=== PATIENT | male | born 1935 | race African-American/Black ===

== ENCOUNTER 2016-07-04 12:46 | Observation (INO) | payer OTHER ==
[2016-07-04 12:56] VITALS: TEMP 97.4; BMI 26.9
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
[2016-07-04 14:30] LABS: BASOPHIL 0.3 % (0-2.0); EOSINOPHIL 2.1 % (0-4.5); MCH 23.1 pg (25.7-33.7); MCHC 31.1 g/dl (32.0-35.9); MEAN CELL VOLUME 74.2 fl (80-96); MEAN PLT VOLUME 9.6 fl (7.5-11.1); PLATELET COUNT 150 K/MM3 (134-434); RDW 13.2 % (11.9-15.9); WHITE BLOOD COUNT 6.4 K/mm3 (4.0-10.0)
[2016-07-04 14:56] LABS: ALBUMIN 3.6 g/dl (3.4-5.0); ANION GAP 5 (8-16); BILIRUBIN,TOTAL 0.6 mg/dL (0.2-1.0); CALCIUM 8.3 mg/dL (8.5-10.1); CO2 30 mmol/L (21-32); CREATININE 0.9 mg/dL (0.7-1.3); GLUCOSE,RANDOM 102 mg/dL (74-106); SGOT/AST 13 U/L (15-37); SGPT/ALT 21 U/L (12-78); TOT PROT 6.8 g/dl (6.4-8.2)
[2016-07-04 14:59] LABS: ALK PHOS 88 U/L (45-117); TROPONIN I < 0.02 ng/ml (0.00-0.05)
[2016-07-04] MEDS ORDERED: PANTOPRAZOLE 40 MG TABLET (FP) PO ONE (17:02)
[2016-07-04] MEDS ORDERED: PANTOPRAZOLE 40 MG TABLET (FP) ONE (17:15)
--- NOTE | 2016-07-04 17:18 | PN ---
Teaching Attending Note Name of Resident: Jerry Angulo ATTENDING PHYSICIAN STATEMENT I saw and evaluated the patient. I reviewed the resident's note and discussed the case with the resident. I agree with the resident's findings and plan as documented. SUBJECTIVE: seen and evalated at the bedside OBJECTIVE: resting comfortably in no distress, physical exam completely WNL ASSESSMENT AND PLAN: 81 year old man with HTN, parkinson's, CVA presented with classical symptoms of GERD (heart burn) -pt states he had a burning sensation in mid-epigastric region that radiated up and caused burning sensation in the back of his throat -states that he ate little last night and nothing this morning -trop negative -EKG shows no ischemic changes -give dose of protonix now and discharge with protonix daily
[2016-07-04 17:40] VITALS: BP 140/71; PULSE 60
--- NOTE | 2016-07-04 23:30 | EKG ---
Test Reason : Blood Pressure : / mmHG Vent. Rate : 084 BPM Atrial Rate : 084 BPM P-R Int : 164 ms QRS Dur : 082 ms QT Int : 362 ms P-R-T Axes : 031 -04 001 degrees QTc Int : 427 ms NORMAL SINUS RHYTHM POSSIBLE LEFT ATRIAL ENLARGEMENT BORDERLINE ECG WHEN COMPARED WITH ECG OF 22-AUG-2015 20:19, ID INTERVAL HAS DECREASED Confirmed by NOLAN NGUYỄN MD ([id number]) on 07/04/2016 11:29:53 PM Referred By: Confirmed By:NOLAN NGUYỄN MD
== END 2016-07-04 17:40 | disposition home or self-care (01) ==
LOC: JER 12:46 → UNDOADMOB 16:58 → JERBED 16:58 → UNDOADMOB 17:18 → JERBED 17:19
PROVIDERS: ADMIT Internal Medicine; ATTEND Internal Medicine
DX: K21.9 Gastro-esophageal reflux disease without esophagitis (principal); R07.89 Other chest pain; I10 Essential (primary) hypertension; E78.00 Pure hypercholesterolemia, unspecified; N40.0 Benign prostatic hyperplasia without lower urinary tract symptoms; I69.351 Hemiplegia and hemiparesis following cerebral infarction affecting right dominant side; G20 Parkinson's disease; Z87.891 Personal history of nicotine dependence
CPT/HCPCS: 36415; 71010-TC; 80053; 82550; 84484; 85025; 93005; 93010; 99283-25; G0378

== ENCOUNTER 2017-04-10 12:44 | Emergency (ER) | payer OTHER ==
[2017-04-10 13:09] VITALS: BMI 26.9
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
[2017-04-10 13:58] LABS: BASOPHIL 0.5 % (0-2.0); EOSINOPHIL 3.9 % (0-4.5); MCHC 31.2 g/dl (32.0-35.9); MEAN CELL VOLUME 73.9 fl (80-96); MEAN PLT VOLUME 9.5 fl (7.5-11.1); NEUTROPHILS 69.6 % (42.8-82.8); PLATELET COUNT 179 K/MM3 (134-434); RDW 13.6 % (11.9-15.9); WHITE BLOOD COUNT 7.8 K/mm3 (4.0-10.0)
[2017-04-10 14:28] LABS: ALBUMIN 3.6 g/dl (3.4-5.0); ALK PHOS 104 U/L (45-117); ANION GAP 7 (8-16); BILIRUBIN,TOTAL 0.7 mg/dL (0.2-1.0); CALCIUM 8.9 mg/dL (8.5-10.1); CO2 30 mmol/L (21-32); CREATININE 0.9 mg/dL (0.7-1.3); GLUCOSE,RANDOM 107 mg/dL (74-106); SGOT/AST 16 U/L (15-37); SGPT/ALT 24 U/L (12-78); TOT PROT 7.2 g/dl (6.4-8.2)
[2017-04-10 15:52] VITALS: BP 122/72; PULSE 65; TEMP 97.8
== END 2017-04-10 15:52 | disposition home or self-care (01) ==
LOC: JER 12:44 → JERFT 12:44 → JER 15:52
DX: R51 Headache (principal); I10 Essential (primary) hypertension; Z86.73 Personal history of transient ischemic attack (TIA), and cerebral infarction without residual deficits
CPT/HCPCS: 36415; 70450-TC; 80053; 85025; 99282-25

== ENCOUNTER 2017-09-05 12:59 | Emergency (ER) | payer OTHER ==
[2017-09-05 13:08] VITALS: TEMP 97; BMI 26.4
[2017-09-05] MEDS ORDERED: ACETAMINOPHEN 325 MG TABLET (FP) PO ONE (13:43)
--- NOTE | 2017-09-05 13:44 | PDOC ---
Attending Attestation - HPI HPI: 09/05/17 15:11 The patient is an 82 year old male with a significant PMH of CVA (with mostly resolved residual right-sided deficits), TIA, Parkinsons disease, HTN, hyperlipidemia, and on LINQ alarm security or surveillance monitor who presents to the emergency department with lower back pain beginning approximately 2 days ago. He reports his lower back pain is consistent and moderate, located worse in the L lumbar spine but also slightly in the midline. Denies LE weakness, numbness. Denies fevers/chills. He denies any dysuria, urinary incontinence or changes in frequency. The patient denies difficulty ambulating. Allergies: Penicillins, Aspirin PCP: Dr. Collins Carrizales - Physicial Exam PE: 09/05/17 15:11 GENERAL: Awake, alert, and fully oriented, in no acute distress. +Masked facies. HEAD: No signs of trauma EYES: PERRLA, EOMI, sclera anicteric, conjunctiva clear ENT: Auricles normal inspection, hearing grossly normal, nares patent, oropharynx clear without exudates. Moist mucosa NECK: Normal ROM, supple, no lymphadenopathy, JVD, or masses LUNGS: Breath sounds equal, clear to auscultation bilaterally. No wheezes, and no crackles HEART: Regular rate and rhythm, normal S1 and S2, no murmurs, rubs or gallops ABDOMEN: Soft, nontender, normoactive bowel sounds. No guarding, no rebound. No masses EXTREMITIES: Normal range of motion, no edema. No clubbing or cyanosis. No cords , erythema, or tenderness BACK: No midline spinal tenderness in cervical/thoracic region. +lumbar midline TTP and left lumbar paraspinal ttp. NEUROLOGICAL: Normal speech, cranial nerves intact, negative pronator drift, 5/ 5 strength in all 4 extremities, normal sensation to light touch in all 4 extremities, normal cerebellar exam, steady shuffling gait, normal reflexes. + cogwheel rigidity and L>R pill rolling tremor at rest. SKIN: Warm, Dry, normal turgor, no rashes or lesions noted. <Josh Merrill - Last Filed: 09/05/17 15:11> - Resident Resident Name: Lorne Borja - ED Attending Attestation I have performed the following: I have examined & evaluated the patient, The case was reviewed & discussed with the resident, I agree w/resident's findings & plan, Exceptions are as noted - Medical Decision Making 09/05/17 16:38 82-year-old male with multiple medical problems including Parkinson's disease presents emergency Department with atraumatic lumbar back pain. Vitals unremarkable. Exam with mild lumbar midline tenderness and left paraspinal lumbar tenderness. Patient has normal strength and sensation in lower extremities and no urinary/stool retention/incont and thus unlikely cauda equina. He has no fevers or chills concerning for abscess. CT scan negative for acute pathology/fractures. Likely muscular pain. Pain well controlled with tylenol, requests DC home. I discussed the physical exam findings, ancillary test results and final diagnoses with the patient. I answered all of the patient's questions. The patient was satisfied with the care received and felt comfortable with the discharge plan and treatment plan. The patient will call their primary care physician within 24 hours to arrange follow-up and will return to the Emergency Department with any new, persistent or worsening symptoms. <Giovanni Kirby - Last Filed: 09/05/17 16:46>
[2017-09-05] MEDS ORDERED: ACETAMINOPHEN 325 MG TABLET (FP) ONE (13:50)
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
[2017-09-05 15:53] VITALS: BP 130/77; PULSE 60
== END 2017-09-05 17:06 | disposition home or self-care (01) ==
LOC: JER 12:59
DX: M54.5 Low back pain (principal); I10 Essential (primary) hypertension; E78.00 Pure hypercholesterolemia, unspecified; G20 Parkinson's disease; I69.851 Hemiplegia and hemiparesis following other cerebrovascular disease affecting right dominant side; Z95.818 Presence of other cardiac implants and grafts
CPT/HCPCS: 72131-TC; 99283-25

== ENCOUNTER 2017-10-19 10:35 | Emergency (ER) | payer OTHER ==
[2017-10-19 10:42] VITALS: BP 158/70; PULSE 70; TEMP 97.8; BMI 27.7
[2017-10-19] MEDS ORDERED: KETOROLAC TROMETHAMINE 30 MG/1 ML VIAL IM ONE (11:51)
[2017-10-19] MEDS ORDERED: traMADol HCL 50 MG TABLET PO ONE (11:51)
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
[2017-10-19] MEDS ORDERED: traMADol HCL 50 MG TABLET ONE (11:58)
[2017-10-19] MEDS ORDERED: KETOROLAC TROMETHAMINE 30 MG/1 ML VIAL ONE (11:58)
== END 2017-10-19 12:23 | disposition home or self-care (01) ==
LOC: JERFT 10:35
PROC: 3E0233Z Introduction of Anti-inflammatory into Muscle, Percutaneous Approach (ICD-10-PCS; principal; 2017-10-19)
DX: M48.061 Spinal stenosis, lumbar region without neurogenic claudication (principal); I10 Essential (primary) hypertension; E78.5 Hyperlipidemia, unspecified; G20 Parkinson's disease; Z86.73 Personal history of transient ischemic attack (TIA), and cerebral infarction without residual deficits
CPT/HCPCS: 96372; 99281-25

== ENCOUNTER 2018-01-02 22:25 | Emergency (ER) | payer OTHER ==
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
[2018-01-02 22:41] VITALS: BP 146/80; PULSE 97; TEMP 97.6; BMI 26.4
[2018-01-02] MEDS ORDERED: SODIUM CHLORIDE 1,000 ML IV STA (23:00)
[2018-01-02] MEDS ORDERED: METOCLOPRAMIDE HCL INJECTION 10 MG/2 ML VIAL IVPB ONE (23:00)
[2018-01-02] MEDS ORDERED: METOCLOPRAMIDE HCL INJECTION 10 MG/2 ML VIAL ONE (23:28)
[2018-01-02 23:53] LABS: BASO % 0.9 % (0-2.0); EOS % 3.9 % (0-4.5); HEMOGLOBIN 12.9 GM/dL (11.7-16.9); LYMPH % 23.2 % (8-40); MCH 23.5 pg (25.7-33.7); MCHC 31.5 g/dl (32.0-35.9); MEAN CELL VOLUME 74.5 fl (80-96); MEAN PLT VOLUME 9.8 fl (7.5-11.1); MONO % 10.2 % (3.8-10.2); NEUT % 61.8 % (42.8-82.8); PLATELET COUNT 167 K/MM3 (134-434); RDW 13.3 % (11.9-15.9); WHITE BLOOD COUNT 6.9 K/mm3 (4.0-10.0)
[2018-01-03 00:28] LABS: ALBUMIN 3.7 g/dl (3.4-5.0); ANION GAP 5 (8-16); BILIRUBIN,TOTAL 0.2 mg/dL (0.2-1.0); BLOOD UREA NITROGEN 15 mg/dL (7-18); CALCIUM 8.8 mg/dL (8.5-10.1); CHLORIDE 106 mmol/L (98-107); CO2 32 mmol/L (21-32); CREATININE 1.1 mg/dL (0.7-1.3); GLUCOSE,RANDOM 97 mg/dL (74-106); SGOT/AST 25 U/L (15-37); SGPT/ALT 28 U/L (12-78); SODIUM 143 mmol/L (136-145); TOT PROT 7.3 g/dl (6.4-8.2)
[2018-01-03 00:29] LABS: ALK PHOS 100 U/L (45-117)
[2018-01-03] MEDS ORDERED: DEXAMETHASONE SOD PHOSPHATE 20 MG/5 ML VIAL IVPB STA (01:55)
[2018-01-03] MEDS ORDERED: KETOROLAC TROMETHAMINE 15 MG/ML VIAL IVPUSH ONE (01:57)
--- NOTE | 2018-01-03 02:02 | PDOC ---
Attending Attestation - Resident Resident Name: JagdishdainasinanFrank - ED Attending Attestation I have performed the following: I have examined & evaluated the patient, The case was reviewed & discussed with the resident, I agree w/resident's findings & plan, Exceptions are as noted - HPI HPI: 01/03/18 01:58 82 yo male with 3 day history of left sided headache - Physicial Exam PE: 01/03/18 01:58 wnwd 82 yo male in no acute distress p/w left sided headache head ncat neck supple eyes howard eomi lungs cta b/l cvs [id number] abd nontender musculoskeletal - resting tremoe in rt arm,soft voice, alert and conversant neuro axox3,resting hand tremor,moving all extremities - Medical Decision Making 01/04/18 16:49 pt had chronic resting tremor,soft voice c/s his parkinson;s ds,ct head negative for any acute intracranial pathology -imp headache,d/c home
== END 2018-01-03 03:17 | disposition home or self-care (01) ==
LOC: JER 22:25
PROC: 3E0337Z Introduction of Electrolytic and Water Balance Substance into Peripheral Vein, Percutaneous Approach (ICD-10-PCS; principal; 2018-01-02)
PROC: 3E033GC Introduction of Other Therapeutic Substance into Peripheral Vein, Percutaneous Approach (ICD-10-PCS; 2018-01-02)
PROC: 3E033GC Introduction of Other Therapeutic Substance into Peripheral Vein, Percutaneous Approach (ICD-10-PCS; 2018-01-02)
PROC: 3E0333Z Introduction of Anti-inflammatory into Peripheral Vein, Percutaneous Approach (ICD-10-PCS; 2018-01-02)
DX: R51 Headache (principal); I10 Essential (primary) hypertension; E78.00 Pure hypercholesterolemia, unspecified; G20 Parkinson's disease; M54.5 Low back pain; G89.29 Other chronic pain; Z87.820 Personal history of traumatic brain injury; Z86.73 Personal history of transient ischemic attack (TIA), and cerebral infarction without residual deficits; Z95.0 Presence of cardiac pacemaker
CPT/HCPCS: 36415; 70450-TC; 80053; 85025; 96361; 96374; 96375; 99281-25; J7030

== ENCOUNTER 2019-05-14 08:50 | Observation (INO) | payer OTHER ==
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
--- NOTE | 2019-05-14 09:36 | PDOC ---
Attending Attestation - Resident Resident Name: Salvador Paredes - ED Attending Attestation I have performed the following: I have examined & evaluated the patient, The case was reviewed & discussed with the resident, I agree w/resident's findings & plan, Exceptions are as noted - HPI HPI: 05/14/19 10:53 84y M hx of parkinsons, htn, hl, cva, with chronic back pain, nonbstrucive cardiac disease (3 caths w/o stents) presents with chest pain since this morning lasting for a fewminute in the L chest wall, radiating down his arm without associated n/v, sob. pain was pressure like in nature and noted he was a bit diaphroetic. Pt denies any fever/chills, cough, sob, abd pain, back pain, neck pain, leg swelling. Pt does endorse intermittent pains in the L arm that comes and goes. Pt denies any dysuria, diarhea, bpr. Physical Exam: GENERAL: The patient is awake, alert, and fully oriented, Nontoxic - in no acute distress. HEAD: Normocephalic, atraumatic. EYES: extraocular movements intact, sclera anicteric, conjunctiva clear. ENT: Normal voice, Moist mucous membranes. NECK: Normal range of motion, supple LUNGS: Breath sounds equal, clear to auscultation bilaterally. No wheezes, no rhonchi, no rales. HEART: Regular rate and rhythm, normal S1 and S2 without murmur, rub or gallop. ABDOMEN: Soft, nontender, No guarding, no rebound. No CVA tenderness EXTREMITIES: Normal range of motion, no edema. NEUROLOGICAL: No facial assymetry, Normal speech, PSYCH: Normal mood, normal affect. SKIN: Warm, Dry, normal turgor, bp 191/83 in R arm, 189/79 in L arm consider acs pts bp elevated here. will give ASA - Medical Decision Making 05/14/19 12:16 trop neg pt in no pain ekg non ischemic will admit to obs for further risk strateification
[2019-05-14 10:23] LABS: BASO % 0.6 % (0-2.0); EOS % 2.5 % (0-4.5); HEMATOCRIT 37.3 % (35.4-49); HEMOGLOBIN 11.9 GM/dL (11.7-16.9); LYMPH % 19.6 % (8-40); MCH 23.6 pg (25.7-33.7); MCHC 31.8 g/dl (32.0-35.9); MEAN CELL VOLUME 74.1 fl (80-96); MEAN PLT VOLUME 9.5 fl (7.5-11.1); MONO % 11.5 % (3.8-10.2); NEUT % 65.8 % (42.8-82.8); PLATELET COUNT 154 K/MM3 (134-434); RBC 5.04 M/mm3 (4.00-5.60); RDW 13.4 % (11.9-15.9); WHITE BLOOD COUNT 5.7 K/mm3 (4.0-10.0)
[2019-05-14 10:33] LABS: INR 1.04 (0.83-1.09); PROTHROMBIN TIME (PATIENT) 12.3 SEC (9.7-13.0)
[2019-05-14 10:36] LABS: ACTIVATED PTT 37.7 SECONDS (25.2-36.5)
[2019-05-14 10:48] LABS: ALBUMIN 3.6 g/dl (3.4-5.0); BILIRUBIN,TOTAL 0.4 mg/dL (0.2-1); BLOOD UREA NITROGEN 26.7 mg/dL (7-18); CALCIUM 8.8 mg/dL (8.5-10.1); POTASSIUM 4.2 mmol/L (3.5-5.1); TOT PROT 6.7 g/dl (6.4-8.2)
[2019-05-14] MEDS ORDERED: ASPIRIN 81 MG CHEWABLE TABLETS PO ONE (11:06)
[2019-05-14] MEDS ORDERED: ASPIRIN 81 MG CHEWABLE TABLETS ONE (11:20)
[2019-05-14] MEDS ORDERED: rOPINIRole HCL 0.5 MG TABLET PO SCH (13:30)
[2019-05-14] MEDS ORDERED: amLODIPine BESYLATE 5 MG TABLET (FP) PO SCH (13:30)
[2019-05-14] MEDS ORDERED: AMANTADINE HCL 100 MG TABLET PO SCH (13:30)
[2019-05-14] MEDS ORDERED: CARBIDOPA/LEVODOPA 25/100 TABLET (FP) PO SCH ×2 (13:30→22:00)
[2019-05-14] MEDS ORDERED: FOSINOPRIL SODIUM 10 MG PO SCH (13:30)
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
[2019-05-14] MEDS: ASPIRIN COATED 81 MG TABLET.EC PO SCH (13:55)
[2019-05-14] MEDS ORDERED: ENOXAPARIN NA (PORCINE) 40 MG/0.4 ML DISP.SYRIN SQ ONE (14:07)
[2019-05-14] MEDS ORDERED: LISINOPRIL 20 MG TABLET (FP) ONE (14:07)
[2019-05-14] MEDS: LISINOPRIL 20 MG TABLET (FP) PO SCH (14:13)
[2019-05-14] MEDS: ENOXAPARIN NA (PORCINE) 40 MG/0.4 ML DISP.SYRIN SQ SCH (14:13)
[2019-05-14] MEDS ORDERED: CARBIDOPA/LEVODOPA 25/100 TABLET (FP) ONE (14:25)
[2019-05-14] MEDS ORDERED: PANTOPRAZOLE 20 MG TABLET (FP) PO ONE (14:26)
[2019-05-14] MEDS ORDERED: LISINOPRIL 20 MG TABLET (FP) PO ONE (14:30)
[2019-05-14] MEDS: PANTOPRAZOLE 20 MG TABLET (FP) PO SCH (14:31)
--- NOTE | 2019-05-14 14:35 | PN ---
Teaching Attending Note Name of Resident: Juli Huang ATTENDING PHYSICIAN STATEMENT I saw and evaluated the patient. I reviewed the resident's note and discussed the case with the resident. I agree with the resident's findings and plan as documented with exceptions below. SUBJECTIVE: 84 yom with PMHx of HTN, HLD, Parkinson's disease, ?TIA (2014), was in his USOH till this AM when had left sided chest pain radiating left and arm and left neck. His symptoms resolved within a few min with no recurrence since. Noted his BP was 210s/80s, so came to the ED. Reports similar symptoms in March this year, when was admitted to a hospital in [place], noted hypertensive. No reported changes made to his medications then Patient currently asymptomatic. Reports going for therapy and also exercises in the gym for an hour, of which walks on a treadmill for 30 min with no c/o exertional chest pain, dyspnea. 12 point ROS neg currently. Ambulates independently, lives with his daughter. OBJECTIVE: Vital Signs Period Temp Pulse Resp BP Sys/Pozo Pulse Ox Last 24 Hr 97.5 F-98.1 F 60-90 16-18 137-190/77-82 96-99 Intake & Output 05/11/19 05/12/19 05/13/19 05/14/19 23:59 23:59 23:59 23:59 Weight 191 lb GENERAL: Awake, alert, and fully oriented, in no acute distress. HEAD: Normal with no signs of trauma. EYES: Pupils equal, round and reactive to light, extraocular movements intact, sclera anicteric, conjunctiva clear. No lid lag. EARS, NOSE, THROAT: Ears normal, nares patent, oropharynx clear without exudates. Moist mucous membranes. NECK: Normal range of motion, supple , no JVD or mass noted LUNGS: Breath sounds equal, clear to auscultation bilaterally. No wheezes, and no crackles. No accessory muscle use. HEART: Regular rate and rhythm, normal S1 and S2, no murmur appreciated ABDOMEN: Soft, nontender, not distended, normoactive bowel sounds, no guarding, no rebound, no masses. MUSCULOSKELETAL: Normal range of motion at all joints. No bony deformities or tenderness. No CVA tenderness. UPPER EXTREMITIES: 2+ pulses, warm, well-perfused. No cyanosis. No clubbing. No peripheral edema. LOWER EXTREMITIES: 2+ pulses, warm, well-perfused. No calf tenderness. No peripheral edema. NEUROLOGICAL: AAOx3, resting tremors, mask like face, speech slow, facial symmetry, tongue midline, EOMI, PERRL, Cranial nerves II-XII intact. Gait not observed PSYCHIATRIC: Cooperative. Good eye contact. Appropriate mood and affect. SKIN: Warm, dry, normal turgor, no rashes or lesions noted, normal capillary refill. Home Medications Medication Instructions Recorded Atenolol [Tenormin] 50 mg PO HS 08/22/15 Carbidopa/Levodopa [Sinemet 25-100 1 each PO TID 08/22/15 mg Tablet] Alprazolam [Xanax] 0.25 mg PO HS 05/14/19 Amantadine HCl [Amantadine] 100 mg PO BID 05/14/19 Amlodipine Besylate 2.5 mg PO DAILY 05/14/19 Aspirin [Ecotrin] 81 mg PO DAILY 05/14/19 Atorvastatin Ca [Lipitor] 40 mg PO HS 05/14/19 Lisinopril 20 mg PO DAILY 05/14/19 Omeprazole Magnesium [Prilosec Otc] 20 mg PO DAILY 05/14/19 Ropinirole HCl 0.5 mg PO BID 05/14/19 Tamsulosin HCl [Flomax] 0.4 mg PO HS 05/14/19 Active Medications Amantadine HCl (Symmetrel -) 100 mg PO BID [facility] Amlodipine Besylate (Norvasc -) 2.5 mg PO DAILY [facility] Aspirin (Ecotrin -) 81 mg PO DAILY [facility] Last Admin: 05/14/19 13:55 Dose: Not Given Atenolol (Tenormin -) 50 mg PO DAILY [facility] Atorvastatin Calcium (Lipitor -) 40 mg PO HS [facility] Carbidopa/Levodopa (Sinemet 25/100 -) 1 each PO TID [facility] Enoxaparin Sodium (Lovenox -) 40 mg SQ DAILY [facility] Last Admin: 05/14/19 14:13 Dose: 40 mg Lisinopril (Prinivil) 20 mg PO DAILY [facility] Last Admin: 05/14/19 14:13 Dose: 20 mg Pantoprazole Sodium (Protonix -) 20 mg PO DAILY [facility] Last Admin: 05/14/19 14:31 Dose: 20 mg Ropinirole HCl (Requip -) 0.5 mg PO BID [facility] Tamsulosin HCl (Flomax -) 0.4 mg PO HS [facility] Laboratory Results - last 24 hr 05/14/19 05/14/19 05/14/19 10:10 10:10 10:10 WBC 5.7 RBC 5.04 Hgb 11.9 Hct 37.3 MCV 74.1 L MCH 23.6 L MCHC 31.8 L RDW 13.4 Plt Count 154 MPV 9.5 Absolute Neuts (auto) 3.7 Neutrophils % 65.8 Lymphocytes % 19.6 Monocytes % 11.5 H Eosinophils % 2.5 Basophils % 0.6 Nucleated RBC % 0 PT with INR INR PTT (Actin FS) Sodium 143 Potassium 4.2 Chloride 110 H Carbon Dioxide 29 Anion Gap 4 L BUN 26.7 H Creatinine 1.0 Est GFR (CKD-EPI)AfAm 79.75 Est GFR (CKD-EPI)NonAf 68.81 Random Glucose 100 Calcium 8.8 Total Bilirubin 0.4 AST 18 ALT 19 Alkaline Phosphatase 83 Creatine Kinase 89 Troponin I < 0.02 Total Protein 6.7 Albumin 3.6 05/14/19 10:10 WBC RBC Hgb Hct MCV MCH MCHC RDW Plt Count MPV Absolute Neuts (auto) Neutrophils % Lymphocytes % Monocytes % Eosinophils % Basophils % Nucleated RBC % PT with INR 12.30 INR 1.04 PTT (Actin FS) 37.7 H Sodium Potassium Chloride Carbon Dioxide Anion Gap BUN Creatinine Est GFR (CKD-EPI)AfAm Est GFR (CKD-EPI)NonAf Random Glucose Calcium Total Bilirubin AST ALT Alkaline Phosphatase Creatine Kinase Troponin I Total Protein Albumin CXR no acute process EKG: NSR, T inversion in V3 and flat T in V4(new), Unchanged T inversion in III ASSESSMENT AND PLAN: 84 yom with PMhx of HTn, HLD, parkinson's disease, ?TIA in 2015, admitted with chest pain and hypertensive urgency -Chest pain, suspect from uncontrolled BP rather than ACS -Hypertensive urgency -Parkinson's disease -HTN -HLD -?TIA in 2014 Plan: Resume home atenolol/lisinopril/amlodipine. Additional meds based on BP readings. Would avoid HCTZ given age, high risk for dehydration. Telemetry, cycle troponin. 2D echo. Patient reports last cardiac testing about 10 years ago. stress test if BP improved. Can be followed outpatient if bp better, symptoms resolved and no new concerns inhouse. Cardiology input Continue ASA/statin. Check lipid panel Continue home sinemet/Amantadine/ropinirole/flomax DVTPPX heparin Dispo admit to telemetry obs Dc in 24 hours if improved and w/u neg Plan discussed with patient and daughter at bedside in detail, all questions answered Total admit time 55 min.
[2019-05-14] MEDS ORDERED: hydrALAZINE HCL 20 MG/ML VIAL IVPUSH PRN (14:45)
[2019-05-14] MEDS ORDERED: ATENOLOL 25 MG TABLET (FP) ONE (14:46)
[2019-05-14] MEDS: ATENOLOL 50 MG TABLET (FP) PO SCH ×2 (14:51→22:01)
[2019-05-14 16:16] VITALS: BMI 25.2
--- NOTE | 2019-05-14 20:53 | CON.CARD ---
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 3 caths w/o stents) presents with chest pain since this morning lasting for a few minutes in the L chest wall, radiating down his left arm without associated n/v , sob. pain was moderate, pressure like in nature,lasted "about 15 seconds" and noted he was a bit diaphoretic. Pt denies any fever/chills, cough, sob, abd pain, back pain, neck pain, leg swelling. Pt does endorse intermittent pains in the L arm that comes and goes. Pt denies any dysuria, diarhea, bpr. 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 Cardio/Vascular: Yes: CAD ("nonobstructive diesease on ?3 caths (per record, though pt denies having had angiograms)), HTN, Hyperlipdemia Pulmonary: No: Asthma Renal/: Yes: BPH - Past Surgical History Past Surgical History: Yes: TURP - Alcohol/Substance Use Hx Alcohol Use: No History of Substance Use: reports: None - Smoking History Smoking history: Never smoked Have you smoked in the past 12 months: No Aproximately how many cigarettes per day: 0 If you are a former smoker, when did you quit?: 40 yrs ago - Social History ADL: Independent 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 History of Recent Travel: No Home Medications - Allergies Allergies/Adverse Reactions: Allergies Allergy/AdvReac Type Severity Reaction Status Date / Time Penicillins Allergy Mild Hives Verified 05/14/19 08:52 - Home Medications Home Medications: Ambulatory Orders Atenolol [Tenormin] 50 mg PO HS 08/22/15 Carbidopa/Levodopa [Sinemet 25-100 mg Tablet] 1 each PO TID 08/22/15 Alprazolam [Xanax] 0.25 mg PO HS 05/14/19 Amantadine HCl [Amantadine] 100 mg PO BID 05/14/19 Amlodipine Besylate 2.5 mg PO DAILY 05/14/19 Aspirin [Ecotrin] 81 mg PO DAILY 05/14/19 Atorvastatin Ca [Lipitor] 40 mg PO HS 05/14/19 Lisinopril 20 mg PO DAILY 05/14/19 Omeprazole Magnesium [Prilosec Otc] 20 mg PO DAILY 05/14/19 Ropinirole HCl 0.5 mg PO BID 05/14/19 Tamsulosin HCl [Flomax] 0.4 mg PO HS 05/14/19 Family Medical History Family History: Denies Review of Systems - Review of Systems Constitutional: reports: Weakness Eyes: reports: No Symptoms HENT: reports: No Symptoms Neck: reports: No Symptoms Cardiovascular: reports: Chest Pain Respiratory: reports: SOB on Exertion Gastrointestinal: reports: No Symptoms Genitourinary: reports: No Symptoms Breasts: reports: No Symptoms Reported Musculoskeletal: reports: Muscle Weakness Integumentary: reports: No Symptoms Neurological: reports: Weakness Endocrine: reports: No Symptoms Hematology/Lymphatic: reports: No Symptoms Psychiatric: reports: No Symptoms - Risk Factors Known Risk Factors: Yes: Age, Gender, Hypercholesterolemia, Hypertension, Physical Inactivity, Race Vital Signs: Vital Signs Temperature 98.2 F 05/14/19 15:53 Pulse Rate 77 05/14/19 15:53 Respiratory Rate 18 05/14/19 16:16 Blood Pressure 135/71 05/14/19 15:53 O2 Sat by Pulse Oximetry (%) 98 05/14/19 16:16 Constitutional: Yes: No Distress Eyes: Yes: WNL HENT: Yes: WNL Neck: Yes: Decreased ROM Respiratory: Yes: WNL Gastrointestinal: Yes: WNL Renal/: No: Anuria Heart Sounds: Yes: S1, S2 Murmur: Yes: Diastolic Murmur, Grade 2 Musculoskeletal: Yes: Joint Stiffness, Muscle Weakness Extremities: Yes: Cool Edema: No Peripheral Pulses WNL: Yes Integumentary: Yes: WNL Psychiatric: Yes: Alert, Oriented - Other Data Labs, Other Data: CBC, BMP 05/14/19 10:10 05/14/19 10:10 INR, PTT INR 1.04 (0.83-1.09) 05/14/19 10:10 Troponin, BNP 05/14/19 10:10 Troponin I < 0.02 Troponin, BNP 05/14/19 10:10 Troponin I < 0.02 Abnormal Lab Results 05/14/19 05/14/19 05/14/19 10:10 10:10 10:10 MCV 74.1 L MCH 23.6 L MCHC 31.8 L Monocytes % 11.5 H PTT (Actin FS) 37.7 H Chloride 110 H Anion Gap 4 L BUN 26.7 H Imaging - Results Chest X-ray: Image Reviewed EKG: Image Reviewed (NSR; LAE) Problem List - Problems (1) Atypical chest pain Assessment/Plan: left-sided chest pain down the left shoulder at rest this morning on awakening; lasted about 15 seconds. Hospitalized 03/2019 overnight in [place] for chest pain. F/u records of prior ?coronary angiograms. TNI < 0.02; 2nd set pending (if negative, planned for stress Lexiscan MIBI). Pt with hx CVA 2015-->left sided weakness. Parkinson's. Elevated LDL-->atorvastatin (f/u TSH). Code(s): R07.89 - OTHER CHEST PAIN (2) HLD (hyperlipidemia) Code(s): E78.5 - HYPERLIPIDEMIA, UNSPECIFIED (3) HTN (hypertension) Assessment/Plan: On antelnolol, lisinopril, hydralazinhe. For ECHO and stress MIBI. Code(s): I10 - ESSENTIAL (PRIMARY) HYPERTENSION (4) Parkinson disease Code(s): G20 - PARKINSON'S DISEASE
[2019-05-14] MEDS ORDERED: PT OWN MED DRAWER 7, Y5N ONE (21:09)
[2019-05-14] MEDS: AMANTADINE HCL 100 MG TABLET PO SCH ×2 (21:50→22:03)
[2019-05-14] MEDS: rOPINIRole HCL 0.5 MG TABLET PO SCH (21:51)
[2019-05-14] MEDS ORDERED: ATORVASTATIN CA 40 MG TABLET (FP) PO SCH (22:00)
[2019-05-14] MEDS ORDERED: ATENOLOL 50 MG TABLET (FP) PO SCH (22:00)
[2019-05-14] MEDS ORDERED: TAMSULOSIN HCL 0.4 MG CAP PO SCH (22:00)
[2019-05-15 07:41] LABS: BLOOD UREA NITROGEN 24.9 mg/dL (7-18); CALCIUM 8.8 mg/dL (8.5-10.1); CREATININE 0.9 mg/dL (0.55-1.3); MAGNESIUM 2.5 mg/dL (1.8-2.4); PHOSPHOROUS 3.1 mg/dL (2.5-4.9); POTASSIUM 4.3 mmol/L (3.5-5.1)
[2019-05-15 07:42] LABS: CHOLESTEROL 128 mg/dL (50-200); HDL CHOLESTEROL 31 mg/dL (40-60); LDL CHOLESTEROL (ONLY SJRH) 80 mg/dL (5-100); TRIGLYCERIDES 96 mg/dL (0-150)
[2019-05-15] MEDS: LISINOPRIL 20 MG TABLET (FP) PO SCH ×2 (07:52→12:14)
[2019-05-15] MEDS: PANTOPRAZOLE 20 MG TABLET (FP) PO SCH ×2 (07:52→12:17)
[2019-05-15] MEDS: amLODIPine BESYLATE 2.5 MG TABLET (FP) PO SCH ×2 (07:52→12:14)
[2019-05-15 07:53] LABS: HEMATOCRIT 36.4 % (35.4-49); HEMOGLOBIN 11.5 GM/dL (11.7-16.9); MCH 23.7 pg (25.7-33.7); MCHC 31.6 g/dl (32.0-35.9); MEAN CELL VOLUME 74.9 fl (80-96); MEAN PLT VOLUME 10.2 fl (7.5-11.1); PLATELET COUNT 152 K/MM3 (134-434); RBC 4.86 M/mm3 (4.00-5.60); RDW 13.3 % (11.9-15.9); WHITE BLOOD COUNT 6.4 K/mm3 (4.0-10.0)
--- NOTE | 2019-05-15 10:07 | EKG ---
Test Reason : Blood Pressure : / mmHG Vent. Rate : 088 BPM Atrial Rate : 088 BPM P-R Int : 180 ms QRS Dur : 072 ms QT Int : 366 ms P-R-T Axes : 052 023 005 degrees QTc Int : 442 ms NORMAL SINUS RHYTHM POSSIBLE LEFT ATRIAL ENLARGEMENT CANNOT RULE OUT ANTERIOR INFARCT , AGE UNDETERMINED ABNORMAL ECG WHEN COMPARED WITH ECG OF 04-JUL-2016 13:01, T WAVE VARIATION Confirmed by ABEL LANG, ANIKA ([id number]) on 05/15/2019 10:07:09 AM Referred By: Confirmed By:ANIKA ROMAN MD
--- NOTE | 2019-05-15 10:19 | PN ---
Progress Note, Physician History of Present Illness: No further chest pain or dyspnea, stress testing results pending - Current Medication List Current Medications: Active Medications Amantadine HCl (Symmetrel -) 100 mg PO BID [facility] Last Admin: 05/14/19 22:03 Dose: Not Given Amlodipine Besylate (Norvasc -) 2.5 mg PO DAILY [facility] Last Admin: 05/15/19 07:52 Dose: 2.5 mg Aspirin (Ecotrin -) 81 mg PO DAILY [facility] Last Admin: 05/14/19 13:55 Dose: Not Given Atenolol (Tenormin -) 50 mg PO DAILY [facility] Last Admin: 05/14/19 22:01 Dose: 50 mg Atorvastatin Calcium (Lipitor -) 40 mg PO [facility] Last Admin: 05/14/19 21:51 Dose: 40 mg Carbidopa/Levodopa (Sinemet 25/100 -) 1 each PO 0000,1200,1600 [facility] Enoxaparin Sodium (Lovenox -) 40 mg SQ DAILY [facility] Last Admin: 05/14/19 14:13 Dose: 40 mg Hydralazine HCl (Apresoline Injection -) 10 mg IVPUSH Q6H PRN PRN Reason: HYPERTENSION Lisinopril (Prinivil) 20 mg PO DAILY [facility] Last Admin: 05/15/19 07:52 Dose: 20 mg Pantoprazole Sodium (Protonix -) 20 mg PO DAILY [facility] Last Admin: 05/15/19 07:52 Dose: 20 mg Ropinirole HCl (Requip -) 0.5 mg PO BID [facility] Last Admin: 05/14/19 21:51 Dose: 0.5 mg Tamsulosin HCl (Flomax -) 0.4 mg PO [facility] Last Admin: 05/14/19 21:51 Dose: 0.4 mg - Objective Vital Signs: Vital Signs Temperature 98.7 F 05/15/19 09:32 Pulse Rate 53 L 05/15/19 09:32 Respiratory Rate 20 05/15/19 09:32 Blood Pressure 132/64 05/15/19 09:32 O2 Sat by Pulse Oximetry (%) 98 05/15/19 09:32 Constitutional: Yes: No Distress, Calm Neck: Yes: Supple Cardiovascular: Yes: Regular Rate and Rhythm Respiratory: Yes: Regular, CTA Bilaterally Gastrointestinal: Yes: Normal Bowel Sounds, Soft Edema: No Labs: CBC, BMP 05/15/19 06:05 05/15/19 06:05 INR, PTT INR 1.04 (0.83-1.09) 05/14/19 10:10 Assessment/Plan 05/15/2019 Echo: Normal LV and RV size and fxn, grade I DD, mild-mod MR, AR, mild TR, RVSP 31 mmHg 12/04/2008 Nonobstructive CAD, 40% prox LAD CSA 8.4 mm^s, normal LV fxn LVEF 55% - Problems (1) Atypical chest pain Assessment/Plan: left-sided chest pain down the left shoulder at rest this morning on awakening; lasted about 15 seconds. Hospitalized 03/2019 overnight in [place] for chest pain. Ruled out for NC, await stress Lexiscan MIBI results Pt with hx CVA 2015-->left sided weakness. Parkinson's. Elevated LDL-->atorvastatin 40 qhs (f/u TSH). Continue ASA 81 qd Code(s): R07.89 - OTHER CHEST PAIN (2) HLD (hyperlipidemia) Code(s): E78.5 - HYPERLIPIDEMIA, UNSPECIFIED (3) HTN (hypertension) Assessment/Plan: On atenolol 50 qd, lisinopril 20 qd, Norvasc 2.5 qd, hydralazine IV as needed. Await stress MIBI results. Code(s): I10 - ESSENTIAL (PRIMARY) HYPERTENSION (4) Parkinson disease Code(s): G20 - PARKINSON'S DISEASE On Amantadine, Sinemet and Requip
[2019-05-15] MEDS ORDERED: REGADENOSON 0.4 MG/5 ML PRE-FILLED SYRINGE IVPUSH ONE ×2 (10:56→11:15)
[2019-05-15] MEDS: ATENOLOL 50 MG TABLET (FP) PO SCH (12:16)
[2019-05-15] MEDS: rOPINIRole HCL 0.5 MG TABLET PO SCH (12:17)
[2019-05-15] MEDS: ASPIRIN COATED 81 MG TABLET.EC PO SCH (12:17)
[2019-05-15] MEDS: ENOXAPARIN NA (PORCINE) 40 MG/0.4 ML DISP.SYRIN SQ SCH (12:17)
--- NOTE | 2019-05-15 12:34 | ECHO ---
Name: HILARIAREGULO Exam:Adult Echocardiogram Study Date: 05/15/2019 08:40 AM Age: 84 yrs Height: 72 in Weight: 191 lb BSA: 2.1 m2 MMode/2D Measurements & Calculations IVSd: 1.1 cm Ao root diam: 3.5 cm LVIDd: 3.9 cm LA dimension: 3.7 cm LVIDs: 2.8 cm LVPWd: 1.2 cm LVPWs: 1.3 cm EDV(Teich): 66.0 ml ESV(Teich): 29.1 ml LVOT diam: 2.1 cm RV S Oli: 10.8 cm/sec Doppler Measurements & Calculations MV E max oli: 66.6 cm/sec Ao V2 max: 146.3 cm/sec MV A max oli: 86.9 cm/sec Ao max P.8 mmHg MV E/A: 0.77 AI P1/2t: 575.4 msec MV dec time: 0.16 sec DELFINO(V,D): 2.6 cm2 AI max oli: 337.3 cm/sec LV V1 max P.1 mmHg AI max P.8 mmHg LV V1 max: 113.3 cm/sec AI dec slope: 171.7 cm/sec2 TR max oli: 262.4 cm/sec PA V2 max: 111.3 cm/sec TR max P.5 mmHg PA max P.0 mmHg Med Peak E' Oli: 4.9 cm/sec Med E/e': 13.7 Lat Peak E' Oil: 8.1 cm/sec Lat E/e': 8.2 Procedure A complete two-dimensional transthoracic echocardiogram was performed (2D, M-mode, Doppler and color flow Doppler). Left Ventricle The left ventricle is normal in size. Left ventricular systolic function is normal. Ejection Fraction = 55- 60%. Grade I diastolic dysfunction, (abnormal relaxation pattern). Ratio E/E'= 13. No regional wall m otion abnormalities noted. Right Ventricle The right ventricle is normal size. The right ventricular systolic function is normal. RV systolic TD I is 11 cm/s. Atria The left atrial size is normal. Right atrial size is normal. Mitral Valve There is mild mitral valve thickening. There is mild to moderate mitral regurgitation. Tricuspid Valve The tricuspid valve is normal in structure and function. There is mild tricuspid regurgitation. Pulmo nary artery systolic pressure is at least 31 mmHg if RA pressure is assumed 3 mmHg. Aortic Valve There is mild to moderate aortic sclerosis.;. Mild to moderate aortic regurgitation. Pulmonic Valve The pulmonic valve is not well visualized. Great Vessels The aortic root is normal size. Pericardium/Pleura There is no pericardial effusion. Interpretation Summary The left ventricle is normal in size. Left ventricular systolic function is normal. No regional wall motion abnormalities noted. Ejection Fraction = 55-60%. Grade I diastolic dysfunction, (abnormal relaxation pattern). Ratio E/E'= 13 The right ventricular systolic function is normal. The left atrial size is normal. Right atrial size is normal. There is mild mitral valve thickening. There is mild to moderate mitral regurgitation. There is mild tricuspid regurgitation. Pulmonary artery systolic pressure is at least 31 mmHg if RA pressure is assumed 3 mmHg There is mild to moderate aortic sclerosis. Mild to moderate aortic regurgitation. There is no pericardial effusion. Jordan Caba MD 05/15/2019 12:34 PM
[2019-05-15] MEDS: CARBIDOPA/LEVODOPA 25/100 TABLET (FP) PO SCH ×2 (13:46→17:11)
[2019-05-15] MEDS: AMANTADINE HCL 100 MG TABLET PO SCH (13:46)
--- NOTE | 2019-05-15 15:14 | PN ---
Teaching Attending Note Name of Resident: Sonny Rushing ATTENDING PHYSICIAN STATEMENT I saw and evaluated the patient. I reviewed the resident's note and discussed the case with the resident. I agree with the resident's findings and plan as documented with exceptions below. SUBJECTIVE: Patient seen and examined. no chest pain or concerns. Doing well. OBJECTIVE: Vital Signs Period Temp Pulse Resp BP Sys/Pozo Pulse Ox Last 24 Hr 97.8 F-98.7 F 53-86 18-20 130-179/60-82 98-98 Intake & Output 05/12/19 05/13/19 05/14/19 05/15/19 23:59 23:59 23:59 23:59 Intake Total 250 20 Balance 250 20 Weight 196 lb 4 oz General: sitting in bed, no acute distress neck: soft, supple Chest: CTAB, no rales or wheezing Abdomen:Soft, NT Extremities: no edema Home Medications Medication Instructions Recorded Atenolol [Tenormin] 50 mg PO HS 08/22/15 Carbidopa/Levodopa [Sinemet 25-100 1 each PO TID 08/22/15 mg Tablet] Alprazolam [Xanax] 0.25 mg PO HS 05/14/19 Amantadine HCl [Amantadine] 100 mg PO BID 05/14/19 Amlodipine Besylate 2.5 mg PO DAILY 05/14/19 Aspirin [Ecotrin] 81 mg PO DAILY 05/14/19 Atorvastatin Ca [Lipitor] 40 mg PO HS 05/14/19 Lisinopril 20 mg PO DAILY 05/14/19 Omeprazole Magnesium [Prilosec Otc] 20 mg PO DAILY 05/14/19 Ropinirole HCl 0.5 mg PO BID 05/14/19 Tamsulosin HCl [Flomax] 0.4 mg PO HS 05/14/19 Laboratory Results - last 24 hr 05/14/19 05/15/19 05/15/19 20:33 06:05 06:05 WBC 6.4 RBC 4.86 Hgb 11.5 L Hct 36.4 MCV 74.9 L MCH 23.7 L MCHC 31.6 L RDW 13.3 Plt Count 152 MPV 10.2 Sodium 142 Potassium 4.3 Chloride 110 H Carbon Dioxide 28 Anion Gap 4 L BUN 24.9 H Creatinine 0.9 Est GFR (CKD-EPI)AfAm 90.58 Est GFR (CKD-EPI)NonAf 78.15 Random Glucose 94 Hemoglobin A1c % Calcium 8.8 Phosphorus 3.1 Magnesium 2.5 H Troponin I < 0.02 Triglycerides Cholesterol Total LDL Cholesterol HDL Cholesterol 05/15/19 05/15/19 06:05 06:05 WBC RBC Hgb Hct MCV MCH MCHC RDW Plt Count MPV Sodium Potassium Chloride Carbon Dioxide Anion Gap BUN Creatinine Est GFR (CKD-EPI)AfAm Est GFR (CKD-EPI)NonAf Random Glucose Hemoglobin A1c % 4.4 Calcium Phosphorus Magnesium Troponin I Triglycerides 96 Cholesterol 128 Total LDL Cholesterol 80 HDL Cholesterol 31 L 2D echo and stress tests results reviewed ASSESSMENT AND PLAN: 84 yom with PMhx of HTn, HLD, parkinson's disease, ?TIA in 2014, admitted with chest pain and hypertensive urgency -Chest pain, suspect from uncontrolled BP rather than ACS -Hypertensive urgency -Parkinson's disease -HTN -HLD -?TIA in 2014 Plan: BP stable, BP meds changed to AM inhouse. Stress test results noted, discussed with Dr. Romero plan for medical management and outpatient follow up Discussed with patient and Daughter at bedside in detail, informed of the abnormal stress test, need for continued medical management outpatient cardiology follow up. Also informed of changing BP meds to AM. dc home today.
[2019-05-15 15:49] VITALS: BP 120/64; PULSE 59; TEMP 97.8
--- NOTE | 2019-05-15 17:06 | DS ---
Physical Exam: SUBJECTIVE: Patient seen and examined at the bedside. Stated that his chest pain improved. Denies fever, chills, sob, n/v/c/d, abd pain, weakness, numbness , tingling. Denies further episodes of chest pain. Stated slept well throughout the night and did not have any acute events. OBJECTIVE: Vital Signs Period Temp Pulse Resp BP Sys/Pozo Pulse Ox Last 24 Hr 97.8 F-98.7 F 53-86 18-20 120-179/60-82 98-98 PHYSICAL EXAM GENERAL: Pleasant, well-appearing male. NAD. AAOx3. HEENT: AT/NC. EOMI. MMM. NECK: Normal range of motion, supple without lymphadenopathy, JVD, or masses. LUNGS: CTA b/l, no wheezes, rhonchi, rales noted. Symmetric chest rise. HEART: RRR. Normal S1, S2. No murmurs noted. ABDOMEN: Soft, NT/ND. Normoactive bowel sounds in all 4Qs. No masses/ deformities noted. MUSCULOSKELETAL: Normal range of motion at all joints. No bony deformities or tenderness. No CVA tenderness. UPPER EXTREMITIES: 2+ pulses, warm, well-perfused. No cyanosis. No clubbing. No peripheral edema. LOWER EXTREMITIES: 2+ dorsalis pulses, warm, well-perfused. No calf tenderness. Trace pitting edema b/l. NEUROLOGICAL: Cranial nerves II-XII intact. Normal speech. 5/5 muscle strength u/l b/l extremities. Resting tremor noted. PSYCHIATRIC: Cooperative. Good eye contact. Appropriate mood and affect. SKIN: Warm, dry, normal turgor, no rashes or lesions noted, normal capillary refill. LABS Laboratory Results - last 24 hr 05/14/19 05/15/19 05/15/19 20:33 06:05 06:05 WBC 6.4 RBC 4.86 Hgb 11.5 L Hct 36.4 MCV 74.9 L MCH 23.7 L MCHC 31.6 L RDW 13.3 Plt Count 152 MPV 10.2 Sodium 142 Potassium 4.3 Chloride 110 H Carbon Dioxide 28 Anion Gap 4 L BUN 24.9 H Creatinine 0.9 Est GFR (CKD-EPI)AfAm 90.58 Est GFR (CKD-EPI)NonAf 78.15 Random Glucose 94 Hemoglobin A1c % Calcium 8.8 Phosphorus 3.1 Magnesium 2.5 H Troponin I < 0.02 Triglycerides Cholesterol Total LDL Cholesterol HDL Cholesterol 05/15/19 05/15/19 06:05 06:05 WBC RBC Hgb Hct MCV MCH MCHC RDW Plt Count MPV Sodium Potassium Chloride Carbon Dioxide Anion Gap BUN Creatinine Est GFR (CKD-EPI)AfAm Est GFR (CKD-EPI)NonAf Random Glucose Hemoglobin A1c % 4.4 Calcium Phosphorus Magnesium Troponin I Triglycerides 96 Cholesterol 128 Total LDL Cholesterol 80 HDL Cholesterol 31 L HOSPITAL COURSE: Dennis Hancock is an 84 year old male with a past medical history of Parkinson, HTN/HLD, CVA, non-obstructive heart disease (hx of 3 caths, no stents) admitted for chest pain that lasted for 10-15 seconds described as sharp and stabbing in nature with radiation tot he L arm and up the left side of the neck. Stated that his BP at home was elevated at 210/80. While admitted the patient had an EKG performed that showed sinus rhythm with a possible age indeterminate anterior infarct. Troponin levels obtained were negative. Patient's blood counts and electrolytes were within normal limits throughout the hospitalization. Vitals remained stable throughout hospitalization. The patient had an echocardiogram performed that showed normal left ventricular size and function with EF 55-60%, grade I diastolic dysfunction, mild to moderate aortic sclerosis, mild to moderate aortic regurgitation. Patient had a myocardial perfusion scan performed showing appropriate blood pressure response, no discomfort, and normal EKG. Nuclear results showed a small zone of inferobasal reversible defect suggesting mild intensity ischemia, normal left ventricular contraction with LV ejectrion fraction of 69% post Lexiscan and 68% at rest. Patient was seen by cardiology who recommended to continue the patient on aspirin, atorvastatin, amlodipine, atenolol, lisinopril. Patient was told to follow up with his primary care physician within one week of discharge. Patient was told to follow up with slip laster within one week of discharge. Patient was discharged in stable condition and voiced understanding of all instructions. Date of Admission:05/14/19 Date of Discharge: 05/15/19 Minutes to complete discharge: 35 Discharge Summary Problems reviewed: Yes Reason For Visit: CHEST PAIN Condition: Stable - Instructions Diet, Activity, Other Instructions: You were in the hospital for complaints of chest pain. You were monitored on the cardiac floor. You received an echocardiogram (ultrasound of the heart) and a stress test to assess the function of your heart. Your stress test showed a part of your heart muscle with decreased oxygen flow, however you were seen and evaluated by the slip laster and recommended. During the hospital stay, your symptoms improved. You are now stable to be discharged home. MEDICATIONS Please continue taking your home medications as prescribed. Take your blood pressure medications in the morning as follows: amlodipine 2.5mg in the morning atenolol 50mg in the morning lisinopril 20mg twice daily. Take your cholesterol medication lipitor (atorvastatin) in the evening Continue taking aspirin 81mg daily No changes have been made to your Home medication regimen. INSTRUCTIONS: Advise home BP monitoring daily till next doctor visit. Notify doctor if SBP (upper BP reading) persistently > 140 or DBP (lower BP reading) persistently > 95 noted. REFERRALS Please follow up with your primary care doctor within one week. Please follow up with your slip laster within one week. You will need regular outpatient work up for your stress test results. If you do not have a slip laster or wish to see a new slip laster, you may follow up with Dr. Romero. If you experience any worsening chest pain, shortness of breath, dizziness, lightheadedness, fever, chills, or general feelings of illness please proceed to your closest emergency room for further evaluation. Referrals: Collins Carrizales MD [Primary Care Provider] - 1 Week Abram Romero MD [Staff Physician] - 1 Week Disposition: HOME - Home Medications Comprehensive Discharge Medication List: Ambulatory Orders Carbidopa/Levodopa [Sinemet 25-100 mg Tablet] 1 each PO TID 08/22/15 Alprazolam [Xanax] 0.25 mg PO HS 05/14/19 Amantadine HCl [Amantadine] 100 mg PO BID 05/14/19 Amlodipine Besylate 2.5 mg PO DAILY 05/14/19 Aspirin [Ecotrin] 81 mg PO DAILY 05/14/19 Atorvastatin Ca [Lipitor] 40 mg PO HS 05/14/19 Lisinopril 20 mg PO BID 05/14/19 Omeprazole Magnesium [Prilosec Otc] 20 mg PO DAILY 05/14/19 Ropinirole HCl 0.5 mg PO BID 05/14/19 Tamsulosin HCl [Flomax] 0.4 mg PO HS 05/14/19 Atenolol [Tenormin] 50 mg PO DAILY #0 tablet 05/15/19 Problem List - Problems (1) HLD (hyperlipidemia) Code(s): E78.5 - HYPERLIPIDEMIA, UNSPECIFIED (2) HTN (hypertension) Code(s): I10 - ESSENTIAL (PRIMARY) HYPERTENSION (3) Parkinson disease Code(s): G20 - PARKINSON'S DISEASE (4) Chest pain Code(s): R07.9 - CHEST PAIN, UNSPECIFIED This patient is new to me today: Yes Date on this admission: 05/15/19 Emergency Visit: No Critical Care patient: No - Discharge Referral Referred to [facility] No
== END 2019-05-15 16:27 | disposition home or self-care (01) ==
LOC: JER 08:50 → JERBED 12:24 → J4W 15:15
PROVIDERS: ADMIT Hospitalist; ATTEND Hospitalist
PROC: 3E033GC Introduction of Other Therapeutic Substance into Peripheral Vein, Percutaneous Approach (ICD-10-PCS; principal; 2019-05-14)
PROC: 3E013GC Introduction of Other Therapeutic Substance into Subcutaneous Tissue, Percutaneous Approach (ICD-10-PCS; 2019-05-14)
DX: R07.89 Other chest pain (principal); I16.0 Hypertensive urgency; I10 Essential (primary) hypertension; E78.5 Hyperlipidemia, unspecified; G20 Parkinson's disease; N40.0 Benign prostatic hyperplasia without lower urinary tract symptoms; M54.5 Low back pain; G89.29 Other chronic pain; Z29.8 Encounter for other specified prophylactic measures; Z79.82 Long term (current) use of aspirin; Z88.0 Allergy status to penicillin; Z86.73 Personal history of transient ischemic attack (TIA), and cerebral infarction without residual deficits; Z87.828 Personal history of other (healed) physical injury and trauma
CPT/HCPCS: 36415; 71045-TC-FY; 78452-TC; 80048; 80053; 80061; 82550; 83036; 83721; 83735; 84100; 84484; 85025; 85027; 85610; 85730; 93005; 93010; 93017; 93306-TC; 96372; 96374; 97116-GP; 97161-GP; 99284-25; A9502; G0378; J2785

== ENCOUNTER 2020-07-09 13:12 | Inpatient (IN) | payer OTHER ==
[2020-07-09 13:17] VITALS: BMI 25.7
[2020-07-09 15:40] LABS: BASO % 0.3 % (0-2.0); EOS % 0.6 % (0-4.5); HEMATOCRIT 35.1 % (35.4-49); HEMOGLOBIN 11.1 GM/dL (11.7-16.9); LYMPH % 28.9 % (8-40); MCH 23.5 pg (25.7-33.7); MCHC 31.5 g/dl (32.0-35.9); MEAN CELL VOLUME 74.6 fl (80-96); MEAN PLT VOLUME 10.5 fl (7.5-11.1); MONO % 18.8 % (3.8-10.2); NEUT % 51.4 % (42.8-82.8); PLATELET COUNT 131 K/MM3 (134-434); WHITE BLOOD COUNT 5.6 K/mm3 (4.0-10.0)
[2020-07-09 15:47] LABS: INR 1.04 (0.83-1.09); PROTHROMBIN TIME (PATIENT) 12.8 SEC (9.7-13.0)
[2020-07-09 15:50] LABS: ACTIVATED PTT 34.6 SECONDS (25.2-36.5)
[2020-07-09 15:57] LABS: CHLORIDE 107 mmol/L (98-107); POTASSIUM 4.5 mmol/L (3.5-5.1); SODIUM 141 mmol/L (136-145)
[2020-07-09 15:59] LABS: ANION GAP 6 MMOL/L (8-16); CALCIUM 8.9 mg/dL (8.5-10.1); CO2 29 mmol/L (21-32)
[2020-07-09 16:00] LABS: ALBUMIN 3.4 g/dl (3.4-5.0); BLOOD UREA NITROGEN 33.3 mg/dL (7-18); GLUCOSE,RANDOM 105 mg/dL (74-106); MAGNESIUM 2.5 mg/dL (1.8-2.4)
[2020-07-09 16:03] LABS: CREATININE 1.4 mg/dL (0.55-1.3); SGOT/AST 22 U/L (15-37); SGPT/ALT 9 U/L (13-61)
[2020-07-09 16:04] LABS: BILIRUBIN,TOTAL 0.5 mg/dL (0.2-1); TOT PROT 6.6 g/dl (6.4-8.2)
[2020-07-09 16:06] LABS: ALK PHOS 106 U/L (45-117)
[2020-07-09 16:49] LABS: BILIRUBIN,DIRECT 0.1 mg/dL (0.0-0.2)
[2020-07-09] MEDS ORDERED: SODIUM CHLORIDE 0.9% 500 ML INFUS.BAG IV ONE (16:55)
[2020-07-09] MEDS ORDERED: ASPIRIN 81 MG CHEWABLE TABLETS PO ONE (17:19)
[2020-07-09] MEDS ORDERED: ASPIRIN 81 MG CHEWABLE TABLETS ONE (17:25)
[2020-07-09] MEDS ORDERED: SODIUM CHLORIDE 1,000 ML IV SCH (22:45)
[2020-07-09] MEDS ORDERED: SODIUM CHLORIDE 500 ML IV STA (22:51)
[2020-07-10] MEDS ORDERED: CARBIDOPA/LEVODOPA 25/100 TABLET (FP) ONE ×3 (06:37→22:34)
[2020-07-10] MEDS ORDERED: HEPARIN NA (PORCINE) 5,000 UNITS/ML 1ML VIAL ONE ×3 (06:38→22:35)
[2020-07-10] MEDS: CARBIDOPA/LEVODOPA 25/100 TABLET (FP) PO SCH ×3 (06:48→22:47)
[2020-07-10] MEDS: HEPARIN NA (PORCINE) 5,000 UNITS/ML 1ML VIAL SQ SCH ×3 (06:48→22:47)
[2020-07-10] MEDS: TAMSULOSIN HCL 0.4 MG CAP PO SCH (09:06)
[2020-07-10 09:24] LABS: EPI CELLS 5 /uL (0-25.1); HYALINE CASTS 1 /uL (0-3.1); URINE APPEARANCE CLEAR; URINE BACTERIA 38 /uL (0-1359); URINE BILIRUBIN NEGATIVE (NEGATIVE); URINE COLOR YELLOW; URINE GLUCOSE (UA) NEGATIVE (NEGATIVE); URINE KETONE NEGATIVE (NEGATIVE); URINE LEUK ESTERASE NEGATIVE (NEGATIVE); URINE NITRITE NEGATIVE (NEGATIVE); URINE PROTEIN NEGATIVE (NEGATIVE); URINE RBC 269 /uL (0-23.9); URINE UROBILINOGEN 0.2 mg/dL (0.2-1.0); URINE WBC 22 /uL (0-25.8)
[2020-07-10] MEDS: ASCORBIC ACID 500 MG TABLET (FP) PO SCH ×2 (10:00→22:47)
[2020-07-10] MEDS: AMANTADINE HCL 100 MG TABLET PO SCH ×2 (10:00→23:34)
[2020-07-10] MEDS: ASPIRIN COATED 81 MG TABLET.EC PO SCH (10:00)
[2020-07-10] MEDS: ZINC SULFATE 220 MG CAPSULE (FP) PO SCH (10:00)
[2020-07-10] MEDS ORDERED: CHOLECALCIFEROL (VIT D3) 1,000 UNIT (25 MCG) TABLET PO ONE (10:00)
[2020-07-10] MEDS ORDERED: CHOLECALCIFEROL (VIT D3) 1,000 UNIT (25 MCG) TABLET ONE (10:28)
[2020-07-10] MEDS ORDERED: ASCORBIC ACID 500 MG TABLET (FP) ONE ×2 (10:28→22:34)
[2020-07-10] MEDS ORDERED: ASPIRIN COATED 81 MG TABLET.EC ONE (10:28)
[2020-07-10] MEDS ORDERED: ZINC SULFATE 220 MG CAPSULE (FP) ONE (10:28)
[2020-07-10 11:23] LABS: BASO % 0.3 % (0-2.0); EOS % 2.7 % (0-4.5); HEMATOCRIT 34.5 % (35.4-49); HEMOGLOBIN 10.9 GM/dL (11.7-16.9); LYMPH % 32.2 % (8-40); MCH 23.6 pg (25.7-33.7); MCHC 31.6 g/dl (32.0-35.9); MEAN CELL VOLUME 74.8 fl (80-96); MEAN PLT VOLUME 10.6 fl (7.5-11.1); MONO % 12.2 % (3.8-10.2); NEUT % 52.6 % (42.8-82.8); PLATELET COUNT 125 K/MM3 (134-434); RBC 4.61 M/mm3 (4.00-5.60); RDW 14.1 % (11.9-15.9); WHITE BLOOD COUNT 4.9 K/mm3 (4.0-10.0)
[2020-07-10 11:40] LABS: CHLORIDE 110 mmol/L (98-107); POTASSIUM 3.9 mmol/L (3.5-5.1); SODIUM 142 mmol/L (136-145)
[2020-07-10 11:43] LABS: ANION GAP 4 MMOL/L (8-16); BLOOD UREA NITROGEN 19.5 mg/dL (7-18); CO2 28 mmol/L (21-32); GLUCOSE,RANDOM 80 mg/dL (74-106); INR 1.06 (0.83-1.09); PROTHROMBIN TIME (PATIENT) 12.8 SEC (9.7-13.0)
[2020-07-10 11:44] LABS: IRON SERUM 33 ug/dL (50-175)
[2020-07-10 11:45] LABS: TOTAL IRON BINDING CAPACITY 198 ug/dL (250-450); TRIGLYCERIDES 151 mg/dL (0-150)
[2020-07-10 11:46] LABS: ACTIVATED PTT 21.8 SECONDS (25.2-36.5); CHOLESTEROL 134 mg/dL (50-200); CREATININE 0.9 mg/dL (0.55-1.3); SGOT/AST 24 U/L (15-37); SGPT/ALT < 6 U/L (13-61)
[2020-07-10 11:47] LABS: ALK PHOS 98 U/L (45-117); BILIRUBIN,TOTAL 0.5 mg/dL (0.2-1); HDL CHOLESTEROL 28 mg/dL (40-60); LDL CHOLESTEROL (ONLY SJRH) 86 mg/dL (5-100); TOT PROT 6.1 g/dl (6.4-8.2)
[2020-07-10] MEDS ORDERED: ATENOLOL 50 MG TABLET (FP) PO SCH (14:30)
[2020-07-10] MEDS ORDERED: FERRIC CARBOXYMALTOSE 750 MG in SODIUM CHLORIDE 250 ML IVPB ONE (15:06)
[2020-07-10] MEDS: ATENOLOL 50 MG TABLET (FP) PO SCH (15:06)
[2020-07-10] MEDS: DEXTROSE 5%-0.45% SALINE 1,000 ML IV SCH (15:06)
[2020-07-10] MEDS ORDERED: ATENOLOL 25 MG TABLET (FP) ONE (16:03)
[2020-07-10] MEDS: FERROUS SO4 325 MG TABLET (FP) PO SCH (17:49)
[2020-07-10] MEDS ORDERED: ATORVASTATIN CA 40 MG TABLET (FP) ONE (22:34)
[2020-07-10] MEDS ORDERED: LISINOPRIL 20 MG TABLET ONE (22:34)
[2020-07-10] MEDS ORDERED: PT OWN MED DRAWER 7, Y5N ONE (22:35)
[2020-07-10] MEDS: LISINOPRIL 20 MG TABLET PO SCH (22:47)
[2020-07-10] MEDS: ATORVASTATIN CA 40 MG TABLET (FP) PO SCH (22:47)
[2020-07-11] MEDS ORDERED: CARBIDOPA/LEVODOPA 25/100 TABLET (FP) ONE ×2 (06:09→15:27)
[2020-07-11] MEDS ORDERED: HEPARIN NA (PORCINE) 5,000 UNITS/ML 1ML VIAL ONE ×2 (06:09→15:27)
[2020-07-11] MEDS: HEPARIN NA (PORCINE) 5,000 UNITS/ML 1ML VIAL SQ SCH ×3 (06:20→23:39)
[2020-07-11] MEDS: CARBIDOPA/LEVODOPA 25/100 TABLET (FP) PO SCH ×3 (06:20→23:39)
[2020-07-11 08:09] LABS: BASO % 0.4 % (0-2.0); EOS % 3.5 % (0-4.5); HEMOGLOBIN 11.1 GM/dL (11.7-16.9); LYMPH % 33.1 % (8-40); MCH 23.5 pg (25.7-33.7); MCHC 31.7 g/dl (32.0-35.9); MEAN CELL VOLUME 74.1 fl (80-96); MEAN PLT VOLUME 10.5 fl (7.5-11.1); MONO % 11.6 % (3.8-10.2); NEUT % 51.4 % (42.8-82.8); PLATELET COUNT 131 K/MM3 (134-434); RBC 4.72 M/mm3 (4.00-5.60); WHITE BLOOD COUNT 4.7 K/mm3 (4.0-10.0)
[2020-07-11 08:27] LABS: POTASSIUM 4.2 mmol/L (3.5-5.1)
[2020-07-11 08:29] LABS: BLOOD UREA NITROGEN 16.2 mg/dL (7-18); CALCIUM 8.2 mg/dL (8.5-10.1); MAGNESIUM 2.1 mg/dL (1.8-2.4)
[2020-07-11 08:33] LABS: BILIRUBIN,TOTAL 0.8 mg/dL (0.2-1); CREATININE 0.7 mg/dL (0.55-1.3); PHOSPHOROUS 2.4 mg/dL (2.5-4.9); TOT PROT 6.1 g/dl (6.4-8.2)
[2020-07-11] MEDS: TAMSULOSIN HCL 0.4 MG CAP PO SCH (08:51)
[2020-07-11] MEDS: FERROUS SO4 325 MG TABLET (FP) PO SCH ×2 (08:51→18:32)
[2020-07-11] MEDS ORDERED: ASCORBIC ACID 500 MG TABLET (FP) ONE (08:56)
[2020-07-11] MEDS ORDERED: ATENOLOL 25 MG TABLET (FP) ONE (08:56)
[2020-07-11] MEDS ORDERED: ASPIRIN COATED 81 MG TABLET.EC ONE (08:56)
[2020-07-11] MEDS ORDERED: TAMSULOSIN HCL 0.4 MG CAP ONE (08:57)
[2020-07-11] MEDS ORDERED: FERROUS SO4 325 MG TABLET (FP) ONE (08:57)
[2020-07-11] MEDS ORDERED: ZINC SULFATE 220 MG CAPSULE (FP) ONE (08:57)
[2020-07-11] MEDS ORDERED: LISINOPRIL 20 MG TABLET ONE (08:57)
[2020-07-11] MEDS ORDERED: PT OWN MED DRAWER 7, Y5N ONE (08:57)
[2020-07-11] MEDS ORDERED: NAPH,MB-DB/K PH,MBDB POWDER PACKET PO ONE (08:59)
[2020-07-11] MEDS: LISINOPRIL 20 MG TABLET PO SCH ×2 (10:12→23:39)
[2020-07-11] MEDS: ASPIRIN COATED 81 MG TABLET.EC PO SCH (10:12)
[2020-07-11] MEDS: ZINC SULFATE 220 MG CAPSULE (FP) PO SCH (10:12)
[2020-07-11] MEDS: AMANTADINE HCL 100 MG TABLET PO SCH (10:13)
[2020-07-11] MEDS: ASCORBIC ACID 500 MG TABLET (FP) PO SCH ×2 (10:13→23:39)
[2020-07-11] MEDS: ATENOLOL 50 MG TABLET (FP) PO SCH (10:13)
[2020-07-11] MEDS: DEXTROSE 5%-0.45% SALINE 1,000 ML IV SCH (15:34)
[2020-07-11] MEDS: ATORVASTATIN CA 40 MG TABLET (FP) PO SCH (23:39)
[2020-07-12] MEDS: AMANTADINE HCL 100 MG TABLET PO SCH ×3 (04:00→21:56)
[2020-07-12] MEDS: CARBIDOPA/LEVODOPA 25/100 TABLET (FP) PO SCH ×3 (05:27→21:54)
[2020-07-12] MEDS: HEPARIN NA (PORCINE) 5,000 UNITS/ML 1ML VIAL SQ SCH ×3 (05:27→21:54)
[2020-07-12 07:17] LABS: POTASSIUM 3.5 mmol/L (3.5-5.1)
[2020-07-12 07:25] LABS: ALBUMIN 3.2 g/dl (3.4-5.0); CALCIUM 8.8 mg/dL (8.5-10.1)
[2020-07-12 07:27] LABS: BILIRUBIN,TOTAL 0.6 mg/dL (0.2-1); TOT PROT 6.2 g/dl (6.4-8.2)
[2020-07-12 07:30] LABS: CREATININE 0.8 mg/dL (0.55-1.3); PHOSPHOROUS 2.2 mg/dL (2.5-4.9)
[2020-07-12] MEDS ORDERED: POTASSIUM CHLORIDE TABS 20 MEQ TABLET.ER (FP) PO ONE (07:59)
[2020-07-12 09:32] LABS: BASO % 0.3 % (0-2.0); EOS % 2.3 % (0-4.5); HEMATOCRIT 35.4 % (35.4-49); HEMOGLOBIN 11.3 GM/dL (11.7-16.9); LYMPH % 22.8 % (8-40); MCH 23.6 pg (25.7-33.7); MEAN CELL VOLUME 73.8 fl (80-96); MEAN PLT VOLUME 11.4 fl (7.5-11.1); MONO % 12.3 % (3.8-10.2); NEUT % 62.3 % (42.8-82.8); PLATELET COUNT 139 K/MM3 (134-434); RBC 4.79 M/mm3 (4.00-5.60); RDW 13.9 % (11.9-15.9); WHITE BLOOD COUNT 4.9 K/mm3 (4.0-10.0)
[2020-07-12] MEDS ORDERED: PT OWN MED DRAWER 7, Y5N ONE ×2 (10:35→21:55)
[2020-07-12] MEDS: ZINC SULFATE 220 MG CAPSULE (FP) PO SCH (10:41)
[2020-07-12] MEDS: ASCORBIC ACID 500 MG TABLET (FP) PO SCH ×2 (10:41→21:54)
[2020-07-12] MEDS: FERROUS SO4 325 MG TABLET (FP) PO SCH ×2 (10:42→17:14)
[2020-07-12] MEDS: TAMSULOSIN HCL 0.4 MG CAP PO SCH (10:42)
[2020-07-12] MEDS: LISINOPRIL 20 MG TABLET PO SCH ×2 (10:42→21:54)
[2020-07-12] MEDS: ATENOLOL 50 MG TABLET (FP) PO SCH (10:42)
[2020-07-12] MEDS: ASPIRIN COATED 81 MG TABLET.EC PO SCH (10:42)
[2020-07-12] MEDS: DEXTROSE 5%-0.45% SALINE 1,000 ML IV SCH (17:14)
[2020-07-12] MEDS: ATORVASTATIN CA 40 MG TABLET (FP) PO SCH (21:54)
[2020-07-13] MEDS: HEPARIN NA (PORCINE) 5,000 UNITS/ML 1ML VIAL SQ SCH ×2 (06:36→08:00)
[2020-07-13] MEDS: CARBIDOPA/LEVODOPA 25/100 TABLET (FP) PO SCH ×3 (06:36→22:02)
[2020-07-13 07:25] LABS: BASO % 0.6 % (0-2.0); EOS % 1.8 % (0-4.5); HEMATOCRIT 34.2 % (35.4-49); LYMPH % 28.3 % (8-40); MCH 23.7 pg (25.7-33.7); MCHC 32.1 g/dl (32.0-35.9); MEAN CELL VOLUME 73.6 fl (80-96); MEAN PLT VOLUME 10.3 fl (7.5-11.1); MONO % 15.8 % (3.8-10.2); NEUT % 53.5 % (42.8-82.8); PLATELET COUNT 109 K/MM3 (134-434); RBC 4.64 M/mm3 (4.00-5.60); RDW 13.8 % (11.9-15.9); WHITE BLOOD COUNT 4.2 K/mm3 (4.0-10.0)
[2020-07-13 07:49] LABS: POTASSIUM 4.3 mmol/L (3.5-5.1)
[2020-07-13 08:00] LABS: ALBUMIN 3.1 g/dl (3.4-5.0); BILIRUBIN,TOTAL 0.8 mg/dL (0.2-1); BLOOD UREA NITROGEN 12.5 mg/dL (7-18)
[2020-07-13] MEDS ORDERED: ACETAMINOPHEN 1000 MG/100 ML VIAL (NON FORMULARY) IVPB PRN (08:04)
[2020-07-13 08:05] LABS: CREATININE 0.9 mg/dL (0.55-1.3)
[2020-07-13] MEDS: FERROUS SO4 325 MG TABLET (FP) PO SCH ×2 (08:39→16:31)
[2020-07-13] MEDS: ASPIRIN COATED 81 MG TABLET.EC PO SCH ×2 (08:40→09:05)
[2020-07-13] MEDS: TAMSULOSIN HCL 0.4 MG CAP PO SCH ×2 (08:40→22:02)
[2020-07-13] MEDS: LISINOPRIL 20 MG TABLET PO SCH ×2 (09:05→22:02)
[2020-07-13] MEDS: ZINC SULFATE 220 MG CAPSULE (FP) PO SCH (09:05)
[2020-07-13] MEDS: ATENOLOL 50 MG TABLET (FP) PO SCH (09:05)
[2020-07-13] MEDS: ASCORBIC ACID 500 MG TABLET (FP) PO SCH ×2 (09:05→22:02)
[2020-07-13] MEDS ORDERED: PT OWN MED DRAWER 7, Y5N ONE ×3 (09:07→22:01)
[2020-07-13] MEDS: AMANTADINE HCL 100 MG TABLET PO SCH ×2 (09:08→22:02)
[2020-07-13] MEDS: DEXTROSE 5%-0.45% SALINE 1,000 ML IV SCH (14:30)
[2020-07-13] MEDS: ATORVASTATIN CA 40 MG TABLET (FP) PO SCH (22:02)
[2020-07-14] MEDS: CARBIDOPA/LEVODOPA 25/100 TABLET (FP) PO SCH ×3 (06:32→22:21)
[2020-07-14 07:21] LABS: BASO % 0.2 % (0-2.0); EOS % 2.6 % (0-4.5); HEMOGLOBIN 9.8 GM/dL (11.7-16.9); LYMPH % 25.5 % (8-40); MCH 23.5 pg (25.7-33.7); MCHC 31.7 g/dl (32.0-35.9); MEAN CELL VOLUME 74.1 fl (80-96); MEAN PLT VOLUME 10.2 fl (7.5-11.1); MONO % 13.6 % (3.8-10.2); NEUT % 58.1 % (42.8-82.8); PLATELET COUNT 117 K/MM3 (134-434); RBC 4.18 M/mm3 (4.00-5.60); RDW 13.9 % (11.9-15.9); WHITE BLOOD COUNT 4.5 K/mm3 (4.0-10.0)
[2020-07-14 07:32] LABS: POTASSIUM 3.6 mmol/L (3.5-5.1)
[2020-07-14 07:43] LABS: CALCIUM 8.2 mg/dL (8.5-10.1)
[2020-07-14 07:44] LABS: ALBUMIN 2.9 g/dl (3.4-5.0); BLOOD UREA NITROGEN 7.2 mg/dL (7-18); MAGNESIUM 1.8 mg/dL (1.8-2.4)
[2020-07-14 07:47] LABS: CREATININE 0.8 mg/dL (0.55-1.3)
[2020-07-14 07:48] LABS: BILIRUBIN,TOTAL 0.9 mg/dL (0.2-1)
[2020-07-14 07:52] LABS: TOT PROT 5.5 g/dl (6.4-8.2)
[2020-07-14] MEDS ORDERED: PT OWN MED DRAWER 7, Y5N ONE ×2 (10:20→22:15)
[2020-07-14] MEDS: FERROUS SO4 325 MG TABLET (FP) PO SCH ×2 (10:21→16:49)
[2020-07-14] MEDS: LISINOPRIL 20 MG TABLET PO SCH ×2 (10:22→22:21)
[2020-07-14] MEDS: ZINC SULFATE 220 MG CAPSULE (FP) PO SCH (10:22)
[2020-07-14] MEDS: ASCORBIC ACID 500 MG TABLET (FP) PO SCH ×2 (10:22→22:21)
[2020-07-14] MEDS: AMANTADINE HCL 100 MG TABLET PO SCH ×2 (10:22→22:21)
[2020-07-14] MEDS: ATENOLOL 50 MG TABLET (FP) PO SCH (10:22)
[2020-07-14] MEDS: TAMSULOSIN HCL 0.4 MG CAP PO SCH ×2 (10:22→22:21)
[2020-07-14] MEDS: DEXTROSE 5%-0.45% SALINE 1,000 ML IV SCH (14:45)
[2020-07-14] MEDS: ATORVASTATIN CA 40 MG TABLET (FP) PO SCH (22:21)
[2020-07-15] MEDS: CARBIDOPA/LEVODOPA 25/100 TABLET (FP) PO SCH ×3 (06:44→21:41)
[2020-07-15] MEDS: DEXTROSE 5%-0.45% SALINE 1,000 ML IV SCH ×2 (06:45→17:51)
[2020-07-15 08:12] LABS: POTASSIUM 3.5 mmol/L (3.5-5.1)
[2020-07-15 08:17] LABS: CALCIUM 8.1 mg/dL (8.5-10.1)
[2020-07-15 08:18] LABS: BLOOD UREA NITROGEN 6.2 mg/dL (7-18)
[2020-07-15 08:20] LABS: ALBUMIN 2.8 g/dl (3.4-5.0); MAGNESIUM 1.8 mg/dL (1.8-2.4)
[2020-07-15 08:23] LABS: BASO % 0.2 % (0-2.0); CREATININE 0.7 mg/dL (0.55-1.3); EOS % 3.4 % (0-4.5); HEMOGLOBIN 10.2 GM/dL (11.7-16.9); LYMPH % 19.6 % (8-40); MCH 23.6 pg (25.7-33.7); MCHC 31.8 g/dl (32.0-35.9); MEAN CELL VOLUME 74.4 fl (80-96); MONO % 11.3 % (3.8-10.2); NEUT % 65.5 % (42.8-82.8); PLATELET COUNT 119 K/MM3 (134-434); RDW 13.9 % (11.9-15.9); WHITE BLOOD COUNT 4.9 K/mm3 (4.0-10.0)
[2020-07-15 08:24] LABS: TOT PROT 5.8 g/dl (6.4-8.2)
[2020-07-15] MEDS ORDERED: PT OWN MED DRAWER 7, Y5N ONE (08:27)
[2020-07-15] MEDS ORDERED: POTASSIUM CHLORIDE TABS 20 MEQ TABLET.ER (FP) PO ONE (08:35)
[2020-07-15] MEDS ORDERED: MAGNESIUM OXIDE 400 MG TABLET (FP) PO ONE (08:36)
[2020-07-15] MEDS: ZINC SULFATE 220 MG CAPSULE (FP) PO SCH (09:16)
[2020-07-15] MEDS: ATENOLOL 50 MG TABLET (FP) PO SCH (09:16)
[2020-07-15] MEDS: LISINOPRIL 20 MG TABLET PO SCH ×2 (09:16→21:41)
[2020-07-15] MEDS: ASCORBIC ACID 500 MG TABLET (FP) PO SCH ×2 (09:16→21:41)
[2020-07-15] MEDS: FERROUS SO4 325 MG TABLET (FP) PO SCH ×2 (09:16→17:52)
[2020-07-15] MEDS: TAMSULOSIN HCL 0.4 MG CAP PO SCH ×2 (09:16→21:41)
[2020-07-15] MEDS: AMANTADINE HCL 100 MG TABLET PO SCH ×2 (09:43→21:42)
[2020-07-15] MEDS: AMINO ACIDS/PROTEIN HYDROLYS 30 ML LIQUID.PKT PO SCH (17:52)
[2020-07-15] MEDS: ATORVASTATIN CA 40 MG TABLET (FP) PO SCH (21:41)
[2020-07-16] MEDS: DEXTROSE 5%-0.45% SALINE 1,000 ML IV SCH ×3 (03:15→14:30)
[2020-07-16] MEDS: CARBIDOPA/LEVODOPA 25/100 TABLET (FP) PO SCH ×3 (06:51→22:12)
[2020-07-16 07:57] LABS: BASO % 0.2 % (0-2.0); EOS % 2.1 % (0-4.5); HEMOGLOBIN 10.4 GM/dL (11.7-16.9); LYMPH % 20.1 % (8-40); MCH 23.6 pg (25.7-33.7); MCHC 31.6 g/dl (32.0-35.9); MEAN CELL VOLUME 74.6 fl (80-96); MEAN PLT VOLUME 10.2 fl (7.5-11.1); MONO % 11.8 % (3.8-10.2); NEUT % 65.8 % (42.8-82.8); PLATELET COUNT 133 K/MM3 (134-434); RBC 4.43 M/mm3 (4.00-5.60); RDW 13.9 % (11.9-15.9); WHITE BLOOD COUNT 6.8 K/mm3 (4.0-10.0)
[2020-07-16 08:46] LABS: CALCIUM 8.2 mg/dL (8.5-10.1)
[2020-07-16 08:47] LABS: BLOOD UREA NITROGEN 8.6 mg/dL (7-18); MAGNESIUM 2.1 mg/dL (1.8-2.4)
[2020-07-16 08:50] LABS: CREATININE 0.8 mg/dL (0.55-1.3)
[2020-07-16] MEDS: FERROUS SO4 325 MG TABLET (FP) PO SCH ×2 (08:50→16:40)
[2020-07-16] MEDS: AMINO ACIDS/PROTEIN HYDROLYS 30 ML LIQUID.PKT PO SCH ×2 (08:50→16:40)
[2020-07-16 08:51] LABS: TOT PROT 6.1 g/dl (6.4-8.2)
[2020-07-16] MEDS: TAMSULOSIN HCL 0.4 MG CAP PO SCH ×2 (09:04→22:12)
[2020-07-16] MEDS: ZINC SULFATE 220 MG CAPSULE (FP) PO SCH (09:05)
[2020-07-16] MEDS: ATENOLOL 50 MG TABLET (FP) PO SCH (09:05)
[2020-07-16] MEDS: ASPIRIN COATED 81 MG TABLET.EC PO SCH (09:05)
[2020-07-16] MEDS: LISINOPRIL 20 MG TABLET PO SCH ×2 (09:05→22:12)
[2020-07-16] MEDS: ASCORBIC ACID 500 MG TABLET (FP) PO SCH ×2 (09:05→22:12)
[2020-07-16] MEDS: AMANTADINE HCL 100 MG TABLET PO SCH ×2 (09:06→22:12)
[2020-07-16] MEDS ORDERED: PT OWN MED DRAWER 7, Y5N ONE (22:11)
[2020-07-16] MEDS: ATORVASTATIN CA 40 MG TABLET (FP) PO SCH (22:12)
[2020-07-17] MEDS: CARBIDOPA/LEVODOPA 25/100 TABLET (FP) PO SCH ×3 (05:53→22:32)
[2020-07-17 07:25] LABS: BASO % 0.4 % (0-2.0); EOS % 2.2 % (0-4.5); HEMOGLOBIN 9.8 GM/dL (11.7-16.9); LYMPH % 20.7 % (8-40); MCH 23.6 pg (25.7-33.7); MCHC 31.7 g/dl (32.0-35.9); MEAN CELL VOLUME 74.6 fl (80-96); MEAN PLT VOLUME 10.5 fl (7.5-11.1); MONO % 14.5 % (3.8-10.2); NEUT % 62.2 % (42.8-82.8); PLATELET COUNT 141 K/MM3 (134-434); RBC 4.16 M/mm3 (4.00-5.60); WHITE BLOOD COUNT 6.2 K/mm3 (4.0-10.0)
[2020-07-17 07:53] LABS: CALCIUM 7.8 mg/dL (8.5-10.1)
[2020-07-17 07:54] LABS: ALBUMIN 2.7 g/dl (3.4-5.0); BLOOD UREA NITROGEN 12.6 mg/dL (7-18); MAGNESIUM 2.1 mg/dL (1.8-2.4)
[2020-07-17 07:56] LABS: CREATININE 0.7 mg/dL (0.55-1.3)
[2020-07-17 07:57] LABS: BILIRUBIN,TOTAL 0.8 mg/dL (0.2-1)
[2020-07-17 07:58] LABS: TOT PROT 5.7 g/dl (6.4-8.2)
[2020-07-17] MEDS ORDERED: PT OWN MED DRAWER 7, Y5N ONE ×2 (08:45→22:31)
[2020-07-17] MEDS: FERROUS SO4 325 MG TABLET (FP) PO SCH ×2 (08:56→17:53)
[2020-07-17] MEDS: TAMSULOSIN HCL 0.4 MG CAP PO SCH ×2 (08:56→22:32)
[2020-07-17] MEDS: AMINO ACIDS/PROTEIN HYDROLYS 30 ML LIQUID.PKT PO SCH ×2 (08:56→17:53)
[2020-07-17] MEDS: LISINOPRIL 20 MG TABLET PO SCH ×2 (09:00→22:32)
[2020-07-17] MEDS: ASCORBIC ACID 500 MG TABLET (FP) PO SCH ×2 (09:01→22:32)
[2020-07-17] MEDS: ZINC SULFATE 220 MG CAPSULE (FP) PO SCH (09:01)
[2020-07-17] MEDS: ATENOLOL 50 MG TABLET (FP) PO SCH (09:01)
[2020-07-17] MEDS: AMANTADINE HCL 100 MG TABLET PO SCH ×2 (09:06→22:32)
[2020-07-17] MEDS: DEXTROSE 5%-0.45% SALINE 1,000 ML IV SCH ×2 (12:28→14:23)
[2020-07-17] MEDS: APIXABAN 5 MG TABLET PO SCH ×2 (13:29→22:32)
[2020-07-17] MEDS ORDERED: ACETAMINOPHEN 325 MG TABLET (FP) PO PRN (14:13)
[2020-07-17] MEDS: ATORVASTATIN CA 40 MG TABLET (FP) PO SCH (22:32)
[2020-07-17] MEDS ORDERED: POLYETHYLENE GLYCOL 3350 119 GM BTL PO ONE (23:03)
[2020-07-17] MEDS ORDERED: GLYCERIN 1 RECTAL SUPPOSITORY, ADULT PR PRN (23:33)
[2020-07-18] MEDS: CARBIDOPA/LEVODOPA 25/100 TABLET (FP) PO SCH ×3 (05:55→21:50)
[2020-07-18 08:22] LABS: POTASSIUM 4.1 mmol/L (3.5-5.1)
[2020-07-18] MEDS: AMINO ACIDS/PROTEIN HYDROLYS 30 ML LIQUID.PKT PO SCH ×2 (08:22→17:08)
[2020-07-18] MEDS: TAMSULOSIN HCL 0.4 MG CAP PO SCH ×2 (08:22→21:50)
[2020-07-18] MEDS: FERROUS SO4 325 MG TABLET (FP) PO SCH ×2 (08:22→17:08)
[2020-07-18 08:24] LABS: CALCIUM 7.9 mg/dL (8.5-10.1)
[2020-07-18 08:25] LABS: ALBUMIN 2.7 g/dl (3.4-5.0); BLOOD UREA NITROGEN 12.8 mg/dL (7-18); MAGNESIUM 2.2 mg/dL (1.8-2.4)
[2020-07-18 08:28] LABS: CREATININE 0.7 mg/dL (0.55-1.3)
[2020-07-18 08:29] LABS: BILIRUBIN,TOTAL 0.7 mg/dL (0.2-1); TOT PROT 5.8 g/dl (6.4-8.2)
[2020-07-18 08:34] LABS: BASO % 0.2 % (0-2.0); EOS % 2.3 % (0-4.5); HEMATOCRIT 30.5 % (35.4-49); HEMOGLOBIN 9.8 GM/dL (11.7-16.9); LYMPH % 20.6 % (8-40); MCH 23.8 pg (25.7-33.7); MEAN CELL VOLUME 74.6 fl (80-96); MEAN PLT VOLUME 10.5 fl (7.5-11.1); MONO % 17.4 % (3.8-10.2); NEUT % 59.5 % (42.8-82.8); PLATELET COUNT 170 K/MM3 (134-434); RBC 4.09 M/mm3 (4.00-5.60); RDW 14.2 % (11.9-15.9); WHITE BLOOD COUNT 6.1 K/mm3 (4.0-10.0)
[2020-07-18] MEDS ORDERED: PT OWN MED DRAWER 7, Y5N ONE (10:11)
[2020-07-18 10:13] LABS: ANISOCYTOSIS 3+; MACROCYTOSIS 0; PLATELET ESTIMATE NORMAL; TARGET CELLS 1+
[2020-07-18] MEDS: ATENOLOL 50 MG TABLET (FP) PO SCH (10:22)
[2020-07-18] MEDS: LISINOPRIL 20 MG TABLET PO SCH ×2 (10:22→21:50)
[2020-07-18] MEDS: ASCORBIC ACID 500 MG TABLET (FP) PO SCH ×2 (10:22→21:50)
[2020-07-18] MEDS: APIXABAN 5 MG TABLET PO SCH ×2 (10:22→21:50)
[2020-07-18] MEDS: ZINC SULFATE 220 MG CAPSULE (FP) PO SCH (10:22)
[2020-07-18] MEDS: AMANTADINE HCL 100 MG TABLET PO SCH ×2 (10:23→21:50)
[2020-07-18] MEDS: DEXTROSE 5%-0.45% SALINE 1,000 ML IV SCH (15:06)
[2020-07-18] MEDS: ATORVASTATIN CA 40 MG TABLET (FP) PO SCH (21:50)
[2020-07-19] MEDS: CARBIDOPA/LEVODOPA 25/100 TABLET (FP) PO SCH ×2 (06:20→13:04)
[2020-07-19 07:44] LABS: BASO % 0.1 % (0-2.0); EOS % 0.1 % (0-4.5); HEMATOCRIT 30.7 % (35.4-49); HEMOGLOBIN 9.7 GM/dL (11.7-16.9); LYMPH % 11.9 % (8-40); MCH 23.6 pg (25.7-33.7); MCHC 31.7 g/dl (32.0-35.9); MEAN CELL VOLUME 74.6 fl (80-96); MEAN PLT VOLUME 10.7 fl (7.5-11.1); MONO % 16.4 % (3.8-10.2); NEUT % 71.5 % (42.8-82.8); PLATELET COUNT 184 K/MM3 (134-434); RBC 4.11 M/mm3 (4.00-5.60); WHITE BLOOD COUNT 6.5 K/mm3 (4.0-10.0)
[2020-07-19 08:04] LABS: ALBUMIN 2.7 g/dl (3.4-5.0); CALCIUM 8.1 mg/dL (8.5-10.1)
[2020-07-19 08:05] LABS: BLOOD UREA NITROGEN 17.3 mg/dL (7-18); MAGNESIUM 2.3 mg/dL (1.8-2.4)
[2020-07-19 08:08] LABS: CREATININE 0.7 mg/dL (0.55-1.3)
[2020-07-19 08:09] LABS: BILIRUBIN,TOTAL 0.6 mg/dL (0.2-1)
[2020-07-19] MEDS ORDERED: ATENOLOL 50 MG TABLET (FP) PO SCH (08:45)
[2020-07-19] MEDS: ZINC SULFATE 220 MG CAPSULE (FP) PO SCH (09:12)
[2020-07-19] MEDS: LISINOPRIL 20 MG TABLET PO SCH (09:12)
[2020-07-19] MEDS: APIXABAN 5 MG TABLET PO SCH (09:12)
[2020-07-19] MEDS: ASCORBIC ACID 500 MG TABLET (FP) PO SCH (09:12)
[2020-07-19] MEDS: FERROUS SO4 325 MG TABLET (FP) PO SCH (09:14)
[2020-07-19] MEDS: AMINO ACIDS/PROTEIN HYDROLYS 30 ML LIQUID.PKT PO SCH (09:14)
[2020-07-19] MEDS: TAMSULOSIN HCL 0.4 MG CAP PO SCH (09:14)
[2020-07-19] MEDS ORDERED: PT OWN MED DRAWER 7, Y5N ONE (09:15)
[2020-07-19] MEDS: AMANTADINE HCL 100 MG TABLET PO SCH (09:16)
[2020-07-19 11:55] LABS: ANISOCYTOSIS 1+; MACROCYTOSIS 0; OVALOCYTE 1+; PLATELET ESTIMATE NORMAL
[2020-07-19 14:46] VITALS: BP 121/62; PULSE 68; TEMP 97.9
== END 2020-07-19 14:35 | disposition home or self-care (01) | DRG 177 ==
LOC: JER 13:12 → JERBED 21:09 → J4S 07-11 23:24
PROVIDERS: ADMIT Hospitalist; ATTEND Nurse Practitioner Family
DX: U07.1 COVID-19 (principal); G93.41 Metabolic encephalopathy; I69.354 Hemiplegia and hemiparesis following cerebral infarction affecting left non-dominant side; N17.9 Acute kidney failure, unspecified; G20 Parkinson's disease; E78.5 Hyperlipidemia, unspecified; I10 Essential (primary) hypertension; M54.5 Low back pain; N40.0 Benign prostatic hyperplasia without lower urinary tract symptoms; D50.1 Sideropenic dysphagia; D50.9 Iron deficiency anemia, unspecified; I25.10 Atherosclerotic heart disease of native coronary artery without angina pectoris; R13.10 Dysphagia, unspecified; R31.0 Gross hematuria; R00.2 Palpitations; R53.1 Weakness; R55 Syncope and collapse
CPT/HCPCS: 36415; 70450-TC; 70551-TC; 71045-TC-FY; 76775-TC; 80053; 80061; 81003; 82248; 82550; 82553; 82565; 82607; 82728; 82746; 82962; 83036; 83540; 83550; 83615; 83721; 83735; 84100; 84300; 84443; 84484; 85025; 85379; 85610; 85730; 86140; 86850; 86900; 86901; 87040; 87086; 87426; 87804; 93005; 93010; 93880-TC; 97116-GP; 97161-GP; 99285-25; C9803; J0131; J1439; J1644; U0003

== ENCOUNTER 2021-02-09 00:05 | Inpatient (IN) | payer OTHER ==
[2021-02-09] MEDS ORDERED: ACETAMINOPHEN 1000 MG/100 ML VIAL (NON FORMULARY) IVPB ONE (01:44)
[2021-02-09] MEDS ORDERED: ACETAMINOPHEN INJECTION 100 ML IVPB ONE (02:47)
[2021-02-09 03:11] LABS: BASO % 0.4 % (0-2.0); EOS % 0.8 % (0-4.5); HEMATOCRIT 37.1 % (35.4-49); HEMOGLOBIN 11.9 GM/dL (11.7-16.9); LYMPH % 12.5 % (8-40); MCH 24.2 pg (25.7-33.7); MCHC 32.1 g/dl (32.0-35.9); MEAN CELL VOLUME 75.3 fl (80-96); MONO % 10.4 % (3.8-10.2); NEUT % 75.9 % (42.8-82.8); PLATELET COUNT 129 10^3/uL (134-434); RBC 4.92 M/mm3 (4.00-5.60); RDW 13.6 % (11.9-15.9); WHITE BLOOD COUNT 10.2 K/mm3 (4.0-10.0)
[2021-02-09 03:25] LABS: CHLORIDE 110 mmol/L (98-107); SODIUM 141 mmol/L (136-145)
[2021-02-09 03:27] LABS: CALCIUM 8.8 mg/dL (8.5-10.1)
[2021-02-09 03:28] LABS: ALBUMIN 3.9 g/dl (3.4-5.0); ANION GAP 6 MMOL/L (8-16); BLOOD UREA NITROGEN 26.5 mg/dL (7-18); CO2 26 mmol/L (21-32); GLUCOSE,RANDOM 101 mg/dL (74-106)
[2021-02-09 03:31] LABS: CREATININE 1.3 mg/dL (0.55-1.3); SGOT/AST 26 U/L (15-37); SGPT/ALT 11 U/L (13-61)
[2021-02-09 03:33] LABS: BILIRUBIN,TOTAL 0.5 mg/dL (0.2-1); TOT PROT 7.2 g/dl (6.4-8.2)
[2021-02-09 03:34] LABS: ALK PHOS 113 U/L (45-117)
[2021-02-09] MEDS ORDERED: LACTULOSE 20 GM/30 ML UDC (FOR ORAL USE ONLY) PO ONE (03:53)
[2021-02-09] MEDS ORDERED: POLYETHYLENE GLYCOL 3350 119 GM BTL PO ONE (03:53)
[2021-02-09] MEDS ORDERED: MAG HYDROX/AL HYDROX/SIMETH 30 ML UNIT-DOSE CUP PO ONE (03:56)
[2021-02-09] MEDS ORDERED: morphine CARPU-JECT 2 MG/1 ML DISP.SYRIN IVPUSH ONE (04:32)
[2021-02-09] MEDS ORDERED: TAMSULOSIN HCL 0.4 MG CAP PO ONE (04:32)
[2021-02-09] MEDS ORDERED: LACTULOSE 20 GM/30 ML UDC (FOR ORAL USE ONLY) ONE (04:42)
[2021-02-09] MEDS ORDERED: MORPHINE SULFATE 2 MG/ML VIAL ONE (04:43)
[2021-02-09] MEDS ORDERED: POLYETHYLENE GLYCOL (HEALTHYLAX) 3350 17 GM PACKET ONE (04:43)
[2021-02-09] MEDS ORDERED: TAMSULOSIN HCL 0.4 MG CAP ONE (04:43)
[2021-02-09] MEDS ORDERED: MAG HYDROX/AL HYDROX/SIMETH 30 ML UNIT-DOSE CUP ONE (04:44)
[2021-02-09 05:40] LABS: EPI CELLS 3 /uL (0-25.1); HYALINE CASTS 1 /uL (0-3.1); PH,URINE 5.5 (5.0-8.0); URINE APPEARANCE CLEAR; URINE BACTERIA 6 /uL (0-1359); URINE BILIRUBIN NEGATIVE (NEGATIVE); URINE COLOR YELLOW; URINE GLUCOSE (UA) NEGATIVE (NEGATIVE); URINE KETONE NEGATIVE (NEGATIVE); URINE LEUK ESTERASE NEGATIVE (NEGATIVE); URINE NITRITE NEGATIVE (NEGATIVE); URINE PROTEIN NEGATIVE (NEGATIVE); URINE RBC 178 /uL (0-23.9); URINE WBC 4 /uL (0-25.8)
[2021-02-09] MEDS ORDERED: ACETAMINOPHEN 325 MG TABLET (FP) PO PRN (10:13)
[2021-02-09] MEDS ORDERED: SODIUM CHLORIDE 1,000 ML IV SCH ×2 (10:15→15:00)
[2021-02-09] MEDS: FERROUS SO4 325 MG TABLET (FP) PO SCH (17:50)
[2021-02-09] MEDS ORDERED: FERROUS SO4 325 MG TABLET (FP) ONE (18:27)
[2021-02-10] MEDS ORDERED: ASCORBIC ACID 500 MG TABLET (FP) ONE ×2 (04:19→10:00)
[2021-02-10] MEDS ORDERED: ATORVASTATIN CA 40 MG TABLET (FP) ONE (04:19)
[2021-02-10] MEDS ORDERED: CARBIDOPA/LEVODOPA 25/100 TABLET (FP) ONE ×2 (04:20→14:35)
[2021-02-10] MEDS: ASCORBIC ACID 500 MG TABLET (FP) PO SCH ×3 (04:28→22:36)
[2021-02-10] MEDS: CARBIDOPA/LEVODOPA 25/100 TABLET (FP) PO SCH ×4 (04:28→22:36)
[2021-02-10] MEDS: ATORVASTATIN CA 40 MG TABLET (FP) PO SCH ×2 (04:28→22:35)
[2021-02-10 06:35] LABS: HEMATOCRIT 36.9 % (35.4-49); MCH 24.5 pg (25.7-33.7); MCHC 32.5 g/dl (32.0-35.9); MEAN CELL VOLUME 75.5 fl (80-96); PLATELET COUNT 151 10^3/uL (134-434); RBC 4.88 M/mm3 (4.00-5.60); RDW 13.9 % (11.9-15.9); WHITE BLOOD COUNT 9.4 K/mm3 (4.0-10.0)
[2021-02-10 07:11] LABS: CALCIUM 8.9 mg/dL (8.5-10.1)
[2021-02-10 07:12] LABS: BLOOD UREA NITROGEN 22.8 mg/dL (7-18)
[2021-02-10 07:15] LABS: CREATININE 1.2 mg/dL (0.55-1.3)
[2021-02-10] MEDS ORDERED: SENNOSIDES 8.6MG TABLET (FP) PO PRN (07:44)
[2021-02-10] MEDS ORDERED: TAMSULOSIN HCL 0.4 MG CAP ONE (10:00)
[2021-02-10] MEDS: DOCUSATE SODIUM 100 MG CAPSULE (FP) PO SCH ×3 (10:00→22:36)
[2021-02-10] MEDS: LISINOPRIL 20 MG TABLET PO SCH (10:00)
[2021-02-10] MEDS ORDERED: ZINC SULFATE 220 MG CAPSULE (FP) ONE (10:00)
[2021-02-10] MEDS: FERROUS SO4 325 MG TABLET (FP) PO SCH ×2 (10:00→16:36)
[2021-02-10] MEDS: ZINC SULFATE 220 MG CAPSULE (FP) PO SCH (10:00)
[2021-02-10] MEDS: POLYETHYLENE GLYCOL (HEALTHYLAX) 3350 17 GM PACKET PO SCH ×2 (10:00→22:36)
[2021-02-10] MEDS: SODIUM CHLORIDE 1,000 ML IV SCH (10:00)
[2021-02-10] MEDS ORDERED: LISINOPRIL 20 MG TABLET ONE (10:00)
[2021-02-10] MEDS ORDERED: CHOLECALCIFEROL PO SCH (10:00)
[2021-02-10] MEDS: ATENOLOL 50 MG TABLET (FP) PO SCH (10:00)
[2021-02-10] MEDS ORDERED: ASPIRIN COATED 81 MG TABLET.EC PO SCH (10:00)
[2021-02-10] MEDS ORDERED: FERROUS SO4 325 MG TABLET (FP) ONE ×2 (10:01→16:16)
[2021-02-10] MEDS ORDERED: DOCUSATE SODIUM 100 MG CAPSULE (FP) PO ONE ×2 (10:01→14:36)
[2021-02-10] MEDS ORDERED: POLYETHYLENE GLYCOL (HEALTHYLAX) 3350 17 GM PACKET ONE (10:05)
[2021-02-10] MEDS ORDERED: ASPIRIN COATED 81 MG TABLET.EC ONE (10:05)
[2021-02-10] MEDS: TAMSULOSIN HCL 0.4 MG CAP PO SCH (10:40)
[2021-02-11 03:28] VITALS: BMI 22.3
[2021-02-11] MEDS: CARBIDOPA/LEVODOPA 25/100 TABLET (FP) PO SCH ×3 (05:09→21:29)
[2021-02-11] MEDS: DOCUSATE SODIUM 100 MG CAPSULE (FP) PO SCH ×3 (05:09→21:29)
[2021-02-11 08:54] LABS: BASO % 0.4 % (0-2.0); EOS % 2.1 % (0-4.5); HEMATOCRIT 33.8 % (35.4-49); HEMOGLOBIN 10.9 GM/dL (11.7-16.9); LYMPH % 15.1 % (8-40); MCH 24.1 pg (25.7-33.7); MCHC 32.2 g/dl (32.0-35.9); MEAN CELL VOLUME 74.9 fl (80-96); MEAN PLT VOLUME 10.1 fl (7.5-11.1); MONO % 10.8 % (3.8-10.2); NEUT % 71.6 % (42.8-82.8); PLATELET COUNT 149 10^3/uL (134-434); RBC 4.51 M/mm3 (4.00-5.60); RDW 13.4 % (11.9-15.9); WHITE BLOOD COUNT 7.1 K/mm3 (4.0-10.0)
[2021-02-11 09:14] LABS: ALBUMIN 3.2 g/dl (3.4-5.0); CALCIUM 8.2 mg/dL (8.5-10.1)
[2021-02-11 09:15] LABS: BLOOD UREA NITROGEN 18.7 mg/dL (7-18); MAGNESIUM 2.4 mg/dL (1.8-2.4)
[2021-02-11 09:18] LABS: CREATININE 0.8 mg/dL (0.55-1.3)
[2021-02-11 09:19] LABS: BILIRUBIN,TOTAL 0.7 mg/dL (0.2-1)
[2021-02-11] MEDS: SODIUM CHLORIDE 1,000 ML IV SCH (10:28)
[2021-02-11] MEDS ORDERED: PT OWN MED DRAWER 7, Y5N ONE (10:32)
[2021-02-11] MEDS: ATENOLOL 50 MG TABLET (FP) PO SCH (10:37)
[2021-02-11] MEDS: POLYETHYLENE GLYCOL (HEALTHYLAX) 3350 17 GM PACKET PO SCH ×2 (10:37→21:42)
[2021-02-11] MEDS: ASCORBIC ACID 500 MG TABLET (FP) PO SCH ×2 (10:37→21:29)
[2021-02-11] MEDS: FERROUS SO4 325 MG TABLET (FP) PO SCH ×2 (10:37→18:27)
[2021-02-11] MEDS: TAMSULOSIN HCL 0.4 MG CAP PO SCH (10:37)
[2021-02-11] MEDS: ZINC SULFATE 220 MG CAPSULE (FP) PO SCH (10:37)
[2021-02-11] MEDS: LISINOPRIL 20 MG TABLET PO SCH (10:37)
[2021-02-11] MEDS: ATORVASTATIN CA 40 MG TABLET (FP) PO SCH (21:29)
[2021-02-12 06:07] VITALS: BP 165/74; PULSE 63; TEMP 98.5
[2021-02-12] MEDS: CARBIDOPA/LEVODOPA 25/100 TABLET (FP) PO SCH (06:07)
[2021-02-12] MEDS: DOCUSATE SODIUM 100 MG CAPSULE (FP) PO SCH (06:07)
[2021-02-12] MEDS: TAMSULOSIN HCL 0.4 MG CAP PO SCH (08:42)
[2021-02-12] MEDS: FERROUS SO4 325 MG TABLET (FP) PO SCH (08:42)
[2021-02-12] MEDS: SODIUM CHLORIDE 1,000 ML IV SCH (09:22)
[2021-02-12] MEDS: LISINOPRIL 20 MG TABLET PO SCH (09:23)
[2021-02-12] MEDS: ATENOLOL 50 MG TABLET (FP) PO SCH (09:23)
[2021-02-12] MEDS: POLYETHYLENE GLYCOL (HEALTHYLAX) 3350 17 GM PACKET PO SCH (09:23)
[2021-02-12] MEDS: ZINC SULFATE 220 MG CAPSULE (FP) PO SCH (09:23)
[2021-02-12] MEDS: ASCORBIC ACID 500 MG TABLET (FP) PO SCH (09:23)
[2021-02-12 09:41] LABS: BASO % 0.3 % (0-2.0); EOS % 3.4 % (0-4.5); HEMATOCRIT 33.7 % (35.4-49); HEMOGLOBIN 10.8 GM/dL (11.7-16.9); LYMPH % 20.4 % (8-40); MCH 23.7 pg (25.7-33.7); MCHC 31.9 g/dl (32.0-35.9); MEAN CELL VOLUME 74.3 fl (80-96); MONO % 11.1 % (3.8-10.2); NEUT % 64.8 % (42.8-82.8); PLATELET COUNT 144 10^3/uL (134-434); RBC 4.54 M/mm3 (4.00-5.60); RDW 13.3 % (11.9-15.9); WHITE BLOOD COUNT 6.8 K/mm3 (4.0-10.0)
[2021-02-12 09:56] LABS: BLOOD UREA NITROGEN 16.7 mg/dL (7-18)
[2021-02-12 09:57] LABS: ALBUMIN 3.2 g/dl (3.4-5.0); CALCIUM 8.3 mg/dL (8.5-10.1); MAGNESIUM 2.4 mg/dL (1.8-2.4)
[2021-02-12 10:00] LABS: CREATININE 0.8 mg/dL (0.55-1.3)
[2021-02-12 10:02] LABS: BILIRUBIN,TOTAL 0.6 mg/dL (0.2-1); TOT PROT 5.9 g/dl (6.4-8.2)
== END 2021-02-12 13:56 | disposition home or self-care (01) | DRG 694 ==
LOC: JER 00:05 → JERBED 04:35 → J8W 02-10 19:25
PROVIDERS: ADMIT Internal Medicine; ATTEND Internal Medicine
DX: N13.2 Hydronephrosis with renal and ureteral calculous obstruction (principal); I10 Essential (primary) hypertension; E78.5 Hyperlipidemia, unspecified; G20 Parkinson's disease; N40.0 Benign prostatic hyperplasia without lower urinary tract symptoms; N17.9 Acute kidney failure, unspecified; E86.0 Dehydration; Z86.73 Personal history of transient ischemic attack (TIA), and cerebral infarction without residual deficits
CPT/HCPCS: 36415; 74177-TC; 80048; 80053; 81003; 82550; 83690; 83735; 84443; 84484; 85025; 85027; 93005; 93010; 99285-25; C9803; J0131; Q9967; U0003; U0005

== ENCOUNTER 2021-08-01 19:45 | Observation (INO) | payer OTHER ==
[2021-08-01] MEDS ORDERED: ACETAMINOPHEN 1000 MG/100 ML BAG IVPB ONE (20:21)
[2021-08-01] MEDS ORDERED: ACETAMINOPHEN INJECTION 100 ML IVPB ONE (21:07)
[2021-08-01 21:56] LABS: BASO % 0.2 % (0-2.0); HEMATOCRIT 37.5 % (35.4-49); HEMOGLOBIN 11.9 GM/dL (11.7-16.9); LYMPH % 12.1 % (8-40); MCH 23.5 pg (25.7-33.7); MCHC 31.7 g/dl (32.0-35.9); MEAN CELL VOLUME 74.3 fl (80-96); MEAN PLT VOLUME 10.5 fl (7.5-11.1); MONO % 7.8 % (3.8-10.2); NEUT % 78.9 % (42.8-82.8); PLATELET COUNT 136 10^3/uL (134-434); RBC 5.04 M/mm3 (4.00-5.60); RDW 13.6 % (11.9-15.9); WHITE BLOOD COUNT 6.3 K/mm3 (4.0-10.0)
[2021-08-01 22:05] LABS: INR 1.14 (0.83-1.09); PROTHROMBIN TIME (PATIENT) 13.1 SEC (9.7-13.0)
[2021-08-01 22:08] LABS: ACTIVATED PTT 34.1 SECONDS (25.2-36.5)
[2021-08-01 22:16] LABS: CALCIUM 9.8 mg/dL (8.5-10.1)
[2021-08-01 22:18] LABS: BLOOD UREA NITROGEN 30.6 mg/dL (7-18)
[2021-08-01 22:21] LABS: CREATININE 0.9 mg/dL (0.55-1.3)
[2021-08-01 22:23] LABS: BILIRUBIN,TOTAL 0.6 mg/dL (0.2-1); TOT PROT 7.5 g/dl (6.4-8.2)
[2021-08-01] MEDS ORDERED: CARBIDOPA/LEVODOPA 25/100 TABLET (FP) PO ONE (23:58)
[2021-08-02] MEDS ORDERED: CARBIDOPA/LEVODOPA 25/100 TABLET (FP) ONE (00:11)
[2021-08-02 06:29] VITALS: BMI 20.7
[2021-08-02 09:40] LABS: HEMATOCRIT 36.9 % (35.4-49); HEMOGLOBIN 11.4 GM/dL (11.7-16.9); MCH 23.3 pg (25.7-33.7); MEAN CELL VOLUME 75.1 fl (80-96); MEAN PLT VOLUME 10.7 fl (7.5-11.1); PLATELET COUNT 148 10^3/uL (134-434); RBC 4.91 M/mm3 (4.00-5.60); RDW 13.6 % (11.9-15.9); WHITE BLOOD COUNT 6.2 K/mm3 (4.0-10.0)
[2021-08-02 09:50] LABS: INR 1.11 (0.83-1.09); PROTHROMBIN TIME (PATIENT) 12.8 SEC (9.7-13.0)
[2021-08-02 09:51] LABS: ACTIVATED PTT 35.3 SECONDS (25.2-36.5)
[2021-08-02 10:01] LABS: CALCIUM 9.1 mg/dL (8.5-10.1)
[2021-08-02 10:02] LABS: ALBUMIN 3.6 g/dl (3.4-5.0); BLOOD UREA NITROGEN 27.2 mg/dL (7-18); MAGNESIUM 2.6 mg/dL (1.8-2.4)
[2021-08-02 10:05] LABS: CREATININE 0.9 mg/dL (0.55-1.3); PHOSPHOROUS 3.1 mg/dL (2.5-4.9)
[2021-08-02 10:06] LABS: BILIRUBIN,TOTAL 0.7 mg/dL (0.2-1); TOT PROT 6.8 g/dl (6.4-8.2)
[2021-08-02] MEDS: ATENOLOL 50 MG TABLET (FP) PO SCH (10:54)
[2021-08-02] MEDS: LISINOPRIL 20 MG TABLET PO SCH (10:54)
[2021-08-02] MEDS: CARBIDOPA/LEVODOPA 25/100 TABLET (FP) PO SCH ×2 (14:28→21:06)
[2021-08-02] MEDS: ASPIRIN COATED 81 MG TABLET.EC PO SCH (15:45)
[2021-08-02] MEDS: ATORVASTATIN CA 40 MG TABLET (FP) PO SCH (21:06)
[2021-08-02] MEDS: HEPARIN NA (PORCINE) 5,000 UNITS/ML 1ML VIAL SQ SCH (21:06)
[2021-08-02] MEDS: TAMSULOSIN HCL 0.4 MG CAP PO SCH (21:06)
[2021-08-03] MEDS: HEPARIN NA (PORCINE) 5,000 UNITS/ML 1ML VIAL SQ SCH ×3 (05:19→21:19)
[2021-08-03] MEDS: CARBIDOPA/LEVODOPA 25/100 TABLET (FP) PO SCH ×3 (05:19→21:19)
[2021-08-03] MEDS: ASCORBIC ACID 500 MG TABLET (FP) PO SCH (05:59)
[2021-08-03] MEDS: FERROUS SO4 325 MG TABLET (FP) PO SCH (05:59)
[2021-08-03 09:49] LABS: BASO % 0.2 % (0-2.0); EOS % 3.8 % (0-4.5); HEMATOCRIT 35.4 % (35.4-49); HEMOGLOBIN 11.3 GM/dL (11.7-16.9); MCH 23.9 pg (25.7-33.7); MCHC 31.9 g/dl (32.0-35.9); MEAN CELL VOLUME 74.8 fl (80-96); MEAN PLT VOLUME 10.1 fl (7.5-11.1); MONO % 10.2 % (3.8-10.2); NEUT % 60.8 % (42.8-82.8); PLATELET COUNT 135 10^3/uL (134-434); RBC 4.73 M/mm3 (4.00-5.60); RDW 13.4 % (11.9-15.9); WHITE BLOOD COUNT 5.9 K/mm3 (4.0-10.0)
[2021-08-03 10:05] LABS: BLOOD UREA NITROGEN 29.7 mg/dL (7-18); CALCIUM 8.9 mg/dL (8.5-10.1)
[2021-08-03 10:08] LABS: CREATININE 0.9 mg/dL (0.55-1.3)
[2021-08-03] MEDS: LISINOPRIL 20 MG TABLET PO SCH (10:12)
[2021-08-03] MEDS: ASPIRIN COATED 81 MG TABLET.EC PO SCH (10:12)
[2021-08-03] MEDS: ATENOLOL 50 MG TABLET (FP) PO SCH (10:12)
[2021-08-03] MEDS: ATORVASTATIN CA 40 MG TABLET (FP) PO SCH (21:19)
[2021-08-03] MEDS: TAMSULOSIN HCL 0.4 MG CAP PO SCH (21:19)
[2021-08-03] MEDS ORDERED: SENNOSIDES 8.6MG TABLET (FP) PO SCH (22:00)
[2021-08-04] MEDS: FERROUS SO4 325 MG TABLET (FP) PO SCH (06:36)
[2021-08-04] MEDS: ASCORBIC ACID 500 MG TABLET (FP) PO SCH (06:36)
[2021-08-04] MEDS: CARBIDOPA/LEVODOPA 25/100 TABLET (FP) PO SCH ×2 (06:36→14:30)
[2021-08-04] MEDS: HEPARIN NA (PORCINE) 5,000 UNITS/ML 1ML VIAL SQ SCH ×2 (06:36→14:30)
[2021-08-04] MEDS ORDERED: POLYETHYLENE GLYCOL (HEALTHYLAX) 3350 17 GM PACKET PO SCH (10:00)
[2021-08-04] MEDS: ASPIRIN COATED 81 MG TABLET.EC PO SCH (10:34)
[2021-08-04] MEDS: ATENOLOL 50 MG TABLET (FP) PO SCH (10:34)
[2021-08-04] MEDS: LISINOPRIL 20 MG TABLET PO SCH (10:35)
[2021-08-04 16:04] VITALS: BP 183/78; PULSE 55; TEMP 99
== END 2021-08-04 15:30 | disposition home or self-care (01) ==
LOC: JER 19:45 → JERBED 08-02 02:45 → J6S 08-02 05:53
PROVIDERS: ADMIT Hospitalist
PROC: 3E033NZ Introduction of Analgesics, Hypnotics, Sedatives into Peripheral Vein, Percutaneous Approach (ICD-10-PCS; principal; 2021-08-02)
PROC: 3E023GC Introduction of Other Therapeutic Substance into Muscle, Percutaneous Approach (ICD-10-PCS; 2021-08-02)
DX: G20 Parkinson's disease (principal); I10 Essential (primary) hypertension; E78.5 Hyperlipidemia, unspecified; I69.351 Hemiplegia and hemiparesis following cerebral infarction affecting right dominant side; W00.0XXA Fall on same level due to ice and snow, initial encounter; Y93.89 Activity, other specified; Y92.008 Other place in unspecified non-institutional (private) residence as the place of occurrence of the external cause; D50.9 Iron deficiency anemia, unspecified; N40.0 Benign prostatic hyperplasia without lower urinary tract symptoms; Z29.9 Encounter for prophylactic measures, unspecified; Z88.0 Allergy status to penicillin
CPT/HCPCS: 36415; 71045-TC-FY; 72070-TC-FY; 72100-TC-FY; 73523-TC-FY; 80048; 80053; 82550; 82607; 82728; 82746; 83540; 83550; 83735; 84100; 84484; 85025; 85027; 85610; 85730; 93005; 93010; 96372; 96374; 97116-GP; 97162-GP; 99285-25; C9803; G0378; J0131; J1644; U0003; U0005

== ENCOUNTER 2021-09-30 20:23 | Observation (INO) | payer OTHER ==
[2021-09-30 20:31] VITALS: BMI 24.3
[2021-09-30] MEDS ORDERED: ACETAMINOPHEN 1000 MG/100 ML BAG IVPB ONE (21:10)
[2021-09-30] MEDS ORDERED: LIDOCAINE 5% TOPICAL PATCH TP ONE (21:10)
[2021-09-30] MEDS ORDERED: ACETAMINOPHEN INJECTION 100 ML IVPB ONE (21:19)
[2021-09-30] MEDS ORDERED: LIDOCAINE 5% TOPICAL PATCH ONE (21:19)
[2021-09-30] MEDS ORDERED: LIDOCAINE PATCH REMOVAL MC ONE (22:00)
[2021-09-30 22:28] LABS: BASO % 0.7 % (0-2.0); EOS % 2.1 % (0-4.5); HEMATOCRIT 35.2 % (35.4-49); HEMOGLOBIN 11.5 GM/dL (11.7-16.9); LYMPH % 20.3 % (8-40); MCH 24.4 pg (25.7-33.7); MCHC 32.7 g/dl (32.0-35.9); MEAN CELL VOLUME 74.8 fl (80-96); MONO % 8.9 % (3.8-10.2); PLATELET COUNT 155 10^3/uL (134-434); RDW 14.2 % (11.9-15.9); WHITE BLOOD COUNT 6.6 K/mm3 (4.0-10.0)
[2021-09-30 22:38] LABS: INR 1.07 (0.83-1.09); PROTHROMBIN TIME (PATIENT) 12.3 SEC (9.7-13.0)
[2021-09-30 22:39] LABS: ACTIVATED PTT 34.1 SECONDS (25.2-36.5)
[2021-09-30 22:52] LABS: CHLORIDE 108 mmol/L (98-107); SODIUM 140 mmol/L (136-145)
[2021-09-30 22:54] LABS: ALBUMIN 3.3 g/dl (3.4-5.0); BLOOD UREA NITROGEN 24.2 mg/dL (7-18); CALCIUM 8.5 mg/dL (8.5-10.1); CO2 29 mmol/L (21-32); GLUCOSE,RANDOM 99 mg/dL (74-106); MAGNESIUM 2.5 mg/dL (1.8-2.4)
[2021-09-30 22:58] LABS: CREATININE 1.2 mg/dL (0.55-1.3); SGOT/AST 82 U/L (15-37)
[2021-09-30 22:59] LABS: BILIRUBIN,TOTAL 0.5 mg/dL (0.2-1); TOT PROT 7.3 g/dl (6.4-8.2)
[2021-09-30 23:00] LABS: ALK PHOS 101 U/L (45-117)
[2021-09-30 23:02] LABS: N-TERMINAL BNP 352.6 pg/ml (5-450)
[2021-09-30 23:08] LABS: ANION GAP 3 MMOL/L (8-16); SGPT/ALT 20 U/L (13-61)
[2021-10-01] MEDS ORDERED: ASPIRIN 81 MG CHEWABLE TABLETS PO ONE (00:04)
[2021-10-01] MEDS ORDERED: ACETAMINOPHEN 325 MG TABLET (FP) PO PRN (01:37)
[2021-10-01] MEDS ORDERED: LISINOPRIL 20 MG TABLET PO ONE (01:48)
[2021-10-01] MEDS ORDERED: ASPIRIN 81 MG CHEWABLE TABLETS ONE (01:54)
[2021-10-01] MEDS ORDERED: ATENOLOL 50 MG TABLET (FP) PO ONE (02:22)
[2021-10-01 05:56] VITALS: TEMP 97.6
[2021-10-01] MEDS: CARBIDOPA/LEVODOPA 25/100 TABLET (FP) PO SCH ×3 (05:59→22:28)
[2021-10-01 06:40] LABS: HEMATOCRIT 34.1 % (35.4-49); HEMOGLOBIN 10.9 GM/dL (11.7-16.9); MCH 23.8 pg (25.7-33.7); MCHC 31.9 g/dl (32.0-35.9); MEAN CELL VOLUME 74.6 fl (80-96); MEAN PLT VOLUME 9.8 fl (7.5-11.1); PLATELET COUNT 151 10^3/uL (134-434); RBC 4.57 M/mm3 (4.00-5.60); RDW 13.9 % (11.9-15.9); WHITE BLOOD COUNT 5.9 K/mm3 (4.0-10.0)
[2021-10-01 06:58] LABS: ALBUMIN 3.5 g/dl (3.4-5.0); BLOOD UREA NITROGEN 26.1 mg/dL (7-18); CALCIUM 8.7 mg/dL (8.5-10.1)
[2021-10-01 07:01] LABS: CREATININE 0.9 mg/dL (0.55-1.3)
[2021-10-01 07:03] LABS: BILIRUBIN,TOTAL 0.5 mg/dL (0.2-1); TOT PROT 6.4 g/dl (6.4-8.2)
[2021-10-01 07:31] LABS: EPI CELLS 5 /uL (0-25.1); HYALINE CASTS 5 /uL (0-3.1); URINE APPEARANCE CLOUDY; URINE BACTERIA 1 /uL (0-1359); URINE BILIRUBIN NEGATIVE (NEGATIVE); URINE COLOR DK YELLOW; URINE GLUCOSE (UA) NEGATIVE (NEGATIVE); URINE KETONE TRACE (NEGATIVE); URINE LEUK ESTERASE NEGATIVE (NEGATIVE); URINE NITRITE NEGATIVE (NEGATIVE); URINE PROTEIN TRACE (NEGATIVE); URINE WBC 9 /uL (0-25.8)
[2021-10-01] MEDS ORDERED: TAMSULOSIN HCL 0.4 MG CAP PO SCH (08:30)
[2021-10-01] MEDS ORDERED: TAMSULOSIN HCL 0.4 MG CAP ONE (08:31)
[2021-10-01] MEDS ORDERED: amLODIPine BESYLATE 5 MG TABLET (FP) ONE (08:31)
[2021-10-01] MEDS: amLODIPine BESYLATE 5 MG TABLET (FP) PO SCH ×2 (08:37→09:11)
[2021-10-01] MEDS ORDERED: ACETAMINOPHEN 325 MG TABLET (FP) ONE (08:38)
[2021-10-01 09:05] LABS: URINE RBC 359.7 /uL (0-23.9)
[2021-10-01 09:06] LABS: URINE CRYSTALS MANY URIC ACID /hpf
[2021-10-01] MEDS ORDERED: ASPIRIN COATED 81 MG TABLET.EC ONE (09:42)
[2021-10-01] MEDS ORDERED: POLYETHYLENE GLYCOL (HEALTHYLAX) 3350 17 GM PACKET ONE (09:42)
[2021-10-01] MEDS ORDERED: ENOXAPARIN NA (PORCINE) 40 MG/0.4 ML DISP.SYRIN SQ ONE (09:42)
[2021-10-01] MEDS ORDERED: LIDOCAINE PATCH REMOVAL MC SCH ×2 (10:00→22:00)
[2021-10-01] MEDS ORDERED: ASPIRIN COATED 81 MG TABLET.EC PO SCH (10:00)
[2021-10-01] MEDS ORDERED: POLYETHYLENE GLYCOL (HEALTHYLAX) 3350 17 GM PACKET PO SCH (10:00)
[2021-10-01] MEDS ORDERED: ATENOLOL 50 MG TABLET (FP) PO SCH (10:00)
[2021-10-01] MEDS ORDERED: LIDOCAINE 5% TOPICAL PATCH TP SCH ×2 (10:00→22:00)
[2021-10-01] MEDS ORDERED: ENOXAPARIN NA (PORCINE) 40 MG/0.4 ML DISP.SYRIN SQ SCH (10:00)
[2021-10-01] MEDS ORDERED: CARBIDOPA/LEVODOPA 25/100 TABLET (FP) ONE ×2 (13:11→21:10)
[2021-10-01 17:44] VITALS: BP 159/65; PULSE 59
[2021-10-01] MEDS ORDERED: ATORVASTATIN CA 40 MG TABLET (FP) ONE (21:10)
[2021-10-01] MEDS ORDERED: LIDOCAINE 5% TOPICAL PATCH ONE (21:11)
[2021-10-01] MEDS ORDERED: ATORVASTATIN CA 40 MG TABLET (FP) PO SCH (22:00)
[2021-10-02] MEDS ORDERED: LISINOPRIL 20 MG TABLET PO SCH (10:00)
== END 2021-10-01 01:30 | disposition home or self-care (01) ==
LOC: JER 20:23 → JERBED 10-01 00:51
PROVIDERS: ADMIT Hospitalist; ATTEND Internal Medicine
PROC: 3E033NZ Introduction of Analgesics, Hypnotics, Sedatives into Peripheral Vein, Percutaneous Approach (ICD-10-PCS; principal; 2021-10-01)
PROC: 3E023GC Introduction of Other Therapeutic Substance into Muscle, Percutaneous Approach (ICD-10-PCS; 2021-10-01)
DX: I25.10 Atherosclerotic heart disease of native coronary artery without angina pectoris (principal); R07.9 Chest pain, unspecified; R01.1 Cardiac murmur, unspecified; G20 Parkinson's disease; N40.0 Benign prostatic hyperplasia without lower urinary tract symptoms; I10 Essential (primary) hypertension; Z86.73 Personal history of transient ischemic attack (TIA), and cerebral infarction without residual deficits; I11.9 Hypertensive heart disease without heart failure; Z87.891 Personal history of nicotine dependence; G89.29 Other chronic pain; N17.9 Acute kidney failure, unspecified; G93.41 Metabolic encephalopathy; R13.10 Dysphagia, unspecified; U07.1 COVID-19; G93.49 Other encephalopathy; M62.81 Muscle weakness (generalized); E78.00 Pure hypercholesterolemia, unspecified; I07.1 Rheumatic tricuspid insufficiency; Z88.0 Allergy status to penicillin
CPT/HCPCS: 36415; 71045-TC-FY; 80053; 80061; 81003; 83036; 83735; 83880; 84132; 84443; 84484; 85025; 85027; 85610; 85730; 87086; 93005; 93010; 93306-TC; 96372; 96374; 99285-25; C9803-CS; G0378; U0003; U0005

== ENCOUNTER 2022-02-16 12:46 | Emergency (ER) | payer OTHER ==
[2022-02-16 13:13] VITALS: BP 150/66; PULSE 61; RESP 17; TEMP 98.2; BMI 23.1
[2022-02-16] MEDS ORDERED: MECLIZINE HCL 25 MG TABLET (FP) PO ONE (14:27)
[2022-02-16] MEDS ORDERED: MECLIZINE HCL 25 MG TABLET (FP) ONE (14:47)
[2022-02-16 16:51] LABS: BASO % 0.3 % (0-2.0); EOS % 1.2 % (0-4.5); HEMATOCRIT 33.3 % (35.4-49); HEMOGLOBIN 10.6 GM/dL (11.7-16.9); LYMPH % 19.2 % (8-40); MCH 24.1 pg (25.7-33.7); MCHC 31.8 g/dl (32.0-35.9); MEAN CELL VOLUME 75.7 fl (80-96); MEAN PLT VOLUME 9.8 fl (7.5-11.1); MONO % 7.3 % (3.8-10.2); PLATELET COUNT 204 10^3/uL (134-434); RDW 13.5 % (11.9-15.9); WHITE BLOOD COUNT 8.5 K/mm3 (4.0-10.0)
[2022-02-16 16:57] LABS: INR 1.12 (0.83-1.09); PROTHROMBIN TIME (PATIENT) 12.9 SEC (9.7-13.0)
[2022-02-16 17:00] LABS: ACTIVATED PTT 28.7 SECONDS (25.2-36.5)
[2022-02-16 17:21] LABS: ALBUMIN 3.5 g/dl (3.4-5.0); CALCIUM 8.9 mg/dL (8.5-10.1)
[2022-02-16 17:22] LABS: BLOOD UREA NITROGEN 22.2 mg/dL (7-18)
[2022-02-16 17:24] LABS: CREATININE 0.9 mg/dL (0.55-1.3)
[2022-02-16 17:26] LABS: BILIRUBIN,TOTAL 0.4 mg/dL (0.2-1); TOT PROT 6.8 g/dl (6.4-8.2)
== END 2022-02-16 19:03 | disposition home or self-care (01) ==
LOC: JER 12:46
DX: R42 Dizziness and giddiness (principal)
CPT/HCPCS: 36415; 70450-TC; 71045-TC-FY; 72125-TC; 80053; 84484; 85025; 85610; 85730; 93005; 93010; 99285-25; C9803-CS; U0003; U0005

== ENCOUNTER 2022-03-06 08:53 | Emergency (ER) | payer OTHER ==
[2022-03-06 09:05] VITALS: BP 182/90; PULSE 83; RESP 16; TEMP 98.4; BMI 25.8
== END 2022-03-06 16:25 | disposition home or self-care (01) ==
LOC: JER 08:53
DX: R53.1 Weakness (principal)
CPT/HCPCS: 99283-25

== ENCOUNTER 2022-05-25 09:48 | Emergency (ER) | payer OTHER ==
[2022-05-25 10:12] VITALS: RESP 18; TEMP 98.1; BMI 25.0
[2022-05-25] MEDS ORDERED: ACETAMINOPHEN 1000 MG/100 ML BAG IVPB ONE (11:28)
[2022-05-25] MEDS ORDERED: ACETAMINOPHEN INJECTION 100 ML IVPB ONE (11:53)
[2022-05-25 13:36] LABS: BASO % 0.5 % (0-2.0); HEMATOCRIT 34.8 % (35.4-49); HEMOGLOBIN 10.7 GM/dL (11.7-16.9); LYMPH % 23.8 % (8-40); MCH 23.3 pg (25.7-33.7); MCHC 30.8 g/dl (32.0-35.9); MEAN CELL VOLUME 75.6 fl (80-96); MEAN PLT VOLUME 10.7 fl (7.5-11.1); NEUT % 64.7 % (42.8-82.8); PLATELET COUNT 148 10^3/uL (134-434); RBC 4.61 M/mm3 (4.00-5.60); RDW 13.4 % (11.9-15.9); WHITE BLOOD COUNT 7.5 K/mm3 (4.0-10.0)
[2022-05-25 14:01] LABS: ALBUMIN 3.5 g/dl (3.4-5.0); CALCIUM 9.3 mg/dL (8.5-10.1)
[2022-05-25 14:06] LABS: BILIRUBIN,TOTAL 0.4 mg/dL (0.2-1); TOT PROT 6.7 g/dl (6.4-8.2)
[2022-05-25 16:54] LABS: URINE APPEARANCE CLOUDY; URINE BILIRUBIN NEGATIVE (NEGATIVE); URINE COLOR YELLOW; URINE GLUCOSE (UA) NEGATIVE (NEGATIVE); URINE KETONE TRACE (NEGATIVE); URINE LEUK ESTERASE NEGATIVE (NEGATIVE); URINE NITRITE NEGATIVE (NEGATIVE); URINE PROTEIN NEGATIVE (NEGATIVE); URINE UROBILINOGEN 0.2 mg/dL (0.2-1.0)
[2022-05-25 19:09] VITALS: BP 120/74; PULSE 62
== END 2022-05-25 19:09 | disposition home or self-care (01) ==
LOC: JER 09:48
PROC: 3E0333Z Introduction of Anti-inflammatory into Peripheral Vein, Percutaneous Approach (ICD-10-PCS; principal; 2022-05-25)
DX: M54.50 Low back pain, unspecified (principal); G20 Parkinson's disease
CPT/HCPCS: 36415; 74176-TC; 80053; 81003; 83690; 84484; 85025; 87086; 93005; 93010; 96374; 99285-25

== ENCOUNTER 2022-12-07 12:01 | Inpatient (IN) | payer OTHER ==
[2022-12-07] MEDS ORDERED: ATENOLOL 50 MG TABLET (FP) PO ONE (15:16)
[2022-12-07] MEDS ORDERED: LISINOPRIL 20 MG TABLET PO ONE (15:16)
[2022-12-07 15:21] LABS: BASO % 0.8 % (0-2.0); HEMATOCRIT 38.2 % (35.4-49); HEMOGLOBIN 11.7 GM/dL (11.7-16.9); LYMPH % 16.3 % (8-40); MCH 23.1 pg (25.7-33.7); MCHC 30.5 g/dl (32.0-35.9); MEAN CELL VOLUME 75.6 fl (80-96); MEAN PLT VOLUME 10.2 fl (7.5-11.1); NEUT % 74.9 % (42.8-82.8); PLATELET COUNT 164 10^3/uL (134-434); RBC 5.05 M/mm3 (4.00-5.60); WHITE BLOOD COUNT 8.9 K/mm3 (4.0-10.0)
[2022-12-07] MEDS ORDERED: ATENOLOL 50 MG TABLET (FP) ONE (15:27)
[2022-12-07] MEDS ORDERED: LISINOPRIL 20 MG TABLET ONE (15:27)
[2022-12-07 15:52] LABS: POTASSIUM 4.7 mmol/L (3.5-5.1)
[2022-12-07 15:54] LABS: CALCIUM 9.1 mg/dL (8.5-10.1)
[2022-12-07 15:55] LABS: ALBUMIN 3.6 g/dl (3.4-5.0); BLOOD UREA NITROGEN 29.4 mg/dL (7-18)
[2022-12-07 15:58] LABS: CREATININE 1.1 mg/dL (0.55-1.3)
[2022-12-07 15:59] LABS: BILIRUBIN,TOTAL 0.3 mg/dL (0.2-1)
[2022-12-07 16:02] LABS: N-TERMINAL BNP 739.7 pg/ml (5-450)
[2022-12-07] MEDS ORDERED: CEFTRIAXONE 1,000 MG in DEXTROSE 5%-WATER - 50 ML IVPB ONE (16:53)
[2022-12-07] MEDS ORDERED: NITROGLYCERIN SUBLINGUAL 1/150 0.4 MG TAB SL ONE (16:56)
[2022-12-07] MEDS ORDERED: AZITHROMYCIN IVPB 500 MG in DEXTROSE 5%-WATER - 250 ML IVPB ONE (16:57)
[2022-12-07] MEDS ORDERED: CEFTRIAXONE 1 GM/50 ML BAG ONE (17:01)
[2022-12-07] MEDS ORDERED: hydrALAZINE HCL 20 MG/ML VIAL IVPUSH ONE (18:02)
[2022-12-07] MEDS ORDERED: AZITHROMYCIN IVPB 500 MG/250 ML BAG IVPB ONE (18:04)
[2022-12-07] MEDS ORDERED: hydrALAZINE HCL 20 MG/ML VIAL ONE (18:04)
[2022-12-07 19:10] LABS: EPI CELLS 11 /uL (0-25.1); HYALINE CASTS 1 /uL (0-3.1); PH,URINE 5.5 (5.0-8.0); URINE APPEARANCE CLEAR; URINE BACTERIA 24 /uL (0-1359); URINE BILIRUBIN NEGATIVE (NEGATIVE); URINE COLOR YELLOW; URINE GLUCOSE (UA) NEGATIVE (NEGATIVE); URINE KETONE TRACE (NEGATIVE); URINE LEUK ESTERASE TRACE (NEGATIVE); URINE NITRITE NEGATIVE (NEGATIVE); URINE PROTEIN NEGATIVE (NEGATIVE); URINE RBC 21 /uL (0-23.9); URINE UROBILINOGEN 0.2 mg/dL (0.2-1.0); URINE WBC 41 /uL (0-25.8)
[2022-12-07] MEDS ORDERED: FUROSEMIDE 40 MG/4 ML INJECTABLE VIAL ONE (19:32)
[2022-12-07] MEDS: FUROSEMIDE 40 MG/4 ML INJECTABLE VIAL IVPUSH SCH (19:40)
[2022-12-08] MEDS ORDERED: hydrALAZINE HCL 20 MG/ML VIAL IVPUSH ONE (02:05)
[2022-12-08] MEDS ORDERED: hydrALAZINE HCL 20 MG/ML VIAL IM ONE (02:05)
[2022-12-08 05:51] VITALS: BMI 26.8
[2022-12-08] MEDS: rOPINIRole HCL 0.5 MG TABLET PO SCH ×2 (05:53→06:58)
[2022-12-08] MEDS: HEPARIN NA (PORCINE) 5,000 UNITS/ML 1ML VIAL SQ SCH ×3 (05:53→22:00)
[2022-12-08] MEDS: ATORVASTATIN CA 10 MG TABLET (FP) PO SCH ×2 (05:53→21:59)
[2022-12-08] MEDS: CARBIDOPA/LEVODOPA 25/100 TABLET (FP) PO SCH ×4 (05:54→21:59)
[2022-12-08] MEDS ORDERED: rOPINIRole HCL 0.25 MG TABLET PO SCH (06:36)
[2022-12-08] MEDS: rOPINIRole HCL 0.25 MG TABLET PO SCH ×3 (06:55→22:00)
[2022-12-08 09:46] LABS: BASO % 0.3 % (0-2.0); EOS % 2.2 % (0-4.5); HEMATOCRIT 35.7 % (35.4-49); HEMOGLOBIN 11.5 GM/dL (11.7-16.9); LYMPH % 13.7 % (8-40); MCH 23.4 pg (25.7-33.7); MCHC 32.2 g/dl (32.0-35.9); MEAN CELL VOLUME 72.7 fl (80-96); MEAN PLT VOLUME 9.6 fl (7.5-11.1); MONO % 9.2 % (3.8-10.2); NEUT % 74.6 % (42.8-82.8); PLATELET COUNT 166 10^3/uL (134-434); RDW 13.9 % (11.9-15.9); WHITE BLOOD COUNT 8.6 K/mm3 (4.0-10.0)
[2022-12-08 09:56] LABS: BLOOD UREA NITROGEN 24.2 mg/dL (7-18); CALCIUM 9.2 mg/dL (8.5-10.1)
[2022-12-08 09:59] LABS: CREATININE 0.8 mg/dL (0.55-1.3)
[2022-12-08] MEDS: CEFTRIAXONE 1 GM in DEXTROSE 5%-WATER - 50 ML IVPB SCH (10:40)
[2022-12-08] MEDS: TAMSULOSIN HCL 0.4 MG CAP PO SCH (10:40)
[2022-12-08] MEDS: ATENOLOL 50 MG TABLET (FP) PO SCH (10:40)
[2022-12-08] MEDS: ASPIRIN COATED 81 MG TABLET.EC PO SCH (10:40)
[2022-12-08] MEDS: FUROSEMIDE 40 MG/4 ML INJECTABLE VIAL IVPUSH SCH (10:41)
[2022-12-08] MEDS: AZITHROMYCIN IVPB 250 MG in DEXTROSE 5%-WATER - 250 ML IVPB SCH (12:34)
[2022-12-09] MEDS: CARBIDOPA/LEVODOPA 25/100 TABLET (FP) PO SCH ×3 (07:16→21:42)
[2022-12-09] MEDS: rOPINIRole HCL 0.25 MG TABLET PO SCH ×3 (07:16→21:42)
[2022-12-09] MEDS: TAMSULOSIN HCL 0.4 MG CAP PO SCH (08:40)
[2022-12-09 08:54] LABS: BASO % 0.3 % (0-2.0); EOS % 2.5 % (0-4.5); HEMATOCRIT 35.8 % (35.4-49); HEMOGLOBIN 11.3 GM/dL (11.7-16.9); LYMPH % 20.2 % (8-40); MCH 22.9 pg (25.7-33.7); MCHC 31.5 g/dl (32.0-35.9); MEAN CELL VOLUME 72.7 fl (80-96); MEAN PLT VOLUME 9.5 fl (7.5-11.1); MONO % 10.8 % (3.8-10.2); NEUT % 66.2 % (42.8-82.8); PLATELET COUNT 172 10^3/uL (134-434); RBC 4.93 M/mm3 (4.00-5.60); RDW 14.6 % (11.9-15.9); WHITE BLOOD COUNT 8.3 K/mm3 (4.0-10.0)
[2022-12-09 09:14] LABS: POTASSIUM 4.1 mmol/L (3.5-5.1)
[2022-12-09 09:20] LABS: ALBUMIN 3.2 g/dl (3.4-5.0); BLOOD UREA NITROGEN 29.4 mg/dL (7-18)
[2022-12-09 09:21] LABS: MAGNESIUM 2.7 mg/dL (1.8-2.4)
[2022-12-09 09:23] LABS: CREATININE 1.1 mg/dL (0.55-1.3)
[2022-12-09 09:25] LABS: BILIRUBIN,TOTAL 0.8 mg/dL (0.2-1); TOT PROT 6.4 g/dl (6.4-8.2)
[2022-12-09] MEDS: HEPARIN NA (PORCINE) 5,000 UNITS/ML 1ML VIAL SQ SCH ×2 (10:39→21:43)
[2022-12-09] MEDS: FUROSEMIDE 40 MG/4 ML INJECTABLE VIAL IVPUSH SCH (10:39)
[2022-12-09] MEDS: ATENOLOL 50 MG TABLET (FP) PO SCH (10:40)
[2022-12-09] MEDS: CEFTRIAXONE 1 GM in DEXTROSE 5%-WATER - 50 ML IVPB SCH (10:40)
[2022-12-09] MEDS: ASPIRIN COATED 81 MG TABLET.EC PO SCH (10:40)
[2022-12-09] MEDS: AZITHROMYCIN IVPB 250 MG in DEXTROSE 5%-WATER - 250 ML IVPB SCH (10:40)
[2022-12-09] MEDS: ATORVASTATIN CA 10 MG TABLET (FP) PO SCH (21:42)
[2022-12-09 22:43] VITALS: RESP 18
[2022-12-10] MEDS: CARBIDOPA/LEVODOPA 25/100 TABLET (FP) PO SCH ×3 (05:22→22:09)
[2022-12-10] MEDS: rOPINIRole HCL 0.25 MG TABLET PO SCH ×3 (05:22→22:09)
[2022-12-10] MEDS: HEPARIN NA (PORCINE) 5,000 UNITS/ML 1ML VIAL SQ SCH ×2 (09:43→22:09)
[2022-12-10] MEDS: FUROSEMIDE 40 MG/4 ML INJECTABLE VIAL IVPUSH SCH (09:43)
[2022-12-10] MEDS: TAMSULOSIN HCL 0.4 MG CAP PO SCH (09:43)
[2022-12-10] MEDS: ATENOLOL 50 MG TABLET (FP) PO SCH (09:43)
[2022-12-10] MEDS: ASPIRIN COATED 81 MG TABLET.EC PO SCH (09:43)
[2022-12-10] MEDS: CEFTRIAXONE 1 GM in DEXTROSE 5%-WATER - 50 ML IVPB SCH (09:50)
[2022-12-10 10:00] LABS: HEMATOCRIT 38.2 % (35.4-49); HEMOGLOBIN 11.8 GM/dL (11.7-16.9); MCHC 30.8 g/dl (32.0-35.9); MEAN CELL VOLUME 74.5 fl (80-96); PLATELET COUNT 153 10^3/uL (134-434); RBC 5.13 M/mm3 (4.00-5.60); RDW 13.9 % (11.9-15.9)
[2022-12-10 10:04] LABS: WHITE BLOOD COUNT 9.9 K/mm3 (4.0-10.0)
[2022-12-10] MEDS: AZITHROMYCIN IVPB 250 MG in DEXTROSE 5%-WATER - 250 ML IVPB SCH (10:30)
[2022-12-10 11:29] LABS: ALBUMIN 3.8 g/dl (3.4-5.0); BILIRUBIN,TOTAL 1.1 mg/dL (0.2-1); BLOOD UREA NITROGEN 36.7 mg/dL (7-18); CALCIUM 9.3 mg/dL (8.5-10.1); MAGNESIUM 2.8 mg/dL (1.8-2.4); TOT PROT 7.1 g/dl (6.4-8.2)
[2022-12-10 11:33] LABS: ANISOCYTOSIS 0; MACROCYTOSIS 0
[2022-12-10] MEDS: ATORVASTATIN CA 10 MG TABLET (FP) PO SCH (22:09)
[2022-12-11] MEDS: rOPINIRole HCL 0.25 MG TABLET PO SCH ×2 (05:45→16:19)
[2022-12-11] MEDS: CARBIDOPA/LEVODOPA 25/100 TABLET (FP) PO SCH ×2 (05:46→16:19)
[2022-12-11] MEDS: TAMSULOSIN HCL 0.4 MG CAP PO SCH (09:24)
[2022-12-11 09:33] LABS: BASO % 0.1 % (0-2.0); EOS % 0.3 % (0-4.5); HEMATOCRIT 38.7 % (35.4-49); HEMOGLOBIN 12.3 GM/dL (11.7-16.9); LYMPH % 6.7 % (8-40); MCH 23.1 pg (25.7-33.7); MCHC 31.8 g/dl (32.0-35.9); MEAN CELL VOLUME 72.7 fl (80-96); MEAN PLT VOLUME 9.5 fl (7.5-11.1); MONO % 8.5 % (3.8-10.2); NEUT % 84.4 % (42.8-82.8); PLATELET COUNT 184 10^3/uL (134-434); RBC 5.33 M/mm3 (4.00-5.60); RDW 14.1 % (11.9-15.9)
[2022-12-11 09:42] LABS: POTASSIUM 4.8 mmol/L (3.5-5.1)
[2022-12-11 09:54] LABS: CALCIUM 9.7 mg/dL (8.5-10.1)
[2022-12-11 09:55] LABS: ALBUMIN 4.1 g/dl (3.4-5.0); MAGNESIUM 3.1 mg/dL (1.8-2.4)
[2022-12-11 09:57] LABS: CREATININE 2.5 mg/dL (0.55-1.3)
[2022-12-11 09:58] LABS: BLOOD UREA NITROGEN 52.7 mg/dL (7-18)
[2022-12-11 09:59] LABS: TOT PROT 7.8 g/dl (6.4-8.2)
[2022-12-11] MEDS ORDERED: FUROSEMIDE 40 MG TABLET (FP) PO SCH (10:00)
[2022-12-11] MEDS ORDERED: AZITHROMYCIN 250 MG TABLET PO SCH (10:00)
[2022-12-11] MEDS: CEFTRIAXONE 1 GM in DEXTROSE 5%-WATER - 50 ML IVPB SCH (10:24)
[2022-12-11] MEDS: ASPIRIN COATED 81 MG TABLET.EC PO SCH (10:24)
[2022-12-11] MEDS: HEPARIN NA (PORCINE) 5,000 UNITS/ML 1ML VIAL SQ SCH (10:24)
[2022-12-11] MEDS: ATENOLOL 50 MG TABLET (FP) PO SCH (10:24)
[2022-12-11 12:00] VITALS: PULSE 71
[2022-12-11 16:11] VITALS: BP 130/79
[2022-12-11 16:21] VITALS: TEMP 98.5
[2022-12-11] MEDS ORDERED: AMOX TR/POT CLAV 875MG/125MG TABLETS (FP) PO SCH (17:30)
[2022-12-11] MEDS ORDERED: DOXYCYCLINE HYCLATE 100 MG CAPSULE PO SCH (18:00)
== END 2022-12-11 17:05 | DRG 193 ==
LOC: JER 12:01 → UNDOADMOB 17:41 → INTOOBSV 17:41 → JERBED 17:41 → J8W 12-08 01:33 → OBSVTOIN 12-08 08:34
PROVIDERS: ADMIT Internal Medicine; ATTEND Nurse Practitioner Acute Care
DX: J18.9 Pneumonia, unspecified organism (principal); I50.31 Acute diastolic (congestive) heart failure; E78.5 Hyperlipidemia, unspecified; G20 Parkinson's disease; I11.0 Hypertensive heart disease with heart failure; R07.9 Chest pain, unspecified; N40.0 Benign prostatic hyperplasia without lower urinary tract symptoms; I69.30 Unspecified sequelae of cerebral infarction
CPT/HCPCS: 0241U-QW; 36415; 70450-TC; 71045-TC-FY; 71275-TC; 80048; 80053; 81003; 83735; 83880; 84484; 85025; 87040; 87086; 87635; 87899; 93005; 93010; 93306-TC; 93970-TC; 93971-TC; 97116-GP; 97162-GP; 99285-25; G0378; J1644; Q9967

== ENCOUNTER 2022-12-16 11:40 | Inpatient (IN) | payer OTHER ==
[2022-12-16] MEDS ORDERED: ALBUTEROL SO4 2.5/IPRATROPIUM 0.5 INH SOL 3 ML VIAL.NEB. NEB ONE ×2 (12:57→13:03)
[2022-12-16 13:01] LABS: VENOUS BASE EXCESS -0.4 mmol/L (-2-2); VENOUS O2 SATURATION 28.3 % (70-80); VENOUS PCO2 48.2 mmHg (38-52); VENOUS PH 7.343 (7.310-7.410)
[2022-12-16 13:04] LABS: BASO % 0.7 % (0-2.0); EOS % 1.8 % (0-4.5); HEMATOCRIT 34.2 % (35.4-49); HEMOGLOBIN 10.9 GM/dL (11.7-16.9); LYMPH % 8.9 % (8-40); MCH 23.1 pg (25.7-33.7); MCHC 31.8 g/dl (32.0-35.9); MEAN CELL VOLUME 72.5 fl (80-96); MEAN PLT VOLUME 10.1 fl (7.5-11.1); MONO % 10.2 % (3.8-10.2); NEUT % 78.4 % (42.8-82.8); PLATELET COUNT 138 10^3/uL (134-434); RBC 4.71 M/mm3 (4.00-5.60); RDW 13.7 % (11.9-15.9); WHITE BLOOD COUNT 9.6 K/mm3 (4.0-10.0)
[2022-12-16 13:08] LABS: INR 1.13 (0.83-1.09); PROTHROMBIN TIME (PATIENT) 13.1 SEC (9.7-13.0)
[2022-12-16 13:11] LABS: ACTIVATED PTT 31.2 SECONDS (25.2-36.5)
[2022-12-16 13:42] LABS: CHLORIDE 104 mmol/L (98-107); POTASSIUM 5.4 mmol/L (3.5-5.1); SODIUM 141 mmol/L (136-145)
[2022-12-16 13:45] LABS: ALBUMIN 3.4 g/dl (3.4-5.0); ANION GAP 9 MMOL/L (8-16); CO2 27 mmol/L (21-32); GLUCOSE,RANDOM 111 mg/dL (74-106)
[2022-12-16 13:47] LABS: SGPT/ALT 9 U/L (13-61)
[2022-12-16 13:48] LABS: CREATININE 4.3 mg/dL (0.55-1.3); SGOT/AST 33 U/L (15-37)
[2022-12-16 13:49] LABS: BILIRUBIN,TOTAL 0.8 mg/dL (0.2-1); TOT PROT 7.2 g/dl (6.4-8.2)
[2022-12-16 13:50] LABS: ALK PHOS 74 U/L (45-117)
[2022-12-16 13:53] LABS: N-TERMINAL BNP 672.1 pg/ml (5-450)
[2022-12-16 13:55] LABS: BLOOD UREA NITROGEN 112.8 mg/dL (7-18)
[2022-12-16] MEDS ORDERED: ASPIRIN 325 MG TABLET PO ONE (14:24)
[2022-12-16] MEDS ORDERED: ASPIRIN 81 MG CHEWABLE TABLETS ONE (14:34)
[2022-12-16] MEDS ORDERED: HEPARIN NA (PORCINE) 5,000 UNITS/ML 1ML VIAL IVPUSH ONE (15:45)
[2022-12-16] MEDS ORDERED: HEPARIN NA (PORCINE) 5,000 UNITS/ML 1ML VIAL IVPUSH PRN ×2 (15:45)
[2022-12-16] MEDS ORDERED: SODIUM CHLORIDE 1,000 ML IV SCH (16:00)
[2022-12-16] MEDS ORDERED: HEPARIN - 25,000 UNIT in SODIUM CHLORIDE 495 ML IV SCH (16:30)
[2022-12-16] MEDS ORDERED: SODIUM ZIRCONIUM CYCLOSILICATE (LOKELMA) 5 GM PACKET PO ONE (16:30)
[2022-12-16] MEDS ORDERED: SODIUM ZIRCONIUM CYCLOSILICATE (LOKELMA) 5 GM PACKET ONE (17:02)
[2022-12-16] MEDS ORDERED: HEPARIN INFUSION - 25,000 UNITS/500 ML INFUS.BAG IVPB ONE (17:03)
[2022-12-16] MEDS ORDERED: HEPARIN NA (PORCINE) 5,000 UNITS/ML 1ML VIAL ONE (17:03)
[2022-12-16] MEDS: HEPARIN INFUSION - 25,000 UNITS/500 ML INFUS.BAG IVPB SCH (17:23)
[2022-12-16] MEDS: ATORVASTATIN CA 10 MG TABLET (FP) PO SCH (21:34)
[2022-12-16] MEDS: rOPINIRole HCL 0.25 MG TABLET PO SCH (21:34)
[2022-12-16] MEDS: CARBIDOPA/LEVODOPA 25/100 TABLET (FP) PO SCH (21:35)
[2022-12-17] MEDS: CARBIDOPA/LEVODOPA 25/100 TABLET (FP) PO SCH ×3 (06:00→21:34)
[2022-12-17] MEDS: rOPINIRole HCL 0.25 MG TABLET PO SCH ×3 (06:00→21:34)
[2022-12-17 08:00] LABS: BASO % 0.5 % (0-2.0); EOS % 3.5 % (0-4.5); HEMATOCRIT 32.8 % (35.4-49); HEMOGLOBIN 10.3 GM/dL (11.7-16.9); LYMPH % 10.6 % (8-40); MCH 23.1 pg (25.7-33.7); MCHC 31.3 g/dl (32.0-35.9); MEAN CELL VOLUME 73.8 fl (80-96); MEAN PLT VOLUME 10.6 fl (7.5-11.1); MONO % 10.4 % (3.8-10.2); PLATELET COUNT 138 10^3/uL (134-434); RBC 4.45 M/mm3 (4.00-5.60); RDW 13.7 % (11.9-15.9); WHITE BLOOD COUNT 8.6 K/mm3 (4.0-10.0)
[2022-12-17 08:23] LABS: CHLORIDE 106 mmol/L (98-107); POTASSIUM 4.5 mmol/L (3.5-5.1); SODIUM 142 mmol/L (136-145)
[2022-12-17 08:28] LABS: ANION GAP 11 MMOL/L (8-16); CO2 25 mmol/L (21-32); GLUCOSE,RANDOM 121 mg/dL (74-106)
[2022-12-17] MEDS ORDERED: TAMSULOSIN HCL 0.4 MG CAP PO SCH (08:30)
[2022-12-17 08:32] LABS: CREATININE 4.3 mg/dL (0.55-1.3)
[2022-12-17] MEDS: ATENOLOL 25 MG TABLET (FP) PO SCH (09:17)
[2022-12-17] MEDS: ASPIRIN COATED 81 MG TABLET.EC PO SCH (09:17)
[2022-12-17] MEDS: FAMOTIDINE 10 MG TABLET PO SCH (09:17)
[2022-12-17] MEDS ORDERED: SODIUM CHLORIDE 0.45% 1,000 ML IV SCH (16:45)
[2022-12-17] MEDS: HEPARIN INFUSION - 25,000 UNITS/500 ML INFUS.BAG IVPB SCH (18:22)
[2022-12-17] MEDS: HEPARIN NA (PORCINE) 5,000 UNITS/ML 1ML VIAL SQ SCH (21:34)
[2022-12-17] MEDS: ATORVASTATIN CA 10 MG TABLET (FP) PO SCH (21:34)
[2022-12-18] MEDS: HEPARIN NA (PORCINE) 5,000 UNITS/ML 1ML VIAL SQ SCH ×2 (05:55→15:07)
[2022-12-18] MEDS: rOPINIRole HCL 0.25 MG TABLET PO SCH ×3 (05:55→21:34)
[2022-12-18] MEDS: CARBIDOPA/LEVODOPA 25/100 TABLET (FP) PO SCH ×3 (05:55→21:33)
[2022-12-18 07:35] LABS: BASO % 0.4 % (0-2.0); EOS % 4.5 % (0-4.5); HEMATOCRIT 30.8 % (35.4-49); HEMOGLOBIN 10.2 GM/dL (11.7-16.9); LYMPH % 13.7 % (8-40); MCH 23.8 pg (25.7-33.7); MEAN CELL VOLUME 72.2 fl (80-96); MEAN PLT VOLUME 9.6 fl (7.5-11.1); NEUT % 70.4 % (42.8-82.8); PLATELET COUNT 136 10^3/uL (134-434); RBC 4.27 M/mm3 (4.00-5.60); RDW 13.8 % (11.9-15.9); WHITE BLOOD COUNT 8.1 K/mm3 (4.0-10.0)
[2022-12-18 07:56] LABS: POTASSIUM 4.3 mmol/L (3.5-5.1)
[2022-12-18 08:06] LABS: BLOOD UREA NITROGEN 73.4 mg/dL (7-18); CALCIUM 9.1 mg/dL (8.5-10.1); CREATININE 1.6 mg/dL (0.55-1.3); MAGNESIUM 2.3 mg/dL (1.8-2.4); PHOSPHOROUS 3.1 mg/dL (2.5-4.9)
[2022-12-18] MEDS ORDERED: SODIUM CHLORIDE 0.45% 1,000 ML IV SCH (08:30)
[2022-12-18] MEDS: TAMSULOSIN HCL 0.4 MG CAP PO SCH (08:31)
[2022-12-18] MEDS: FAMOTIDINE 10 MG TABLET PO SCH (09:46)
[2022-12-18] MEDS: ATENOLOL 25 MG TABLET (FP) PO SCH (09:46)
[2022-12-18] MEDS: ASPIRIN COATED 81 MG TABLET.EC PO SCH (09:46)
[2022-12-18] MEDS: ATORVASTATIN CA 10 MG TABLET (FP) PO SCH (21:33)
[2022-12-19] MEDS: CARBIDOPA/LEVODOPA 25/100 TABLET (FP) PO SCH ×3 (06:20→21:08)
[2022-12-19] MEDS: rOPINIRole HCL 0.25 MG TABLET PO SCH ×3 (06:20→21:08)
[2022-12-19 08:40] LABS: BASO % 0.4 % (0-2.0); EOS % 4.9 % (0-4.5); HEMATOCRIT 33.2 % (35.4-49); HEMOGLOBIN 10.3 GM/dL (11.7-16.9); LYMPH % 14.3 % (8-40); MCH 23.1 pg (25.7-33.7); MEAN CELL VOLUME 74.4 fl (80-96); MEAN PLT VOLUME 10.1 fl (7.5-11.1); MONO % 11.5 % (3.8-10.2); NEUT % 68.9 % (42.8-82.8); PLATELET COUNT 150 10^3/uL (134-434); RBC 4.46 M/mm3 (4.00-5.60); RDW 13.3 % (11.9-15.9); WHITE BLOOD COUNT 8.8 K/mm3 (4.0-10.0)
[2022-12-19 09:16] LABS: POTASSIUM 4.3 mmol/L (3.5-5.1)
[2022-12-19 09:20] LABS: ALBUMIN 3.2 g/dl (3.4-5.0)
[2022-12-19] MEDS: ASPIRIN COATED 81 MG TABLET.EC PO SCH (09:22)
[2022-12-19] MEDS: ATENOLOL 25 MG TABLET (FP) PO SCH (09:22)
[2022-12-19] MEDS: TAMSULOSIN HCL 0.4 MG CAP PO SCH (09:23)
[2022-12-19] MEDS: FAMOTIDINE 10 MG TABLET PO SCH (09:23)
[2022-12-19 09:24] LABS: CREATININE 0.9 mg/dL (0.55-1.3)
[2022-12-19 09:25] LABS: TOT PROT 6.2 g/dl (6.4-8.2)
[2022-12-19 09:27] LABS: BILIRUBIN,TOTAL 0.8 mg/dL (0.2-1)
[2022-12-19] MEDS ORDERED: NIFEdipine E.R. 30 MG TABLET PO ONE (09:30)
[2022-12-19 09:31] LABS: BLOOD UREA NITROGEN 40.1 mg/dL (7-18)
[2022-12-19] MEDS ORDERED: POTASSIUM CHLORIDE 10 MEQ in DEXTROSE 5%-WATER - 1,000 ML IV SCH (11:00)
[2022-12-19] MEDS: POTASSIUM CHLORIDE 10 MEQ in DEXTROSE 5%-WATER - 1,000 ML IV SCH (11:19)
[2022-12-19] MEDS: ATORVASTATIN CA 10 MG TABLET (FP) PO SCH (21:08)
[2022-12-20] MEDS: POTASSIUM CHLORIDE 10 MEQ in DEXTROSE 5%-WATER - 1,000 ML IV SCH (02:54)
[2022-12-20] MEDS ORDERED: hydrALAZINE HCL 20 MG/ML VIAL IVPUSH PRN (03:32)
[2022-12-20] MEDS: rOPINIRole HCL 0.25 MG TABLET PO SCH ×3 (06:09→22:43)
[2022-12-20] MEDS: CARBIDOPA/LEVODOPA 25/100 TABLET (FP) PO SCH ×3 (06:09→22:43)
[2022-12-20] MEDS: TAMSULOSIN HCL 0.4 MG CAP PO SCH (08:02)
[2022-12-20 08:26] LABS: HEMATOCRIT 32.3 % (35.4-49); HEMOGLOBIN 10.1 GM/dL (11.7-16.9); MCH 23.2 pg (25.7-33.7); MCHC 31.2 g/dl (32.0-35.9); MEAN CELL VOLUME 74.4 fl (80-96); MEAN PLT VOLUME 9.9 fl (7.5-11.1); PLATELET COUNT 139 10^3/uL (134-434); RBC 4.34 M/mm3 (4.00-5.60); RDW 13.4 % (11.9-15.9); WHITE BLOOD COUNT 10.4 K/mm3 (4.0-10.0)
[2022-12-20 08:50] LABS: POTASSIUM 4.1 mmol/L (3.5-5.1)
[2022-12-20 09:03] LABS: CALCIUM 8.8 mg/dL (8.5-10.1)
[2022-12-20 09:04] LABS: BLOOD UREA NITROGEN 24.6 mg/dL (7-18)
[2022-12-20 09:07] LABS: CREATININE 0.8 mg/dL (0.55-1.3)
[2022-12-20] MEDS: ATENOLOL 25 MG TABLET (FP) PO SCH (09:15)
[2022-12-20] MEDS: FAMOTIDINE 10 MG TABLET PO SCH (09:15)
[2022-12-20] MEDS: ASPIRIN COATED 81 MG TABLET.EC PO SCH (09:15)
[2022-12-20] MEDS: NIFEdipine E.R. 30 MG TABLET PO SCH (09:15)
[2022-12-20] MEDS: ATORVASTATIN CA 10 MG TABLET (FP) PO SCH (22:43)
[2022-12-21] MEDS: rOPINIRole HCL 0.25 MG TABLET PO SCH ×3 (05:34→21:37)
[2022-12-21] MEDS: CARBIDOPA/LEVODOPA 25/100 TABLET (FP) PO SCH ×3 (05:34→21:37)
[2022-12-21 07:51] LABS: HEMATOCRIT 31.7 % (35.4-49); HEMOGLOBIN 9.8 GM/dL (11.7-16.9); MCH 22.9 pg (25.7-33.7); MCHC 30.7 g/dl (32.0-35.9); MEAN CELL VOLUME 74.3 fl (80-96); MEAN PLT VOLUME 9.9 fl (7.5-11.1); PLATELET COUNT 148 10^3/uL (134-434); RBC 4.27 M/mm3 (4.00-5.60); RDW 13.5 % (11.9-15.9); WHITE BLOOD COUNT 11.2 K/mm3 (4.0-10.0)
[2022-12-21 08:08] LABS: POTASSIUM 4.2 mmol/L (3.5-5.1)
[2022-12-21 08:09] LABS: CALCIUM 8.8 mg/dL (8.5-10.1)
[2022-12-21 08:10] LABS: BLOOD UREA NITROGEN 20.7 mg/dL (7-18); MAGNESIUM 1.7 mg/dL (1.8-2.4)
[2022-12-21 08:13] LABS: CREATININE 0.8 mg/dL (0.55-1.3)
[2022-12-21] MEDS: ASPIRIN COATED 81 MG TABLET.EC PO SCH (09:17)
[2022-12-21] MEDS: TAMSULOSIN HCL 0.4 MG CAP PO SCH (09:17)
[2022-12-21] MEDS: NIFEdipine E.R. 30 MG TABLET PO SCH (09:17)
[2022-12-21] MEDS: FAMOTIDINE 10 MG TABLET PO SCH (09:17)
[2022-12-21] MEDS: ATENOLOL 25 MG TABLET (FP) PO SCH (09:17)
[2022-12-21] MEDS ORDERED: MAGNESIUM SULF 50% (8.12 MEQ/2 ML-1 GM VIAL) IVPB ONE (16:17)
[2022-12-21] MEDS: ATORVASTATIN CA 10 MG TABLET (FP) PO SCH (21:37)
[2022-12-22] MEDS: rOPINIRole HCL 0.25 MG TABLET PO SCH ×3 (06:03→22:20)
[2022-12-22] MEDS: CARBIDOPA/LEVODOPA 25/100 TABLET (FP) PO SCH ×3 (06:03→22:21)
[2022-12-22 08:17] LABS: HEMATOCRIT 32.3 % (35.4-49); MCHC 30.8 g/dl (32.0-35.9); MEAN CELL VOLUME 74.5 fl (80-96); MEAN PLT VOLUME 10.1 fl (7.5-11.1); PLATELET COUNT 165 10^3/uL (134-434); RBC 4.34 M/mm3 (4.00-5.60); RDW 13.3 % (11.9-15.9); WHITE BLOOD COUNT 11.5 K/mm3 (4.0-10.0)
[2022-12-22 08:35] LABS: POTASSIUM 4.2 mmol/L (3.5-5.1)
[2022-12-22 08:37] LABS: CALCIUM 8.8 mg/dL (8.5-10.1)
[2022-12-22 08:38] LABS: ALBUMIN 2.9 g/dl (3.4-5.0); BLOOD UREA NITROGEN 25.4 mg/dL (7-18); MAGNESIUM 2.3 mg/dL (1.8-2.4)
[2022-12-22 08:41] LABS: CREATININE 0.8 mg/dL (0.55-1.3)
[2022-12-22 08:44] LABS: PHOSPHOROUS 2.8 mg/dL (2.5-4.9)
[2022-12-22 08:46] LABS: BILIRUBIN,TOTAL 0.6 mg/dL (0.2-1)
[2022-12-22 09:13] LABS: ANISOCYTOSIS 0; HELMET CELLS 0; HOWELL-JOLLY BODIES 0; MACROCYTOSIS 0; OVALOCYTE 0; ROULEAU 0; SICKELED CELLS 0; TARGET CELLS 0; TEAR DROP CELLS 0; TOXIC GRANULATION 0
[2022-12-22] MEDS: ASPIRIN COATED 81 MG TABLET.EC PO SCH (09:53)
[2022-12-22] MEDS: FAMOTIDINE 10 MG TABLET PO SCH (09:53)
[2022-12-22] MEDS: NIFEdipine E.R. 30 MG TABLET PO SCH (09:53)
[2022-12-22] MEDS: ATENOLOL 25 MG TABLET (FP) PO SCH (09:53)
[2022-12-22] MEDS: TAMSULOSIN HCL 0.4 MG CAP PO SCH (09:53)
[2022-12-22] MEDS: ATORVASTATIN CA 10 MG TABLET (FP) PO SCH (22:21)
[2022-12-23] MEDS: rOPINIRole HCL 0.25 MG TABLET PO SCH ×3 (05:44→21:49)
[2022-12-23] MEDS: CARBIDOPA/LEVODOPA 25/100 TABLET (FP) PO SCH ×3 (05:44→21:48)
[2022-12-23] MEDS: TAMSULOSIN HCL 0.4 MG CAP PO SCH (09:07)
[2022-12-23] MEDS: ATENOLOL 25 MG TABLET (FP) PO SCH (09:17)
[2022-12-23] MEDS: ASPIRIN COATED 81 MG TABLET.EC PO SCH (09:17)
[2022-12-23] MEDS: FAMOTIDINE 10 MG TABLET PO SCH (09:17)
[2022-12-23] MEDS: NIFEdipine E.R. 30 MG TABLET PO SCH (09:17)
[2022-12-23] MEDS: ATORVASTATIN CA 10 MG TABLET (FP) PO SCH (21:48)
[2022-12-23] MEDS ORDERED: ACETAMINOPHEN 500 MG TABLET (FP) PO ONE (23:50)
[2022-12-24] MEDS: CARBIDOPA/LEVODOPA 25/100 TABLET (FP) PO SCH ×3 (05:29→21:05)
[2022-12-24] MEDS: rOPINIRole HCL 0.25 MG TABLET PO SCH ×3 (06:20→21:05)
[2022-12-24] MEDS: ASPIRIN COATED 81 MG TABLET.EC PO SCH (10:13)
[2022-12-24] MEDS: TAMSULOSIN HCL 0.4 MG CAP PO SCH (10:13)
[2022-12-24] MEDS: ATENOLOL 25 MG TABLET (FP) PO SCH (10:13)
[2022-12-24] MEDS: NIFEdipine E.R. 30 MG TABLET PO SCH (10:13)
[2022-12-24] MEDS: FAMOTIDINE 10 MG TABLET PO SCH (10:13)
[2022-12-24] MEDS ORDERED: hydrALAZINE HCL 20 MG/ML VIAL IVPUSH PRN (16:28)
[2022-12-24] MEDS: ATORVASTATIN CA 10 MG TABLET (FP) PO SCH (21:05)
[2022-12-25] MEDS: rOPINIRole HCL 0.25 MG TABLET PO SCH ×3 (05:56→21:10)
[2022-12-25] MEDS: CARBIDOPA/LEVODOPA 25/100 TABLET (FP) PO SCH ×3 (05:56→21:10)
[2022-12-25 09:50] LABS: BASO % 0.5 % (0-2.0); EOS % 3.4 % (0-4.5); HEMATOCRIT 30.1 % (35.4-49); HEMOGLOBIN 9.6 GM/dL (11.7-16.9); LYMPH % 12.7 % (8-40); MCH 23.2 pg (25.7-33.7); MEAN CELL VOLUME 72.6 fl (80-96); MEAN PLT VOLUME 9.3 fl (7.5-11.1); MONO % 8.3 % (3.8-10.2); NEUT % 75.1 % (42.8-82.8); PLATELET COUNT 191 10^3/uL (134-434); RBC 4.15 M/mm3 (4.00-5.60); RDW 13.5 % (11.9-15.9); WHITE BLOOD COUNT 9.5 K/mm3 (4.0-10.0)
[2022-12-25 10:05] LABS: POTASSIUM 4.6 mmol/L (3.5-5.1)
[2022-12-25] MEDS: FAMOTIDINE 10 MG TABLET PO SCH (10:06)
[2022-12-25] MEDS: TAMSULOSIN HCL 0.4 MG CAP PO SCH (10:06)
[2022-12-25] MEDS: ASPIRIN COATED 81 MG TABLET.EC PO SCH (10:06)
[2022-12-25 10:11] LABS: ALBUMIN 2.7 g/dl (3.4-5.0); BLOOD UREA NITROGEN 25.7 mg/dL (7-18); CALCIUM 8.8 mg/dL (8.5-10.1)
[2022-12-25 10:14] LABS: CREATININE 0.9 mg/dL (0.55-1.3)
[2022-12-25 10:16] LABS: BILIRUBIN,TOTAL 0.7 mg/dL (0.2-1); TOT PROT 6.1 g/dl (6.4-8.2)
[2022-12-25] MEDS: NIFEdipine E.R. 30 MG TABLET PO SCH (12:41)
[2022-12-25] MEDS: ATENOLOL 25 MG TABLET (FP) PO SCH (12:53)
[2022-12-25] MEDS: ACETAMINOPHEN 325 MG TABLET (FP) PO PRN ×2 (13:56→21:10)
[2022-12-25] MEDS: ATORVASTATIN CA 10 MG TABLET (FP) PO SCH (21:10)
[2022-12-25 22:08] VITALS: BMI 22.4
[2022-12-26] MEDS: rOPINIRole HCL 0.25 MG TABLET PO SCH ×3 (06:18→22:11)
[2022-12-26] MEDS: CARBIDOPA/LEVODOPA 25/100 TABLET (FP) PO SCH ×3 (06:19→22:11)
[2022-12-26] MEDS: ACETAMINOPHEN 325 MG TABLET (FP) PO PRN (06:19)
[2022-12-26] MEDS: TAMSULOSIN HCL 0.4 MG CAP PO SCH (09:04)
[2022-12-26] MEDS: NIFEdipine E.R. 30 MG TABLET PO SCH (09:40)
[2022-12-26] MEDS: FAMOTIDINE 10 MG TABLET PO SCH (09:40)
[2022-12-26] MEDS: ATENOLOL 25 MG TABLET (FP) PO SCH (09:40)
[2022-12-26] MEDS: ASPIRIN COATED 81 MG TABLET.EC PO SCH (09:40)
[2022-12-26] MEDS: ATORVASTATIN CA 10 MG TABLET (FP) PO SCH (22:11)
[2022-12-27] MEDS: rOPINIRole HCL 0.25 MG TABLET PO SCH ×3 (05:40→21:46)
[2022-12-27] MEDS: CARBIDOPA/LEVODOPA 25/100 TABLET (FP) PO SCH ×3 (05:40→21:46)
[2022-12-27] MEDS: TAMSULOSIN HCL 0.4 MG CAP PO SCH (09:17)
[2022-12-27] MEDS: ATENOLOL 25 MG TABLET (FP) PO SCH (09:18)
[2022-12-27] MEDS: NIFEdipine E.R. 30 MG TABLET PO SCH (09:18)
[2022-12-27] MEDS: ASPIRIN COATED 81 MG TABLET.EC PO SCH (09:18)
[2022-12-27] MEDS: FAMOTIDINE 10 MG TABLET PO SCH (09:18)
[2022-12-27] MEDS: ATORVASTATIN CA 10 MG TABLET (FP) PO SCH (21:46)
[2022-12-27] MEDS: ACETAMINOPHEN 325 MG TABLET (FP) PO PRN (21:46)
[2022-12-28] MEDS: rOPINIRole HCL 0.25 MG TABLET PO SCH (05:52)
[2022-12-28] MEDS: CARBIDOPA/LEVODOPA 25/100 TABLET (FP) PO SCH (05:52)
[2022-12-28 07:23] VITALS: RESP 18
[2022-12-28] MEDS: TAMSULOSIN HCL 0.4 MG CAP PO SCH (08:28)
[2022-12-28] MEDS: ATENOLOL 25 MG TABLET (FP) PO SCH (10:04)
[2022-12-28] MEDS: FAMOTIDINE 10 MG TABLET PO SCH (10:04)
[2022-12-28] MEDS: ASPIRIN COATED 81 MG TABLET.EC PO SCH (10:04)
[2022-12-28] MEDS: NIFEdipine E.R. 30 MG TABLET PO SCH (10:04)
[2022-12-28 10:46] VITALS: BP 137/69; PULSE 70; TEMP 97.8
== END 2022-12-28 12:40 | DRG 682 ==
LOC: JER 11:40 → JERBED 14:21 → J4W 20:33 → J5S 12-24 14:39
PROVIDERS: ADMIT Internal Medicine; ATTEND Internal Medicine
DX: N17.9 Acute kidney failure, unspecified (principal); I21.A1 Myocardial infarction type 2; I50.32 Chronic diastolic (congestive) heart failure; E87.0 Hyperosmolality and hypernatremia; I11.0 Hypertensive heart disease with heart failure; R33.9 Retention of urine, unspecified; G20 Parkinson's disease; N40.0 Benign prostatic hyperplasia without lower urinary tract symptoms; K21.9 Gastro-esophageal reflux disease without esophagitis; E78.5 Hyperlipidemia, unspecified; R07.9 Chest pain, unspecified; I25.10 Atherosclerotic heart disease of native coronary artery without angina pectoris; E86.0 Dehydration; N13.30 Unspecified hydronephrosis
CPT/HCPCS: 0241U-QW; 36415; 71045-TC-FY; 74176-TC; 74183-TC; 76775-TC; 80048; 80053; 82272; 82803; 83735; 83880; 84100; 84295; 84484; 85025; 85027; 85610; 85730; 87635; 93005; 93010; 97116-GP; 97162-GP; 99285-25; J1644

== ENCOUNTER 2023-02-05 00:32 | Observation (INO) | payer OTHER ==
[2023-02-05 02:04] LABS: BASO % 0.7 % (0-2.0); HEMATOCRIT 32.8 % (35.4-49); HEMOGLOBIN 10.3 GM/dL (11.7-16.9); MCH 23.6 pg (25.7-33.7); MCHC 31.6 g/dl (32.0-35.9); MEAN CELL VOLUME 74.7 fl (80-96); MEAN PLT VOLUME 10.5 fl (7.5-11.1); MONO % 7.8 % (3.8-10.2); NEUT % 68.5 % (42.8-82.8); PLATELET COUNT 180 10^3/uL (134-434); RBC 4.39 M/mm3 (4.00-5.60); RDW 14.2 % (11.9-15.9); WHITE BLOOD COUNT 9.5 K/mm3 (4.0-10.0)
[2023-02-05 02:13] LABS: POTASSIUM 4.5 mmol/L (3.5-5.1)
[2023-02-05 02:15] LABS: CALCIUM 8.9 mg/dL (8.5-10.1)
[2023-02-05 02:16] LABS: ALBUMIN 3.5 g/dl (3.4-5.0); BLOOD UREA NITROGEN 27.1 mg/dL (7-18); MAGNESIUM 2.7 mg/dL (1.8-2.4)
[2023-02-05 02:19] LABS: CREATININE 1.3 mg/dL (0.55-1.3)
[2023-02-05 02:41] LABS: BILIRUBIN,TOTAL 0.3 mg/dL (0.2-1); N-TERMINAL BNP 429.5 pg/ml (5-450)
[2023-02-05 06:08] VITALS: RESP 18
[2023-02-05] MEDS ORDERED: ASPIRIN COATED 81 MG TABLET.EC PO SCH (10:00)
[2023-02-05] MEDS: FAMOTIDINE 10 MG TABLET PO SCH (10:10)
[2023-02-05] MEDS: FUROSEMIDE 40 MG TABLET (FP) PO SCH (10:10)
[2023-02-05] MEDS: ENOXAPARIN NA (PORCINE) 40 MG/0.4 ML DISP.SYRIN SQ SCH (10:10)
[2023-02-05] MEDS: TAMSULOSIN HCL 0.4 MG CAP PO SCH (10:10)
[2023-02-05] MEDS: NIFEdipine E.R. 30 MG TABLET PO SCH (10:10)
[2023-02-05] MEDS: ATENOLOL 50 MG TABLET (FP) PO SCH (11:21)
[2023-02-05 11:51] VITALS: BMI 25.2
[2023-02-05 11:54] LABS: HEMATOCRIT 34.6 % (35.4-49); HEMOGLOBIN 10.7 GM/dL (11.7-16.9); MCH 23.2 pg (25.7-33.7); MCHC 30.9 g/dl (32.0-35.9); MEAN CELL VOLUME 75.2 fl (80-96); MEAN PLT VOLUME 10.3 fl (7.5-11.1); PLATELET COUNT 149 10^3/uL (134-434); WHITE BLOOD COUNT 9.4 K/mm3 (4.0-10.0)
[2023-02-05 12:14] LABS: POTASSIUM 4.8 mmol/L (3.5-5.1)
[2023-02-05 12:16] LABS: ALBUMIN 3.4 g/dl (3.4-5.0); BLOOD UREA NITROGEN 26.1 mg/dL (7-18); MAGNESIUM 2.8 mg/dL (1.8-2.4)
[2023-02-05 12:19] LABS: CREATININE 1.2 mg/dL (0.55-1.3); PHOSPHOROUS 3.5 mg/dL (2.5-4.9)
[2023-02-05 12:20] LABS: BILIRUBIN,TOTAL 0.4 mg/dL (0.2-1); TOT PROT 6.8 g/dl (6.4-8.2)
[2023-02-05] MEDS: CARBIDOPA/LEVODOPA 25/100 TABLET (FP) PO SCH ×2 (13:38→21:23)
[2023-02-05] MEDS: rOPINIRole HCL 0.25 MG TABLET PO SCH ×2 (13:39→21:23)
[2023-02-05] MEDS ORDERED: SODIUM CHLORIDE 1,000 ML IV SCH (15:45)
[2023-02-05] MEDS ORDERED: ATORVASTATIN CA 10 MG TABLET (FP) PO SCH (22:00)
[2023-02-06] MEDS: rOPINIRole HCL 0.25 MG TABLET PO SCH (05:23)
[2023-02-06] MEDS: CARBIDOPA/LEVODOPA 25/100 TABLET (FP) PO SCH (05:23)
[2023-02-06 06:12] VITALS: PULSE 53
[2023-02-06 07:31] LABS: HEMATOCRIT 32.6 % (35.4-49); HEMOGLOBIN 10.2 GM/dL (11.7-16.9); MCH 23.3 pg (25.7-33.7); MCHC 31.1 g/dl (32.0-35.9); MEAN CELL VOLUME 74.9 fl (80-96); MEAN PLT VOLUME 10.1 fl (7.5-11.1); PLATELET COUNT 169 10^3/uL (134-434); RBC 4.36 M/mm3 (4.00-5.60); RDW 13.7 % (11.9-15.9); WHITE BLOOD COUNT 7.1 K/mm3 (4.0-10.0)
[2023-02-06 07:46] LABS: POTASSIUM 4.2 mmol/L (3.5-5.1)
[2023-02-06 07:50] LABS: CALCIUM 8.5 mg/dL (8.5-10.1)
[2023-02-06 07:51] LABS: BLOOD UREA NITROGEN 27.5 mg/dL (7-18); MAGNESIUM 2.4 mg/dL (1.8-2.4)
[2023-02-06 07:54] LABS: BILIRUBIN,TOTAL 0.4 mg/dL (0.2-1); PHOSPHOROUS 3.2 mg/dL (2.5-4.9); TOT PROT 6.3 g/dl (6.4-8.2)
[2023-02-06 09:05] VITALS: BP 147/70; TEMP 98
[2023-02-06] MEDS: NIFEdipine E.R. 30 MG TABLET PO SCH (09:07)
[2023-02-06] MEDS: TAMSULOSIN HCL 0.4 MG CAP PO SCH (09:07)
[2023-02-06] MEDS: FUROSEMIDE 40 MG TABLET (FP) PO SCH (09:07)
[2023-02-06] MEDS: ATENOLOL 50 MG TABLET (FP) PO SCH (09:07)
[2023-02-06] MEDS: FAMOTIDINE 10 MG TABLET PO SCH (09:07)
[2023-02-06] MEDS: ENOXAPARIN NA (PORCINE) 40 MG/0.4 ML DISP.SYRIN SQ SCH (09:08)
== END 2023-02-06 13:56 | disposition home or self-care (01) ==
LOC: JER 00:32 → JERBED 03:51 → INTOOBSV 03:51 → J4S 07:53
PROVIDERS: ADMIT Student in an Organized Health Care Education/Training Program; ATTEND Internal Medicine
PROC: 3E023GC Introduction of Other Therapeutic Substance into Muscle, Percutaneous Approach (ICD-10-PCS; principal; 2023-02-05)
PROC: 3E0337Z Introduction of Electrolytic and Water Balance Substance into Peripheral Vein, Percutaneous Approach (ICD-10-PCS; 2023-02-05)
DX: I25.10 Atherosclerotic heart disease of native coronary artery without angina pectoris (principal); G20 Parkinson's disease; N17.9 Acute kidney failure, unspecified; E78.5 Hyperlipidemia, unspecified; I10 Essential (primary) hypertension; N40.0 Benign prostatic hyperplasia without lower urinary tract symptoms; Z86.73 Personal history of transient ischemic attack (TIA), and cerebral infarction without residual deficits; Z87.891 Personal history of nicotine dependence; Z87.828 Personal history of other (healed) physical injury and trauma; W18.39XA Other fall on same level, initial encounter; Y93.89 Activity, other specified; Y92.009 Unspecified place in unspecified non-institutional (private) residence as the place of occurrence of the external cause; Z88.0 Allergy status to penicillin; X58.XXXA Exposure to other specified factors, initial encounter; Y99.8 Other external cause status
CPT/HCPCS: 36415; 70450-TC; 71045-TC-FY; 72125-TC; 80053; 82607; 82728; 82746; 83010; 83036; 83540; 83550; 83615; 83735; 83880; 84100; 84439; 84443; 84484; 85025; 85027; 85045; 87040; 93005; 93010; 96360; 96372; 97116-GP; 97161-GP; 99285-25; G0378

== ENCOUNTER 2023-02-23 09:58 | Inpatient (IN) | payer OTHER ==
[2023-02-23 12:42] LABS: BASO % 0.2 % (0-2.0); EOS % 0.3 % (0-4.5); HEMOGLOBIN 11.8 GM/dL (11.7-16.9); LYMPH % 8.5 % (8-40); MCHC 31.2 g/dl (32.0-35.9); MEAN CELL VOLUME 73.7 fl (80-96); MEAN PLT VOLUME 9.8 fl (7.5-11.1); MONO % 6.3 % (3.8-10.2); NEUT % 84.7 % (42.8-82.8); PLATELET COUNT 166 10^3/uL (134-434); RBC 5.15 M/mm3 (4.00-5.60); RDW 13.8 % (11.9-15.9); WHITE BLOOD COUNT 11.2 K/mm3 (4.0-10.0)
[2023-02-23 12:58] LABS: POTASSIUM 4.4 mmol/L (3.5-5.1)
[2023-02-23 13:01] LABS: ALBUMIN 3.6 g/dl (3.4-5.0); BLOOD UREA NITROGEN 19.5 mg/dL (7-18); CALCIUM 9.2 mg/dL (8.5-10.1)
[2023-02-23 13:03] LABS: CREATININE 1.3 mg/dL (0.55-1.3)
[2023-02-23 13:06] LABS: BILIRUBIN,TOTAL 0.6 mg/dL (0.2-1); TOT PROT 7.3 g/dl (6.4-8.2)
[2023-02-23 17:41] LABS: EPI CELLS 1 /uL (0-25.1); HYALINE CASTS 2 /uL (0-3.1); PH,URINE 5.5 (5.0-8.0); URINE APPEARANCE CLOUDY; URINE BACTERIA 3476 /uL (0-1359); URINE BILIRUBIN NEGATIVE (NEGATIVE); URINE COLOR YELLOW; URINE GLUCOSE (UA) NEGATIVE (NEGATIVE); URINE KETONE TRACE (NEGATIVE); URINE LEUK ESTERASE 2+ (NEGATIVE); URINE NITRITE NEGATIVE (NEGATIVE); URINE PROTEIN TRACE (NEGATIVE); URINE RBC 15 /uL (0-23.9); URINE UROBILINOGEN 0.2 mg/dL (0.2-1.0); URINE WBC 521 /uL (0-25.8)
[2023-02-23] MEDS ORDERED: SODIUM CHLORIDE 0.9% 500 ML INFUS.BAG IV ONE (18:24)
[2023-02-23] MEDS ORDERED: ACETAMINOPHEN 325 MG TABLET (FP) PO PRN (21:29)
[2023-02-23] MEDS ORDERED: ATENOLOL 50 MG TABLET (FP) PO SCH (21:30)
[2023-02-23] MEDS ORDERED: rOPINIRole HCL 0.25 MG TABLET PO SCH (22:00)
[2023-02-23] MEDS ORDERED: ASPIRIN COATED 81 MG TABLET.EC ONE (22:10)
[2023-02-23] MEDS ORDERED: ATENOLOL 50 MG TABLET (FP) ONE ×2 (22:10→22:12)
[2023-02-23] MEDS ORDERED: ATORVASTATIN CA 20 MG TABLET (FP) ONE (22:10)
[2023-02-23] MEDS ORDERED: MEROPENEM 1 GM VIAL (RESTRICTED TO ID) IVPB ONE (22:11)
[2023-02-23] MEDS ORDERED: CARBIDOPA/LEVODOPA 25/100 TABLET (FP) ONE (22:11)
[2023-02-23] MEDS ORDERED: LISINOPRIL 20 MG TABLET ONE (22:11)
[2023-02-23] MEDS ORDERED: ENOXAPARIN NA (PORCINE) 40 MG/0.4 ML DISP.SYRIN SQ ONE (22:11)
[2023-02-23] MEDS ORDERED: FOLIC ACID 1 MG TABLET (FP) ONE (22:11)
[2023-02-23] MEDS: ATORVASTATIN CA 10 MG TABLET (FP) PO SCH (22:36)
[2023-02-23] MEDS: CARBIDOPA/LEVODOPA 25/100 TABLET (FP) PO SCH (22:36)
[2023-02-23] MEDS: LISINOPRIL 20 MG TABLET PO SCH (22:36)
[2023-02-23] MEDS: FOLIC ACID 1 MG TABLET (FP) PO SCH (22:37)
[2023-02-23] MEDS: ENOXAPARIN NA (PORCINE) 40 MG/0.4 ML DISP.SYRIN SQ SCH (22:37)
[2023-02-23] MEDS: ASPIRIN COATED 81 MG TABLET.EC PO SCH (22:37)
[2023-02-23] MEDS: SODIUM CHLORIDE 1,000 ML IV SCH (22:37)
[2023-02-23] MEDS: MEROPENEM 1 GM in DEXTROSE 5%-WATER 100 ML IVPB SCH (22:37)
[2023-02-23] MEDS: AMANTADINE HCL 100 MG TABLET PO SCH (23:19)
[2023-02-24] MEDS ORDERED: MEROPENEM 1 GM VIAL (RESTRICTED TO ID) IVPB ONE ×2 (06:21→13:41)
[2023-02-24] MEDS ORDERED: CARBIDOPA/LEVODOPA 25/100 TABLET (FP) ONE (06:22)
[2023-02-24] MEDS: MEROPENEM 1 GM in DEXTROSE 5%-WATER 100 ML IVPB SCH ×3 (06:28→19:38)
[2023-02-24] MEDS: CARBIDOPA/LEVODOPA 25/100 TABLET (FP) PO SCH ×3 (06:28→22:28)
[2023-02-24] MEDS: rOPINIRole HCL 0.5 MG TABLET PO SCH ×4 (07:00→22:51)
[2023-02-24 08:07] LABS: BASO % 0.4 % (0-2.0); EOS % 1.9 % (0-4.5); HEMATOCRIT 38.4 % (35.4-49); HEMOGLOBIN 12.3 GM/dL (11.7-16.9); LYMPH % 13.5 % (8-40); MCH 23.7 pg (25.7-33.7); MCHC 32.1 g/dl (32.0-35.9); MEAN CELL VOLUME 73.7 fl (80-96); MEAN PLT VOLUME 9.8 fl (7.5-11.1); MONO % 9.6 % (3.8-10.2); NEUT % 74.6 % (42.8-82.8); PLATELET COUNT 154 10^3/uL (134-434); RBC 5.21 M/mm3 (4.00-5.60); RDW 14.1 % (11.9-15.9); WHITE BLOOD COUNT 9.1 K/mm3 (4.0-10.0)
[2023-02-24 08:28] LABS: POTASSIUM 4.6 mmol/L (3.5-5.1)
[2023-02-24 08:30] LABS: BLOOD UREA NITROGEN 17.8 mg/dL (7-18); CALCIUM 8.7 mg/dL (8.5-10.1); MAGNESIUM 2.5 mg/dL (1.8-2.4)
[2023-02-24 08:31] LABS: ALBUMIN 3.3 g/dl (3.4-5.0)
[2023-02-24 08:34] LABS: CREATININE 1.1 mg/dL (0.55-1.3); PHOSPHOROUS 2.9 mg/dL (2.5-4.9)
[2023-02-24 08:35] LABS: BILIRUBIN,TOTAL 0.9 mg/dL (0.2-1)
[2023-02-24] MEDS ORDERED: ASPIRIN COATED 81 MG TABLET.EC ONE (10:38)
[2023-02-24] MEDS ORDERED: LISINOPRIL 20 MG TABLET ONE (10:38)
[2023-02-24] MEDS ORDERED: FOLIC ACID 1 MG TABLET (FP) ONE (10:38)
[2023-02-24] MEDS ORDERED: ENOXAPARIN NA (PORCINE) 40 MG/0.4 ML DISP.SYRIN SQ ONE (10:38)
[2023-02-24] MEDS: ENOXAPARIN NA (PORCINE) 40 MG/0.4 ML DISP.SYRIN SQ SCH (10:45)
[2023-02-24] MEDS: FOLIC ACID 1 MG TABLET (FP) PO SCH (10:45)
[2023-02-24] MEDS: AMANTADINE HCL 100 MG TABLET PO SCH ×2 (10:45→22:52)
[2023-02-24] MEDS: LISINOPRIL 20 MG TABLET PO SCH (10:45)
[2023-02-24] MEDS: ASPIRIN COATED 81 MG TABLET.EC PO SCH (10:45)
[2023-02-24] MEDS: CARVEDILOL 6.25 MG TABLET (FP) PO SCH ×2 (10:45→22:29)
[2023-02-24] MEDS ORDERED: CARVEDILOL 6.25 MG TABLET (FP) ONE (11:01)
[2023-02-24] MEDS ORDERED: MEROPENEM 1 GM in DEXTROSE 5%-WATER 100 ML IVPB SCH (14:00)
[2023-02-24] MEDS ORDERED: VANCOMYCIN/WATER FOR INJ (PEG) 1,000 MG/200 ML BAG IVPB SCH (14:00)
[2023-02-24] MEDS ORDERED: VANCOMYCIN 1 GRAM (PRE-DOCKED) 1,000 MG/250 ML BAG IVPB ONE (15:00)
[2023-02-24] MEDS: ATORVASTATIN CA 10 MG TABLET (FP) PO SCH (22:29)
[2023-02-25] MEDS: SODIUM CHLORIDE 1,000 ML IV SCH ×2 (01:36→22:28)
[2023-02-25] MEDS: rOPINIRole HCL 0.5 MG TABLET PO SCH ×3 (06:13→22:01)
[2023-02-25] MEDS: CARBIDOPA/LEVODOPA 25/100 TABLET (FP) PO SCH ×3 (06:13→22:01)
[2023-02-25] MEDS: CARVEDILOL 6.25 MG TABLET (FP) PO SCH ×2 (09:43→22:01)
[2023-02-25] MEDS: AMANTADINE HCL 100 MG TABLET PO SCH ×2 (09:43→23:17)
[2023-02-25] MEDS: LISINOPRIL 20 MG TABLET PO SCH (09:43)
[2023-02-25] MEDS: ASPIRIN COATED 81 MG TABLET.EC PO SCH (09:43)
[2023-02-25] MEDS: FOLIC ACID 1 MG TABLET (FP) PO SCH (09:43)
[2023-02-25] MEDS: ENOXAPARIN NA (PORCINE) 40 MG/0.4 ML DISP.SYRIN SQ SCH (09:44)
[2023-02-25] MEDS: DAPTOMYCIN 500 MG in SODIUM CHLORIDE 50 ML IVPB SCH (14:50)
[2023-02-26] MEDS: CARBIDOPA/LEVODOPA 25/100 TABLET (FP) PO SCH ×3 (06:09→22:21)
[2023-02-26] MEDS: rOPINIRole HCL 0.5 MG TABLET PO SCH ×3 (06:09→22:22)
[2023-02-26 08:39] LABS: BASO % 0.3 % (0-2.0); EOS % 4.4 % (0-4.5); HEMATOCRIT 31.5 % (35.4-49); HEMOGLOBIN 10.2 GM/dL (11.7-16.9); LYMPH % 19.9 % (8-40); MCH 24.2 pg (25.7-33.7); MCHC 32.2 g/dl (32.0-35.9); MEAN PLT VOLUME 9.9 fl (7.5-11.1); MONO % 10.1 % (3.8-10.2); NEUT % 65.3 % (42.8-82.8); PLATELET COUNT 140 10^3/uL (134-434); RDW 13.9 % (11.9-15.9); WHITE BLOOD COUNT 7.3 K/mm3 (4.0-10.0)
[2023-02-26 09:01] LABS: CHLORIDE 113 mmol/L (98-107); SODIUM 145 mmol/L (136-145)
[2023-02-26 09:02] LABS: CALCIUM 8.1 mg/dL (8.5-10.1)
[2023-02-26 09:03] LABS: ALBUMIN 2.8 g/dl (3.4-5.0); ANION GAP 5 MMOL/L (8-16); BLOOD UREA NITROGEN 16.3 mg/dL (7-18); CO2 27 mmol/L (21-32); GLUCOSE,RANDOM 104 mg/dL (74-106); MAGNESIUM 2.2 mg/dL (1.8-2.4)
[2023-02-26 09:06] LABS: CREATININE 0.8 mg/dL (0.55-1.3); SGOT/AST 24 U/L (15-37); SGPT/ALT < 6 U/L (13-61)
[2023-02-26 09:07] LABS: TOT PROT 5.7 g/dl (6.4-8.2)
[2023-02-26 09:09] LABS: ALK PHOS 81 U/L (45-117); BILIRUBIN,TOTAL 0.6 mg/dL (0.2-1)
[2023-02-26] MEDS: ASPIRIN COATED 81 MG TABLET.EC PO SCH (10:41)
[2023-02-26] MEDS: LISINOPRIL 20 MG TABLET PO SCH (10:41)
[2023-02-26] MEDS: CARVEDILOL 6.25 MG TABLET (FP) PO SCH ×2 (10:41→22:21)
[2023-02-26] MEDS: AMANTADINE HCL 100 MG TABLET PO SCH ×2 (10:41→22:22)
[2023-02-26] MEDS: ENOXAPARIN NA (PORCINE) 40 MG/0.4 ML DISP.SYRIN SQ SCH (10:41)
[2023-02-26] MEDS: FOLIC ACID 1 MG TABLET (FP) PO SCH (10:41)
[2023-02-26] MEDS ORDERED: BISACODYL 5 MG TABLET.DR (FP) PO ONE (12:48)
[2023-02-26] MEDS: DAPTOMYCIN 500 MG in SODIUM CHLORIDE 50 ML IVPB SCH (14:32)
[2023-02-27] MEDS: rOPINIRole HCL 0.5 MG TABLET PO SCH ×3 (06:53→21:49)
[2023-02-27] MEDS: CARBIDOPA/LEVODOPA 25/100 TABLET (FP) PO SCH ×3 (06:53→21:49)
[2023-02-27] MEDS: LISINOPRIL 20 MG TABLET PO SCH (09:14)
[2023-02-27] MEDS: FOLIC ACID 1 MG TABLET (FP) PO SCH (09:14)
[2023-02-27] MEDS: ASPIRIN COATED 81 MG TABLET.EC PO SCH (09:14)
[2023-02-27] MEDS: CARVEDILOL 6.25 MG TABLET (FP) PO SCH ×2 (09:14→21:49)
[2023-02-27] MEDS: ENOXAPARIN NA (PORCINE) 40 MG/0.4 ML DISP.SYRIN SQ SCH (09:15)
[2023-02-27] MEDS ORDERED: CARVEDILOL 6.25 MG TABLET (FP) PO SCH (09:49)
[2023-02-27] MEDS: AMANTADINE HCL 100 MG TABLET PO SCH ×2 (11:22→21:49)
[2023-02-27 12:17] LABS: BASO % 0.8 % (0-2.0); EOS % 3.1 % (0-4.5); HEMATOCRIT 35.8 % (35.4-49); HEMOGLOBIN 11.4 GM/dL (11.7-16.9); LYMPH % 16.7 % (8-40); MCH 23.5 pg (25.7-33.7); MCHC 31.9 g/dl (32.0-35.9); MEAN CELL VOLUME 73.7 fl (80-96); MONO % 8.2 % (3.8-10.2); NEUT % 71.2 % (42.8-82.8); RBC 4.86 M/mm3 (4.00-5.60); RDW 13.6 % (11.9-15.9); WHITE BLOOD COUNT 8.6 K/mm3 (4.0-10.0)
[2023-02-27 12:28] LABS: MEAN PLT VOLUME 9.5 fl (7.5-11.1); PLATELET COUNT 123 10^3/uL (134-434)
[2023-02-27 12:40] LABS: CHLORIDE 110 mmol/L (98-107); POTASSIUM 4.4 mmol/L (3.5-5.1); SODIUM 145 mmol/L (136-145)
[2023-02-27 12:42] LABS: CALCIUM 8.6 mg/dL (8.5-10.1)
[2023-02-27 12:43] LABS: ALBUMIN 3.1 g/dl (3.4-5.0); ANION GAP 4 MMOL/L (8-16); BLOOD UREA NITROGEN 12.2 mg/dL (7-18); CO2 30 mmol/L (21-32); GLUCOSE,RANDOM 104 mg/dL (74-106); MAGNESIUM 2.3 mg/dL (1.8-2.4)
[2023-02-27 12:46] LABS: CREATININE 0.8 mg/dL (0.55-1.3); SGOT/AST 44 U/L (15-37); SGPT/ALT 10 U/L (13-61)
[2023-02-27 12:47] LABS: BILIRUBIN,TOTAL 0.5 mg/dL (0.2-1); TOT PROT 6.8 g/dl (6.4-8.2)
[2023-02-27 12:49] LABS: ALK PHOS 95 U/L (45-117)
[2023-02-27] MEDS: DAPTOMYCIN 500 MG in SODIUM CHLORIDE 50 ML IVPB SCH (14:27)
[2023-02-27] MEDS: NIFEdipine E.R. 30 MG TABLET PO SCH (14:27)
[2023-02-27] MEDS ORDERED: LISINOPRIL 20 MG TABLET PO ONE (18:15)
[2023-02-28] MEDS: CARBIDOPA/LEVODOPA 25/100 TABLET (FP) PO SCH ×3 (05:22→22:14)
[2023-02-28] MEDS: rOPINIRole HCL 0.5 MG TABLET PO SCH ×3 (05:24→22:14)
[2023-02-28] MEDS: ENOXAPARIN NA (PORCINE) 40 MG/0.4 ML DISP.SYRIN SQ SCH (09:46)
[2023-02-28] MEDS: FOLIC ACID 1 MG TABLET (FP) PO SCH (09:46)
[2023-02-28] MEDS: ASPIRIN COATED 81 MG TABLET.EC PO SCH (09:46)
[2023-02-28] MEDS: LISINOPRIL 20 MG TABLET PO SCH (09:46)
[2023-02-28] MEDS: NIFEdipine E.R. 30 MG TABLET PO SCH (09:46)
[2023-02-28] MEDS: CARVEDILOL 6.25 MG TABLET (FP) PO SCH ×2 (09:46→22:14)
[2023-02-28] MEDS: AMANTADINE HCL 100 MG TABLET PO SCH ×2 (09:47→22:16)
[2023-02-28 10:08] LABS: BASO % 0.4 % (0-2.0); EOS % 3.3 % (0-4.5); HEMATOCRIT 35.9 % (35.4-49); HEMOGLOBIN 11.2 GM/dL (11.7-16.9); LYMPH % 17.5 % (8-40); MCH 23.5 pg (25.7-33.7); MCHC 31.3 g/dl (32.0-35.9); MEAN CELL VOLUME 75.2 fl (80-96); MONO % 9.2 % (3.8-10.2); NEUT % 69.6 % (42.8-82.8); PLATELET COUNT 149 10^3/uL (134-434); RBC 4.78 M/mm3 (4.00-5.60); RDW 13.4 % (11.9-15.9); WHITE BLOOD COUNT 8.6 K/mm3 (4.0-10.0)
[2023-02-28 10:24] LABS: POTASSIUM 3.7 mmol/L (3.5-5.1)
[2023-02-28 10:26] LABS: ALBUMIN 3.2 g/dl (3.4-5.0); BLOOD UREA NITROGEN 11.4 mg/dL (7-18); CALCIUM 8.7 mg/dL (8.5-10.1); MAGNESIUM 2.3 mg/dL (1.8-2.4)
[2023-02-28 10:29] LABS: CREATININE 0.7 mg/dL (0.55-1.3)
[2023-02-28 10:31] LABS: BILIRUBIN,TOTAL 0.7 mg/dL (0.2-1); TOT PROT 6.4 g/dl (6.4-8.2)
[2023-02-28] MEDS: DAPTOMYCIN 500 MG in SODIUM CHLORIDE 50 ML IVPB SCH (13:30)
[2023-03-01] MEDS: rOPINIRole HCL 0.5 MG TABLET PO SCH ×3 (07:02→21:56)
[2023-03-01] MEDS: CARBIDOPA/LEVODOPA 25/100 TABLET (FP) PO SCH ×3 (07:03→21:56)
[2023-03-01 09:54] LABS: BASO % 0.4 % (0-2.0); EOS % 3.4 % (0-4.5); HEMATOCRIT 35.6 % (35.4-49); HEMOGLOBIN 11.2 GM/dL (11.7-16.9); LYMPH % 20.2 % (8-40); MCH 23.2 pg (25.7-33.7); MCHC 31.5 g/dl (32.0-35.9); MEAN CELL VOLUME 73.6 fl (80-96); MEAN PLT VOLUME 9.7 fl (7.5-11.1); MONO % 9.4 % (3.8-10.2); NEUT % 66.6 % (42.8-82.8); PLATELET COUNT 157 10^3/uL (134-434); RBC 4.84 M/mm3 (4.00-5.60); RDW 13.9 % (11.9-15.9); WHITE BLOOD COUNT 7.9 K/mm3 (4.0-10.0)
[2023-03-01] MEDS: AMANTADINE HCL 100 MG TABLET PO SCH ×2 (10:02→21:56)
[2023-03-01] MEDS: LISINOPRIL 20 MG TABLET PO SCH (10:02)
[2023-03-01] MEDS: ASPIRIN COATED 81 MG TABLET.EC PO SCH (10:03)
[2023-03-01] MEDS: CARVEDILOL 6.25 MG TABLET (FP) PO SCH ×2 (10:03→21:56)
[2023-03-01] MEDS: ENOXAPARIN NA (PORCINE) 40 MG/0.4 ML DISP.SYRIN SQ SCH (10:03)
[2023-03-01] MEDS: FOLIC ACID 1 MG TABLET (FP) PO SCH (10:03)
[2023-03-01 10:04] LABS: POTASSIUM 4.1 mmol/L (3.5-5.1)
[2023-03-01] MEDS: NIFEdipine E.R. 30 MG TABLET PO SCH (10:04)
[2023-03-01 10:13] LABS: CALCIUM 8.7 mg/dL (8.5-10.1)
[2023-03-01 10:14] LABS: MAGNESIUM 2.3 mg/dL (1.8-2.4)
[2023-03-01 10:17] LABS: CREATININE 0.8 mg/dL (0.55-1.3)
[2023-03-01 10:18] LABS: BILIRUBIN,TOTAL 0.7 mg/dL (0.2-1); TOT PROT 6.4 g/dl (6.4-8.2)
[2023-03-02] MEDS ORDERED: rOPINIRole HCL 0.25 MG TABLET PO SCH ×2 (06:08→06:15)
[2023-03-02] MEDS: rOPINIRole HCL 0.5 MG TABLET PO SCH ×3 (06:10→22:33)
[2023-03-02] MEDS: CARBIDOPA/LEVODOPA 25/100 TABLET (FP) PO SCH ×3 (06:22→22:32)
[2023-03-02] MEDS: AMANTADINE HCL 100 MG TABLET PO SCH ×2 (09:48→22:34)
[2023-03-02] MEDS: LISINOPRIL 20 MG TABLET PO SCH (09:48)
[2023-03-02] MEDS: NIFEdipine E.R. 30 MG TABLET PO SCH (09:49)
[2023-03-02] MEDS: FOLIC ACID 1 MG TABLET (FP) PO SCH (09:49)
[2023-03-02] MEDS: ASPIRIN COATED 81 MG TABLET.EC PO SCH (09:49)
[2023-03-02] MEDS: ENOXAPARIN NA (PORCINE) 40 MG/0.4 ML DISP.SYRIN SQ SCH (09:49)
[2023-03-02] MEDS: CARVEDILOL 6.25 MG TABLET (FP) PO SCH ×2 (09:49→22:33)
[2023-03-02 15:51] VITALS: BMI 22.1
[2023-03-03] MEDS: CARBIDOPA/LEVODOPA 25/100 TABLET (FP) PO SCH ×3 (06:36→21:51)
[2023-03-03] MEDS: rOPINIRole HCL 0.5 MG TABLET PO SCH ×3 (06:36→21:51)
[2023-03-03] MEDS: NIFEdipine E.R. 30 MG TABLET PO SCH (09:46)
[2023-03-03] MEDS: ASPIRIN COATED 81 MG TABLET.EC PO SCH (09:46)
[2023-03-03] MEDS: AMANTADINE HCL 100 MG TABLET PO SCH ×2 (09:46→21:52)
[2023-03-03] MEDS: LISINOPRIL 20 MG TABLET PO SCH (09:46)
[2023-03-03] MEDS: FOLIC ACID 1 MG TABLET (FP) PO SCH (09:46)
[2023-03-03] MEDS: CARVEDILOL 6.25 MG TABLET (FP) PO SCH ×2 (09:46→21:51)
[2023-03-03] MEDS: ENOXAPARIN NA (PORCINE) 40 MG/0.4 ML DISP.SYRIN SQ SCH (13:37)
[2023-03-04] MEDS: CARBIDOPA/LEVODOPA 25/100 TABLET (FP) PO SCH ×2 (06:34→15:16)
[2023-03-04] MEDS: rOPINIRole HCL 0.5 MG TABLET PO SCH ×2 (06:34→15:16)
[2023-03-04] MEDS: CARVEDILOL 6.25 MG TABLET (FP) PO SCH (09:50)
[2023-03-04] MEDS: NIFEdipine E.R. 30 MG TABLET PO SCH (09:50)
[2023-03-04] MEDS: ASPIRIN COATED 81 MG TABLET.EC PO SCH (09:50)
[2023-03-04] MEDS: LISINOPRIL 20 MG TABLET PO SCH (09:50)
[2023-03-04] MEDS: FOLIC ACID 1 MG TABLET (FP) PO SCH (09:50)
[2023-03-04] MEDS: AMANTADINE HCL 100 MG TABLET PO SCH (09:51)
[2023-03-04 09:56] VITALS: RESP 20
[2023-03-04] MEDS: ENOXAPARIN NA (PORCINE) 40 MG/0.4 ML DISP.SYRIN SQ SCH (09:58)
[2023-03-04 14:55] VITALS: BP 128/72; PULSE 72; TEMP 98.3
== END 2023-03-04 18:22 | DRG 689 ==
LOC: JER 09:58 → JERBED 18:46 → OBSVTOIN 21:17 → J8W 02-24 17:54
PROVIDERS: ADMIT Internal Medicine; ATTEND Nurse Practitioner Acute Care
DX: N39.0 Urinary tract infection, site not specified (principal); G93.41 Metabolic encephalopathy; M62.82 Rhabdomyolysis; G20 Parkinson's disease; I25.2 Old myocardial infarction; I10 Essential (primary) hypertension; E78.5 Hyperlipidemia, unspecified; I25.10 Atherosclerotic heart disease of native coronary artery without angina pectoris; N40.0 Benign prostatic hyperplasia without lower urinary tract symptoms; N28.1 Cyst of kidney, acquired; R68.0 Hypothermia, not associated with low environmental temperature
CPT/HCPCS: 36415; 70450-TC; 72125-TC; 73521-TC-FY; 80053; 81003; 82550; 82553; 82962; 83735; 84100; 84484; 85025; 87040; 87086; 87186; 87635; 93005; 93010; 97116-GP; 97161-GP; 99285-25; G0378; J0878

== ENCOUNTER 2023-07-19 14:08 | Inpatient (IN) | payer OTHER ==
[2023-07-19 17:03] LABS: BASO % 0.2 % (0-2.0); EOS % 1.2 % (0-4.5); HEMATOCRIT 36.9 % (35.4-49); HEMOGLOBIN 11.6 GM/dL (11.7-16.9); LYMPH % 13.5 % (8-40); MCH 23.3 pg (25.7-33.7); MCHC 31.4 g/dl (32.0-35.9); MEAN CELL VOLUME 74.4 fl (80-96); MEAN PLT VOLUME 9.1 fl (7.5-11.1); MONO % 10.2 % (3.8-10.2); NEUT % 74.9 % (42.8-82.8); PLATELET COUNT 197 10^3/uL (134-434); RBC 4.95 M/mm3 (4.00-5.60); RDW 14.2 % (11.9-15.9); WHITE BLOOD COUNT 9.8 K/mm3 (4.0-10.0)
[2023-07-19 17:26] LABS: POTASSIUM 4.3 mmol/L (3.5-5.1)
[2023-07-19 17:28] LABS: CALCIUM 9.2 mg/dL (8.5-10.1)
[2023-07-19 17:29] LABS: BLOOD UREA NITROGEN 25.6 mg/dL (7-18)
[2023-07-19 17:30] LABS: ALBUMIN 3.4 g/dl (3.4-5.0)
[2023-07-19 17:32] LABS: CREATININE 1.3 mg/dL (0.55-1.3)
[2023-07-19 17:33] LABS: BILIRUBIN,TOTAL 0.6 mg/dL (0.2-1); TOT PROT 7.3 g/dl (6.4-8.2)
[2023-07-19] MEDS ORDERED: ACETAMINOPHEN 1000 MG/100 ML BAG IVPB ONE (18:05)
[2023-07-19] MEDS ORDERED: ACETAMINOPHEN INJECTION 100 ML IVPB ONE (18:22)
[2023-07-19 20:03] LABS: EPI CELLS 2 /uL (0-25.1); HYALINE CASTS 0 /uL (0-3.1); URINE APPEARANCE CLOUDY; URINE BACTERIA 1209 /uL (0-1359); URINE BILIRUBIN NEGATIVE (NEGATIVE); URINE COLOR DK YELLOW; URINE GLUCOSE (UA) NEGATIVE (NEGATIVE); URINE KETONE TRACE (NEGATIVE); URINE LEUK ESTERASE 2+ (NEGATIVE); URINE NITRITE NEGATIVE (NEGATIVE); URINE PROTEIN 1+ (NEGATIVE); URINE RBC 10019 /uL (0-23.9); URINE UROBILINOGEN 0.2 mg/dL (0.2-1.0); URINE WBC 901 /uL (0-25.8)
[2023-07-19] MEDS ORDERED: DAPTOMYCIN 500 MG in SODIUM CHLORIDE 50 ML IVPB ONE (20:27)
[2023-07-20] MEDS ORDERED: CARBIDOPA/LEVODOPA 25/100 TABLET (FP) ONE (06:38)
[2023-07-20] MEDS: CARBIDOPA/LEVODOPA 25/100 TABLET (FP) PO SCH ×3 (06:45→22:27)
[2023-07-20 06:59] LABS: HEMATOCRIT 36.7 % (35.4-49); HEMOGLOBIN 11.3 GM/dL (11.7-16.9); MCH 23.5 pg (25.7-33.7); MCHC 30.9 g/dl (32.0-35.9); MEAN PLT VOLUME 9.4 fl (7.5-11.1); PLATELET COUNT 182 10^3/uL (134-434); RBC 4.83 M/mm3 (4.00-5.60); RDW 14.3 % (11.9-15.9); WHITE BLOOD COUNT 9.1 K/mm3 (4.0-10.0)
[2023-07-20 07:22] LABS: POTASSIUM 4.2 mmol/L (3.5-5.1)
[2023-07-20 07:33] LABS: ALBUMIN 3.4 g/dl (3.4-5.0); BLOOD UREA NITROGEN 27.8 mg/dL (7-18)
[2023-07-20 07:36] LABS: PHOSPHOROUS 3.7 mg/dL (2.5-4.9)
[2023-07-20 07:38] LABS: BILIRUBIN,TOTAL 0.7 mg/dL (0.2-1)
[2023-07-20 08:00] LABS: MAGNESIUM 2.8 mg/dL (1.8-2.4)
[2023-07-20] MEDS: rOPINIRole HCL 0.25 MG TABLET PO SCH ×3 (08:55→22:27)
[2023-07-20] MEDS: TAMSULOSIN HCL 0.4 MG CAP PO SCH (08:55)
[2023-07-20] MEDS: AMANTADINE HCL 100 MG TABLET PO SCH ×2 (09:13→22:33)
[2023-07-20] MEDS: NIFEdipine E.R. 30 MG TABLET PO SCH (09:13)
[2023-07-20] MEDS ORDERED: FUROSEMIDE 40 MG TABLET (FP) PO SCH (10:00)
[2023-07-20 13:36] LABS: RETICULOCYTES 2.41 % (0.5-1.5)
[2023-07-20] MEDS ORDERED: MAGNESIUM OXIDE 400 MG TABLET (FP) PO SCH (14:00)
[2023-07-20] MEDS ORDERED: ATORVASTATIN CA 10 MG TABLET (FP) PO SCH (22:00)
[2023-07-20] MEDS ORDERED: DAPTOMYCIN 500 MG in SODIUM CHLORIDE 50 ML IVPB ONE (22:00)
[2023-07-20] MEDS: LISINOPRIL 20 MG TABLET PO SCH (22:26)
[2023-07-20] MEDS: ATENOLOL 50 MG TABLET (FP) PO SCH (22:27)
[2023-07-21] MEDS: CARBIDOPA/LEVODOPA 25/100 TABLET (FP) PO SCH ×3 (06:47→21:33)
[2023-07-21] MEDS: rOPINIRole HCL 0.25 MG TABLET PO SCH ×3 (06:48→22:43)
[2023-07-21 09:31] LABS: BASO % 0.1 % (0-2.0); EOS % 1.8 % (0-4.5); HEMATOCRIT 34.7 % (35.4-49); HEMOGLOBIN 11.2 GM/dL (11.7-16.9); MCH 24.2 pg (25.7-33.7); MCHC 32.4 g/dl (32.0-35.9); MEAN CELL VOLUME 74.6 fl (80-96); MEAN PLT VOLUME 9.3 fl (7.5-11.1); MONO % 12.9 % (3.8-10.2); NEUT % 66.2 % (42.8-82.8); PLATELET COUNT 189 10^3/uL (134-434); RBC 4.65 M/mm3 (4.00-5.60); RDW 13.8 % (11.9-15.9); WHITE BLOOD COUNT 10.1 K/mm3 (4.0-10.0)
[2023-07-21 09:47] LABS: CALCIUM 8.5 mg/dL (8.5-10.1)
[2023-07-21 09:48] LABS: BLOOD UREA NITROGEN 30.1 mg/dL (7-18)
[2023-07-21 09:50] LABS: CREATININE 1.2 mg/dL (0.55-1.3)
[2023-07-21 09:52] LABS: BILIRUBIN,TOTAL 0.5 mg/dL (0.2-1); TOT PROT 6.7 g/dl (6.4-8.2)
[2023-07-21] MEDS: TAMSULOSIN HCL 0.4 MG CAP PO SCH (10:06)
[2023-07-21] MEDS: AMANTADINE HCL 100 MG TABLET PO SCH ×2 (10:07→21:33)
[2023-07-21] MEDS: NIFEdipine E.R. 30 MG TABLET PO SCH (10:07)
[2023-07-21] MEDS ORDERED: VANCOMYCIN/WATER FOR INJ (PEG) 1,000 MG/200 ML BAG IVPB SCH (12:15)
[2023-07-21] MEDS: DAPTOMYCIN 500 MG in SODIUM CHLORIDE 50 ML IVPB SCH ×2 (12:46→18:02)
[2023-07-21] MEDS: ATENOLOL 50 MG TABLET (FP) PO SCH (21:33)
[2023-07-21] MEDS: LISINOPRIL 20 MG TABLET PO SCH (21:34)
[2023-07-22] MEDS: rOPINIRole HCL 0.25 MG TABLET PO SCH ×3 (05:28→21:55)
[2023-07-22] MEDS: CARBIDOPA/LEVODOPA 25/100 TABLET (FP) PO SCH ×3 (05:28→21:55)
[2023-07-22 09:38] LABS: BASO % 0.6 % (0-2.0); EOS % 1.3 % (0-4.5); HEMATOCRIT 35.5 % (35.4-49); HEMOGLOBIN 10.7 GM/dL (11.7-16.9); MCH 22.9 pg (25.7-33.7); MCHC 30.3 g/dl (32.0-35.9); MEAN CELL VOLUME 75.5 fl (80-96); MEAN PLT VOLUME 9.1 fl (7.5-11.1); MONO % 9.8 % (3.8-10.2); NEUT % 78.3 % (42.8-82.8); PLATELET COUNT 188 10^3/uL (134-434); RDW 14.1 % (11.9-15.9); WHITE BLOOD COUNT 12.1 K/mm3 (4.0-10.0)
[2023-07-22 10:00] LABS: POTASSIUM 4.1 mmol/L (3.5-5.1)
[2023-07-22 10:04] LABS: BLOOD UREA NITROGEN 26.4 mg/dL (7-18); CALCIUM 8.8 mg/dL (8.5-10.1); MAGNESIUM 2.7 mg/dL (1.8-2.4)
[2023-07-22 10:08] LABS: TOT PROT 6.6 g/dl (6.4-8.2)
[2023-07-22 10:09] LABS: BILIRUBIN,TOTAL 0.7 mg/dL (0.2-1)
[2023-07-22] MEDS: TAMSULOSIN HCL 0.4 MG CAP PO SCH (10:48)
[2023-07-22] MEDS: NIFEdipine E.R. 30 MG TABLET PO SCH (10:49)
[2023-07-22] MEDS: AMANTADINE HCL 100 MG TABLET PO SCH ×2 (10:49→21:55)
[2023-07-22] MEDS ORDERED: IRON SUCROSE INJECTION 200 MG in SODIUM CHLORIDE 90 ML IVPB ONE (12:00)
[2023-07-22] MEDS ORDERED: ACETAMINOPHEN 500 MG TABLET (FP) PO PRN (17:52)
[2023-07-22] MEDS: DAPTOMYCIN 500 MG in SODIUM CHLORIDE 50 ML IVPB SCH (17:55)
[2023-07-22] MEDS: LISINOPRIL 20 MG TABLET PO SCH (21:56)
[2023-07-22] MEDS: ATENOLOL 50 MG TABLET (FP) PO SCH (21:56)
[2023-07-23] MEDS: rOPINIRole HCL 0.25 MG TABLET PO SCH ×3 (05:37→23:25)
[2023-07-23] MEDS: CARBIDOPA/LEVODOPA 25/100 TABLET (FP) PO SCH ×3 (05:37→23:23)
[2023-07-23 10:13] LABS: BASO % 0.3 % (0-2.0); HEMATOCRIT 34.6 % (35.4-49); HEMOGLOBIN 10.6 GM/dL (11.7-16.9); MCH 23.1 pg (25.7-33.7); MCHC 30.6 g/dl (32.0-35.9); MEAN CELL VOLUME 75.6 fl (80-96); MEAN PLT VOLUME 9.2 fl (7.5-11.1); MONO % 10.5 % (3.8-10.2); NEUT % 74.2 % (42.8-82.8); PLATELET COUNT 185 10^3/uL (134-434); RBC 4.58 M/mm3 (4.00-5.60); RDW 14.1 % (11.9-15.9); WHITE BLOOD COUNT 11.6 K/mm3 (4.0-10.0)
[2023-07-23] MEDS: NIFEdipine E.R. 30 MG TABLET PO SCH (10:15)
[2023-07-23] MEDS: TAMSULOSIN HCL 0.4 MG CAP PO SCH (10:15)
[2023-07-23] MEDS: AMANTADINE HCL 100 MG TABLET PO SCH ×2 (10:16→23:25)
[2023-07-23 10:35] LABS: CHLORIDE 107 mmol/L (98-107); POTASSIUM 4.2 mmol/L (3.5-5.1); SODIUM 140 mmol/L (136-145)
[2023-07-23 11:00] LABS: ANION GAP 7 mmol/L (4-13); CALCIUM 8.6 mg/dL (8.5-10.1); CO2 26 mmol/L (21-32); GLUCOSE,RANDOM 125 mg/dL (74-106); MAGNESIUM 2.7 mg/dL (1.8-2.4)
[2023-07-23 11:01] LABS: BLOOD UREA NITROGEN 29.4 mg/dL (7-18)
[2023-07-23 11:03] LABS: SGPT/ALT < 6 U/L (13-61)
[2023-07-23 11:04] LABS: SGOT/AST 12 U/L (15-37)
[2023-07-23 11:05] LABS: BILIRUBIN,TOTAL 0.6 mg/dL (0.2-1); TOT PROT 6.7 g/dl (6.4-8.2)
[2023-07-23 11:06] LABS: ALK PHOS 89 U/L (45-117)
[2023-07-23] MEDS: DAPTOMYCIN 500 MG in SODIUM CHLORIDE 50 ML IVPB SCH (17:13)
[2023-07-23] MEDS: ATENOLOL 50 MG TABLET (FP) PO SCH (23:24)
[2023-07-23] MEDS: LISINOPRIL 20 MG TABLET PO SCH (23:24)
[2023-07-24] MEDS: CARBIDOPA/LEVODOPA 25/100 TABLET (FP) PO SCH ×3 (07:09→22:48)
[2023-07-24] MEDS: rOPINIRole HCL 0.25 MG TABLET PO SCH ×3 (07:09→22:48)
[2023-07-24] MEDS: DAPTOMYCIN 500 MG in SODIUM CHLORIDE 50 ML IVPB SCH ×2 (08:30→17:20)
[2023-07-24 09:50] LABS: BASO % 0.4 % (0-2.0); EOS % 2.8 % (0-4.5); HEMATOCRIT 33.8 % (35.4-49); HEMOGLOBIN 10.7 GM/dL (11.7-16.9); LYMPH % 9.5 % (8-40); MCH 23.7 pg (25.7-33.7); MCHC 31.7 g/dl (32.0-35.9); MEAN CELL VOLUME 74.7 fl (80-96); MEAN PLT VOLUME 9.1 fl (7.5-11.1); MONO % 8.8 % (3.8-10.2); NEUT % 78.5 % (42.8-82.8); PLATELET COUNT 184 10^3/uL (134-434); RBC 4.52 M/mm3 (4.00-5.60); RDW 13.7 % (11.9-15.9); WHITE BLOOD COUNT 10.1 K/mm3 (4.0-10.0)
[2023-07-24] MEDS: TAMSULOSIN HCL 0.4 MG CAP PO SCH (10:02)
[2023-07-24] MEDS: NIFEdipine E.R. 30 MG TABLET PO SCH (10:02)
[2023-07-24] MEDS: AMANTADINE HCL 100 MG TABLET PO SCH ×2 (10:02→22:49)
[2023-07-24 10:25] LABS: ALBUMIN 2.8 g/dl (3.4-5.0); ALK PHOS 85 U/L (45-117); ANION GAP 6 mmol/L (4-13); BILIRUBIN,TOTAL 0.6 mg/dL (0.2-1); BLOOD UREA NITROGEN 25.8 mg/dL (7-18); CALCIUM 8.8 mg/dL (8.5-10.1); CHLORIDE 110 mmol/L (98-107); CO2 26 mmol/L (21-32); CREATININE 0.8 mg/dL (0.55-1.3); GLUCOSE,RANDOM 115 mg/dL (74-106); MAGNESIUM 2.6 mg/dL (1.8-2.4); POTASSIUM 4.2 mmol/L (3.5-5.1); SGOT/AST 12 U/L (15-37); SGPT/ALT < 6 U/L (13-61); SODIUM 142 mmol/L (136-145); TOT PROT 6.7 g/dl (6.4-8.2)
[2023-07-24 22:39] VITALS: RESP 18
[2023-07-24] MEDS: LISINOPRIL 20 MG TABLET PO SCH (22:48)
[2023-07-24] MEDS: ATENOLOL 50 MG TABLET (FP) PO SCH (22:48)
[2023-07-25] MEDS: CARBIDOPA/LEVODOPA 25/100 TABLET (FP) PO SCH ×3 (05:49→22:12)
[2023-07-25] MEDS: rOPINIRole HCL 0.25 MG TABLET PO SCH ×3 (05:50→22:13)
[2023-07-25 09:54] LABS: HEMATOCRIT 33.5 % (35.4-49); HEMOGLOBIN 10.7 GM/dL (11.7-16.9); MCH 24.1 pg (25.7-33.7); MEAN CELL VOLUME 75.2 fl (80-96); MEAN PLT VOLUME 9.3 fl (7.5-11.1); PLATELET COUNT 204 10^3/uL (134-434); RBC 4.45 M/mm3 (4.00-5.60); WHITE BLOOD COUNT 9.2 K/mm3 (4.0-10.0)
[2023-07-25 10:02] LABS: CHLORIDE 110 mmol/L (98-107); POTASSIUM 4.3 mmol/L (3.5-5.1); SODIUM 143 mmol/L (136-145)
[2023-07-25 10:19] LABS: ALBUMIN 2.7 g/dl (3.4-5.0); CALCIUM 8.5 mg/dL (8.5-10.1); MAGNESIUM 2.5 mg/dL (1.8-2.4)
[2023-07-25 10:20] LABS: ANION GAP 7 mmol/L (4-13); CO2 26 mmol/L (21-32); GLUCOSE,RANDOM 103 mg/dL (74-106)
[2023-07-25 10:23] LABS: CREATININE 0.9 mg/dL (0.55-1.3); SGPT/ALT < 6 U/L (13-61)
[2023-07-25 10:24] LABS: BILIRUBIN,TOTAL 0.8 mg/dL (0.2-1); SGOT/AST 10 U/L (15-37); TOT PROT 6.4 g/dl (6.4-8.2)
[2023-07-25 10:25] LABS: ALK PHOS 81 U/L (45-117)
[2023-07-25] MEDS: TAMSULOSIN HCL 0.4 MG CAP PO SCH (10:58)
[2023-07-25] MEDS: NIFEdipine E.R. 30 MG TABLET PO SCH (10:58)
[2023-07-25] MEDS: AMANTADINE HCL 100 MG TABLET PO SCH ×2 (10:58→22:12)
[2023-07-25 11:33] LABS: ANISOCYTOSIS 0; MACROCYTOSIS 0
[2023-07-25] MEDS: DAPTOMYCIN 500 MG in SODIUM CHLORIDE 50 ML IVPB SCH (17:35)
[2023-07-25] MEDS: LISINOPRIL 20 MG TABLET PO SCH (22:13)
[2023-07-25] MEDS: ATENOLOL 50 MG TABLET (FP) PO SCH (22:13)
[2023-07-26] MEDS: rOPINIRole HCL 0.25 MG TABLET PO SCH ×3 (06:54→22:54)
[2023-07-26] MEDS: CARBIDOPA/LEVODOPA 25/100 TABLET (FP) PO SCH ×3 (06:54→22:56)
[2023-07-26] MEDS: TAMSULOSIN HCL 0.4 MG CAP PO SCH (08:56)
[2023-07-26 09:00] LABS: BASO % 0.3 % (0-2.0); EOS % 4.7 % (0-4.5); HEMATOCRIT 34.2 % (35.4-49); HEMOGLOBIN 11.2 GM/dL (11.7-16.9); LYMPH % 12.3 % (8-40); MCH 24.2 pg (25.7-33.7); MCHC 32.6 g/dl (32.0-35.9); MEAN CELL VOLUME 74.3 fl (80-96); MEAN PLT VOLUME 9.2 fl (7.5-11.1); MONO % 9.1 % (3.8-10.2); NEUT % 73.6 % (42.8-82.8); PLATELET COUNT 186 10^3/uL (134-434); RBC 4.61 M/mm3 (4.00-5.60); RDW 13.9 % (11.9-15.9)
[2023-07-26 09:02] LABS: WHITE BLOOD COUNT 11.3 K/mm3 (4.0-10.0)
[2023-07-26 09:28] LABS: POTASSIUM 4.7 mmol/L (3.5-5.1)
[2023-07-26 09:32] LABS: ALBUMIN 2.8 g/dl (3.4-5.0); BLOOD UREA NITROGEN 28.4 mg/dL (7-18); CALCIUM 9.1 mg/dL (8.5-10.1)
[2023-07-26 09:35] LABS: CREATININE 0.8 mg/dL (0.55-1.3)
[2023-07-26 09:37] LABS: BILIRUBIN,TOTAL 0.7 mg/dL (0.2-1); TOT PROT 6.8 g/dl (6.4-8.2)
[2023-07-26 10:47] LABS: PLATELET ESTIMATE ADEQUATE
[2023-07-26] MEDS: AMANTADINE HCL 100 MG TABLET PO SCH ×2 (10:47→22:56)
[2023-07-26] MEDS: NIFEdipine E.R. 30 MG TABLET PO SCH (10:47)
[2023-07-26] MEDS: DAPTOMYCIN 500 MG in SODIUM CHLORIDE 50 ML IVPB SCH (18:12)
[2023-07-26] MEDS: LISINOPRIL 20 MG TABLET PO SCH (22:55)
[2023-07-26] MEDS: ATENOLOL 50 MG TABLET (FP) PO SCH (22:55)
[2023-07-27] MEDS: rOPINIRole HCL 0.25 MG TABLET PO SCH ×2 (06:52→13:30)
[2023-07-27] MEDS: CARBIDOPA/LEVODOPA 25/100 TABLET (FP) PO SCH ×2 (06:53→13:32)
[2023-07-27] MEDS: TAMSULOSIN HCL 0.4 MG CAP PO SCH (09:46)
[2023-07-27] MEDS: NIFEdipine E.R. 30 MG TABLET PO SCH (09:46)
[2023-07-27] MEDS: AMANTADINE HCL 100 MG TABLET PO SCH (09:48)
[2023-07-27 14:00] VITALS: BMI 21.7
[2023-07-27 15:01] VITALS: BP 121/65; PULSE 72; TEMP 98.3
== END 2023-07-27 20:02 | DRG 689 ==
LOC: JER 14:08 → JERBED 20:54 → J8W 07-20 11:12
PROVIDERS: ADMIT Internal Medicine; ATTEND Nurse Practitioner Family
DX: N39.0 Urinary tract infection, site not specified (principal); G93.41 Metabolic encephalopathy; I50.30 Unspecified diastolic (congestive) heart failure; I25.2 Old myocardial infarction; I10 Essential (primary) hypertension; I25.10 Atherosclerotic heart disease of native coronary artery without angina pectoris; N40.0 Benign prostatic hyperplasia without lower urinary tract symptoms; Z86.73 Personal history of transient ischemic attack (TIA), and cerebral infarction without residual deficits; E78.5 Hyperlipidemia, unspecified; G20.A1 Parkinson's disease without dyskinesia, without mention of fluctuations; F02.80 Dementia in other diseases classified elsewhere, unspecified severity, without behavioral disturbance, psychotic disturbance, mood disturbance, and anxiety; D50.9 Iron deficiency anemia, unspecified; N28.1 Cyst of kidney, acquired; N31.9 Neuromuscular dysfunction of bladder, unspecified; I11.0 Hypertensive heart disease with heart failure
CPT/HCPCS: 0241U-QW; 36415; 70450-TC; 71045-TC-FY; 72125-TC; 72131-TC; 72170-TC-FY; 72192-TC; 80048; 80053; 81003; 82550; 82728; 83010; 83540; 83550; 83615; 83735; 83880; 84100; 84466; 84484; 85025; 85027; 85045; 87086; 87186; 87635; 93005; 93010; 97116-GP; 97161-GP; 99285-25; J0131; J0878; J1756

== ENCOUNTER 2023-08-24 16:22 | Observation (INO) | payer OTHER ==
[2023-08-24 17:22] VITALS: BMI 23.1
[2023-08-24 19:14] LABS: BASO % 0.5 % (0-2.0); HEMOGLOBIN 10.5 GM/dL (11.7-16.9); LYMPH % 11.2 % (8-40); MCH 23.6 pg (25.7-33.7); MCHC 31.7 g/dl (32.0-35.9); MEAN CELL VOLUME 74.3 fl (80-96); MEAN PLT VOLUME 9.3 fl (7.5-11.1); MONO % 8.7 % (3.8-10.2); NEUT % 76.6 % (42.8-82.8); PLATELET COUNT 171 10^3/uL (134-434); RBC 4.45 M/mm3 (4.00-5.60); RDW 14.8 % (11.9-15.9); WHITE BLOOD COUNT 10.3 K/mm3 (4.0-10.0)
[2023-08-24 19:21] LABS: INR 1.1 (0.83-1.09); PROTHROMBIN TIME (PATIENT) 12.8 SEC (9.7-13.0)
[2023-08-24 19:24] LABS: ACTIVATED PTT 33.8 SECONDS (25.2-36.5)
[2023-08-24 19:39] LABS: POTASSIUM 4.8 mmol/L (3.5-5.1)
[2023-08-24 19:44] LABS: CALCIUM 9.2 mg/dL (8.5-10.1)
[2023-08-24 19:45] LABS: ALBUMIN 3.4 g/dl (3.4-5.0)
[2023-08-24 19:49] LABS: BILIRUBIN,TOTAL 0.4 mg/dL (0.2-1); TOT PROT 7.1 g/dl (6.4-8.2)
[2023-08-25] MEDS ORDERED: ACETAMINOPHEN 325 MG TABLET (FP) PO PRN ×2 (00:51→17:19)
[2023-08-25] MEDS: ATORVASTATIN CA 10 MG TABLET (FP) PO ONE (01:56)
[2023-08-25] MEDS: ATENOLOL 50 MG TABLET (FP) PO ONE (01:56)
[2023-08-25] MEDS: CARBIDOPA/LEVODOPA 25/100 TABLET (FP) PO ONE (01:56)
[2023-08-25] MEDS: AMANTADINE HCL 100 MG TABLET PO SCH (01:56)
[2023-08-25] MEDS: rOPINIRole HCL 0.5 MG TABLET PO ONE (01:56)
[2023-08-25] MEDS: ACETAMINOPHEN 325 MG TABLET (FP) PO PRN (05:46)
[2023-08-25] MEDS: rOPINIRole HCL 0.5 MG TABLET PO SCH (05:46)
[2023-08-25 07:20] LABS: BASO % 0.6 % (0-2.0); HEMATOCRIT 33.8 % (35.4-49); HEMOGLOBIN 10.4 GM/dL (11.7-16.9); LYMPH % 13.9 % (8-40); MCH 23.2 pg (25.7-33.7); MCHC 30.7 g/dl (32.0-35.9); MEAN CELL VOLUME 75.4 fl (80-96); MEAN PLT VOLUME 9.6 fl (7.5-11.1); MONO % 9.6 % (3.8-10.2); NEUT % 70.9 % (42.8-82.8); PLATELET COUNT 143 10^3/uL (134-434); RBC 4.48 M/mm3 (4.00-5.60); RDW 14.8 % (11.9-15.9); WHITE BLOOD COUNT 8.8 K/mm3 (4.0-10.0)
[2023-08-25 07:41] LABS: CHLORIDE 110 mmol/L (98-107); POTASSIUM 4.4 mmol/L (3.5-5.1); SODIUM 146 mmol/L (136-145)
[2023-08-25 07:55] LABS: CALCIUM 9.3 mg/dL (8.5-10.1)
[2023-08-25 07:56] LABS: ANION GAP 8 mmol/L (4-13); BLOOD UREA NITROGEN 22.8 mg/dL (7-18); CO2 28 mmol/L (21-32); GLUCOSE,RANDOM 112 mg/dL (74-106); MAGNESIUM 2.8 mg/dL (1.8-2.4)
[2023-08-25 07:59] LABS: CREATININE 0.8 mg/dL (0.55-1.3); PHOSPHOROUS 3.2 mg/dL (2.5-4.9); SGOT/AST 14 U/L (15-37)
[2023-08-25 08:00] LABS: BILIRUBIN,TOTAL 0.6 mg/dL (0.2-1); TOT PROT 6.4 g/dl (6.4-8.2)
[2023-08-25 08:02] LABS: ALK PHOS 95 U/L (45-117)
[2023-08-25 08:18] LABS: SGPT/ALT < 6 U/L (13-61)
[2023-08-25] MEDS ORDERED: FAMOTIDINE 40 MG TABLET PO SCH (10:00)
[2023-08-25] MEDS: NIFEdipine E.R. 30 MG TABLET PO SCH (11:14)
[2023-08-25] MEDS: FAMOTIDINE 20 MG TABLET PO SCH (11:14)
[2023-08-25] MEDS: FOLIC ACID 1 MG TABLET (FP) PO SCH (11:14)
[2023-08-25] MEDS: ASPIRIN COATED 81 MG TABLET.EC PO SCH (11:14)
[2023-08-25] MEDS: ENOXAPARIN NA (PORCINE) 40 MG/0.4 ML DISP.SYRIN SQ SCH (11:15)
[2023-08-25] MEDS: TAMSULOSIN HCL 0.4 MG CAP PO SCH (11:15)
[2023-08-25] MEDS: LISINOPRIL 10 MG TABLET PO SCH (11:15)
[2023-08-25] MEDS: CARBIDOPA/LEVODOPA 25/100 TABLET (FP) PO SCH (12:57)
[2023-08-25] MEDS: SODIUM CHLORIDE 1,000 ML IV SCH (12:58)
[2023-08-25] MEDS: ACETAMINOPHEN 325 MG TABLET (FP) PO SCH (17:26)
[2023-08-25] MEDS ORDERED: ACETAMINOPHEN 325 MG TABLET (FP) PO SCH (17:30)
[2023-08-25] MEDS ORDERED: ATENOLOL 50 MG TABLET (FP) PO SCH (22:00)
[2023-08-25] MEDS: ATENOLOL 25 MG TABLET (FP) PO SCH (22:04)
[2023-08-25] MEDS: ATORVASTATIN CA 10 MG TABLET (FP) PO SCH (22:04)
[2023-08-26 09:08] LABS: BASO % 0.5 % (0-2.0); EOS % 6.1 % (0-4.5); HEMATOCRIT 32.4 % (35.4-49); HEMOGLOBIN 10.6 GM/dL (11.7-16.9); LYMPH % 16.3 % (8-40); MCH 24.2 pg (25.7-33.7); MCHC 32.8 g/dl (32.0-35.9); MEAN CELL VOLUME 73.9 fl (80-96); MONO % 10.1 % (3.8-10.2); PLATELET COUNT 148 10^3/uL (134-434); RBC 4.39 M/mm3 (4.00-5.60); RDW 14.8 % (11.9-15.9); WHITE BLOOD COUNT 7.9 K/mm3 (4.0-10.0)
[2023-08-26 09:29] LABS: CHLORIDE 109 mmol/L (98-107); POTASSIUM 4.5 mmol/L (3.5-5.1); SODIUM 141 mmol/L (136-145)
[2023-08-26 09:34] LABS: GLUCOSE,RANDOM 86 mg/dL (74-106)
[2023-08-26 09:35] LABS: ALBUMIN 3.1 g/dl (3.4-5.0); ANION GAP 4 mmol/L (4-13); BLOOD UREA NITROGEN 16.3 mg/dL (7-18); CALCIUM 8.4 mg/dL (8.5-10.1); CO2 28 mmol/L (21-32)
[2023-08-26 09:36] LABS: MAGNESIUM 2.1 mg/dL (1.8-2.4)
[2023-08-26 09:38] LABS: CREATININE 0.8 mg/dL (0.55-1.3); SGOT/AST 14 U/L (15-37); SGPT/ALT < 6 U/L (13-61)
[2023-08-26 09:39] LABS: TOT PROT 6.5 g/dl (6.4-8.2)
[2023-08-26 09:40] LABS: ALK PHOS 102 U/L (45-117)
[2023-08-26 09:41] LABS: BILIRUBIN,TOTAL 0.8 mg/dL (0.2-1)
[2023-08-26] MEDS: LACTATED RINGERS SOLUTION 1,000 ML/1,000 ML INFUS.BAG IV SCH (16:39)
[2023-08-27 07:56] LABS: HEMATOCRIT 33.4 % (35.4-49); HEMOGLOBIN 10.4 GM/dL (11.7-16.9); MCH 23.3 pg (25.7-33.7); MEAN CELL VOLUME 75.1 fl (80-96); MEAN PLT VOLUME 9.8 fl (7.5-11.1); PLATELET COUNT 145 10^3/uL (134-434); RBC 4.45 M/mm3 (4.00-5.60); RDW 14.5 % (11.9-15.9); WHITE BLOOD COUNT 8.5 K/mm3 (4.0-10.0)
[2023-08-27 08:21] LABS: CHLORIDE 106 mmol/L (98-107); POTASSIUM 4.2 mmol/L (3.5-5.1); SODIUM 142 mmol/L (136-145)
[2023-08-27 08:26] LABS: CALCIUM 8.4 mg/dL (8.5-10.1)
[2023-08-27 08:27] LABS: ANION GAP 7 mmol/L (4-13); BLOOD UREA NITROGEN 13.9 mg/dL (7-18); CO2 29 mmol/L (21-32); GLUCOSE,RANDOM 87 mg/dL (74-106); MAGNESIUM 2.3 mg/dL (1.8-2.4)
[2023-08-27 08:29] LABS: CREATININE 0.8 mg/dL (0.55-1.3)
[2023-08-27 08:30] LABS: BILIRUBIN,TOTAL 0.9 mg/dL (0.2-1); SGOT/AST 13 U/L (15-37)
[2023-08-27 08:31] LABS: TOT PROT 6.6 g/dl (6.4-8.2)
[2023-08-27 08:32] LABS: ALK PHOS 97 U/L (45-117)
[2023-08-27 08:42] LABS: SGPT/ALT < 6 U/L (13-61)
[2023-08-27] MEDS: POLYETHYLENE GLYCOL (HEALTHYLAX) 3350 17 GM PACKET PO SCH (14:55)
[2023-08-27] MEDS: DOCUSATE SODIUM 100 MG CAPSULE (FP) PO SCH (14:55)
[2023-08-28 04:44] VITALS: RESP 18
[2023-08-28 18:36] VITALS: BP 152/63; PULSE 66; TEMP 98.4
== END 2023-08-29 07:28 | disposition home health service (06) ==
LOC: JER 16:22 → JERBED 23:32 → J4S 08-25 02:03
PROVIDERS: ADMIT Internal Medicine; ATTEND Internal Medicine
PROC: 3E023GC Introduction of Other Therapeutic Substance into Muscle, Percutaneous Approach (ICD-10-PCS; principal; 2023-08-24)
PROC: 3E0337Z Introduction of Electrolytic and Water Balance Substance into Peripheral Vein, Percutaneous Approach (ICD-10-PCS; 2023-08-24)
DX: S52.502A Unspecified fracture of the lower end of left radius, initial encounter for closed fracture (principal); S52.202A Unspecified fracture of shaft of left ulna, initial encounter for closed fracture; W18.39XA Other fall on same level, initial encounter; Y93.89 Activity, other specified; I25.10 Atherosclerotic heart disease of native coronary artery without angina pectoris; I11.0 Hypertensive heart disease with heart failure; Y92.003 Bedroom of unspecified non-institutional (private) residence as the place of occurrence of the external cause; N28.1 Cyst of kidney, acquired; G20.A1 Parkinson's disease without dyskinesia, without mention of fluctuations; F02.80 Dementia in other diseases classified elsewhere, unspecified severity, without behavioral disturbance, psychotic disturbance, mood disturbance, and anxiety; Z91.81 History of falling; Z87.440 Personal history of urinary (tract) infections; I21.4 Non-ST elevation (NSTEMI) myocardial infarction; Z86.73 Personal history of transient ischemic attack (TIA), and cerebral infarction without residual deficits; E78.5 Hyperlipidemia, unspecified; N40.0 Benign prostatic hyperplasia without lower urinary tract symptoms; N17.9 Acute kidney failure, unspecified; Z87.891 Personal history of nicotine dependence; Z88.0 Allergy status to penicillin
CPT/HCPCS: 36415; 70450-TC; 71045-TC-FY; 72125-TC; 73090-TC-LT-FY; 73110-TC-LT-FY; 73130-TC-LT-FY; 80053; 82962; 83735; 84100; 84443; 84484; 85025; 85027; 85610; 85730; 86850; 86900; 86901; 87635; 93005; 93010; 93306-TC; 96360; 96361; 96372; 97116-GP; 97161-GP; 99285-25; G0378

== ENCOUNTER 2023-08-30 13:31 | Inpatient (IN) | payer OTHER ==
[2023-08-30] MEDS ORDERED: ACETAMINOPHEN 325 MG TABLET (FP) ONE (15:10)
[2023-08-30] MEDS: ACETAMINOPHEN 325 MG TABLET (FP) PO ONE (15:14)
[2023-08-30] MEDS: SODIUM CHLORIDE 1,000 ML IV STA (18:22)
[2023-08-30 18:23] LABS: BASO % 0.4 % (0-2.0); EOS % 3.5 % (0-4.5); HEMATOCRIT 33.1 % (35.4-49); HEMOGLOBIN 10.5 GM/dL (11.7-16.9); LYMPH % 8.3 % (8-40); MCH 23.7 pg (25.7-33.7); MCHC 31.8 g/dl (32.0-35.9); MEAN CELL VOLUME 74.5 fl (80-96); MEAN PLT VOLUME 9.1 fl (7.5-11.1); MONO % 5.6 % (3.8-10.2); NEUT % 82.2 % (42.8-82.8); PLATELET COUNT 176 10^3/uL (134-434); RBC 4.45 M/mm3 (4.00-5.60); RDW 14.8 % (11.9-15.9); WHITE BLOOD COUNT 10.1 K/mm3 (4.0-10.0)
[2023-08-30 18:35] LABS: POTASSIUM 5.6 mmol/L (3.5-5.1)
[2023-08-30 18:38] LABS: BLOOD UREA NITROGEN 28.6 mg/dL (7-18); CALCIUM 8.6 mg/dL (8.5-10.1)
[2023-08-30 18:39] LABS: ACTIVATED PTT 26.6 SECONDS (25.2-36.5); INR 1.1 (0.83-1.09); PROTHROMBIN TIME (PATIENT) 12.8 SEC (9.7-13.0)
[2023-08-30 18:41] LABS: CREATININE 1.1 mg/dL (0.55-1.3)
[2023-08-30 18:43] LABS: TOT PROT 6.7 g/dl (6.4-8.2)
[2023-08-30 23:19] LABS: BLOOD UREA NITROGEN 27.6 mg/dL (7-18); CALCIUM 8.6 mg/dL (8.5-10.1)
[2023-08-31] MEDS ORDERED: ACETAMINOPHEN 325 MG TABLET (FP) PO PRN (01:38)
[2023-08-31] MEDS: rOPINIRole HCL 0.25 MG TABLET PO SCH (06:20)
[2023-08-31 06:55] LABS: HEMATOCRIT 33.1 % (35.4-49); HEMOGLOBIN 10.3 GM/dL (11.7-16.9); MCH 23.2 pg (25.7-33.7); MCHC 31.1 g/dl (32.0-35.9); MEAN CELL VOLUME 74.7 fl (80-96); MEAN PLT VOLUME 9.2 fl (7.5-11.1); PLATELET COUNT 170 10^3/uL (134-434); RBC 4.43 M/mm3 (4.00-5.60); RDW 14.5 % (11.9-15.9); WHITE BLOOD COUNT 9.9 K/mm3 (4.0-10.0)
[2023-08-31 07:04] LABS: CALCIUM 8.2 mg/dL (8.5-10.1)
[2023-08-31 07:05] LABS: BLOOD UREA NITROGEN 23.6 mg/dL (7-18); MAGNESIUM 2.2 mg/dL (1.8-2.4)
[2023-08-31 07:08] LABS: CREATININE 0.9 mg/dL (0.55-1.3); PHOSPHOROUS 2.7 mg/dL (2.5-4.9)
[2023-08-31 07:09] LABS: TOT PROT 6.9 g/dl (6.4-8.2)
[2023-08-31] MEDS: TAMSULOSIN HCL 0.4 MG CAP PO SCH (08:44)
[2023-08-31] MEDS: FAMOTIDINE 40 MG TABLET PO SCH (09:02)
[2023-08-31] MEDS: DOCUSATE SODIUM 100 MG CAPSULE (FP) PO SCH (09:02)
[2023-08-31] MEDS: AMANTADINE HCL 100 MG TABLET PO SCH ×2 (09:02→21:38)
[2023-08-31] MEDS ORDERED: TAMSULOSIN HCL 0.4 MG CAP PO SCH (10:00)
[2023-08-31] MEDS ORDERED: BUPIVACAINE HCL/PF 0.5% (5MG/ML) 10 ML VIAL ONE (11:09)
[2023-08-31] MEDS ORDERED: CARBIDOPA/LEVODOPA 25/100 TABLET (FP) PO SCH (12:00)
[2023-08-31] MEDS: ceFAZolin SODIUM 1 GM VIAL IVPB ONE ×2 (12:15)
[2023-08-31] MEDS ORDERED: ONDANSETRON 4 MG/2 ML VIAL ONE (12:18)
[2023-08-31] MEDS ORDERED: DEXAMETHASONE SOD PHOSPHATE 4 MG/1 ML VIAL ONE (12:18)
[2023-08-31] MEDS ORDERED: MIDAZOLAM HCL 2 MG/2 ML SINGLE DOSE VIAL ONE (13:19)
[2023-08-31] MEDS ORDERED: LACTATED RINGERS SOLUTION 1,000 ML IV SCH (14:00)
[2023-08-31] MEDS ORDERED: LABETALOL HCL 5 MG/1 ML (100MG/20 ML VIAL) ONE (15:50)
[2023-08-31] MEDS ORDERED: LABETALOL HCL 5 MG/1 ML (100MG/20 ML VIAL) IVPUSH ONE (15:51)
[2023-08-31] MEDS: LABETALOL HCL 5 MG/1 ML (100MG/20 ML VIAL) IVPUSH ONE (15:55)
[2023-08-31] MEDS: LACTATED RINGERS SOLUTION 1,000 ML IV SCH (17:16)
[2023-08-31] MEDS: CEFAZOLIN SODIUM 2 GM in DEXTROSE 5%-WATER 100 ML IVPB SCH (17:31)
[2023-08-31] MEDS: CARBIDOPA/LEVODOPA 25/100 TABLET (FP) PO SCH (17:31)
[2023-08-31] MEDS: ATORVASTATIN CA 10 MG TABLET (FP) PO SCH (21:38)
[2023-08-31] MEDS: ATENOLOL 25 MG TABLET (FP) PO SCH (21:38)
[2023-08-31] MEDS ORDERED: ATORVASTATIN CA 10 MG TABLET (FP) PO SCH (22:00)
[2023-08-31] MEDS ORDERED: ATENOLOL 25 MG TABLET (FP) PO SCH (22:00)
[2023-09-01 08:21] LABS: HEMATOCRIT 27.5 % (35.4-49); HEMOGLOBIN 8.7 GM/dL (11.7-16.9); MCH 23.5 pg (25.7-33.7); MCHC 31.7 g/dl (32.0-35.9); MEAN PLT VOLUME 9.5 fl (7.5-11.1); PLATELET COUNT 156 10^3/uL (134-434); RBC 3.71 M/mm3 (4.00-5.60); RDW 14.4 % (11.9-15.9); WHITE BLOOD COUNT 8.2 K/mm3 (4.0-10.0)
[2023-09-01 09:16] LABS: POTASSIUM 4.5 mmol/L (3.5-5.1)
[2023-09-01 09:23] LABS: ALBUMIN 2.6 g/dl (3.4-5.0); BLOOD UREA NITROGEN 24.7 mg/dL (7-18); CALCIUM 8.5 mg/dL (8.5-10.1); MAGNESIUM 2.4 mg/dL (1.8-2.4)
[2023-09-01 09:25] LABS: CREATININE 0.8 mg/dL (0.55-1.3)
[2023-09-01 09:27] LABS: BILIRUBIN,TOTAL 0.8 mg/dL (0.2-1); TOT PROT 5.9 g/dl (6.4-8.2)
[2023-09-01 09:41] LABS: ANISOCYTOSIS 0; MACROCYTOSIS 0
[2023-09-01] MEDS: FAMOTIDINE 20 MG TABLET PO SCH (11:00)
[2023-09-01] MEDS: FOLIC ACID 1 MG TABLET (FP) PO SCH (11:00)
[2023-09-01] MEDS: DOCUSATE SODIUM 100 MG CAPSULE (FP) PO SCH (11:00)
[2023-09-01] MEDS: TAMSULOSIN HCL 0.4 MG CAP PO SCH (11:00)
[2023-09-01] MEDS: rOPINIRole HCL 0.25 MG TABLET PO SCH (13:59)
[2023-09-01] MEDS: ENOXAPARIN NA (PORCINE) 40 MG/0.4 ML DISP.SYRIN SQ SCH (14:00)
[2023-09-02] MEDS: LISINOPRIL 10 MG TABLET PO SCH (10:08)
[2023-09-02 10:12] LABS: HEMATOCRIT 27.9 % (35.4-49); HEMOGLOBIN 8.8 GM/dL (11.7-16.9); MCH 23.3 pg (25.7-33.7); MCHC 31.5 g/dl (32.0-35.9); MEAN PLT VOLUME 9.4 fl (7.5-11.1); PLATELET COUNT 172 10^3/uL (134-434); RBC 3.77 M/mm3 (4.00-5.60); WHITE BLOOD COUNT 7.8 K/mm3 (4.0-10.0)
[2023-09-02 10:39] LABS: CHLORIDE 109 mmol/L (98-107); POTASSIUM 4.2 mmol/L (3.5-5.1); SODIUM 142 mmol/L (136-145)
[2023-09-02 10:43] LABS: ANISOCYTOSIS 1+; MACROCYTOSIS 0; OVALOCYTE 0; TARGET CELLS 1+
[2023-09-02 10:45] LABS: ALBUMIN 2.5 g/dl (3.4-5.0); ANION GAP 4 mmol/L (4-13); CALCIUM 8.5 mg/dL (8.5-10.1); CO2 28 mmol/L (21-32)
[2023-09-02 10:46] LABS: BLOOD UREA NITROGEN 28.5 mg/dL (7-18); GLUCOSE,RANDOM 101 mg/dL (74-106); MAGNESIUM 2.4 mg/dL (1.8-2.4)
[2023-09-02 10:49] LABS: CREATININE 0.8 mg/dL (0.55-1.3); SGOT/AST 11 U/L (15-37)
[2023-09-02 10:50] LABS: BILIRUBIN,TOTAL 0.6 mg/dL (0.2-1); TOT PROT 5.8 g/dl (6.4-8.2)
[2023-09-02 10:51] LABS: ALK PHOS 78 U/L (45-117); SGPT/ALT < 6 U/L (13-61)
[2023-09-02 23:50] VITALS: BMI 20.4
[2023-09-03 08:51] LABS: HEMATOCRIT 27.6 % (35.4-49); HEMOGLOBIN 8.8 GM/dL (11.7-16.9); MCH 23.5 pg (25.7-33.7); MCHC 31.9 g/dl (32.0-35.9); MEAN CELL VOLUME 73.8 fl (80-96); MEAN PLT VOLUME 9.3 fl (7.5-11.1); PLATELET COUNT 189 10^3/uL (134-434); RBC 3.74 M/mm3 (4.00-5.60); RDW 14.3 % (11.9-15.9)
[2023-09-03 09:34] LABS: ANISOCYTOSIS 0; MACROCYTOSIS 0
[2023-09-03 10:11] LABS: POTASSIUM 4.1 mmol/L (3.5-5.1)
[2023-09-03 10:14] LABS: ALBUMIN 2.8 g/dl (3.4-5.0); BLOOD UREA NITROGEN 18.4 mg/dL (7-18); CALCIUM 8.6 mg/dL (8.5-10.1); MAGNESIUM 2.3 mg/dL (1.8-2.4)
[2023-09-03 10:17] LABS: CREATININE 0.7 mg/dL (0.55-1.3)
[2023-09-03 10:19] LABS: BILIRUBIN,TOTAL 0.8 mg/dL (0.2-1); TOT PROT 6.1 g/dl (6.4-8.2)
[2023-09-04] MEDS: rOPINIRole HCL 0.5 MG TABLET PO SCH (07:10)
[2023-09-04 08:16] LABS: BASO % 0.6 % (0-2.0); EOS % 5.7 % (0-4.5); HEMATOCRIT 27.6 % (35.4-49); HEMOGLOBIN 8.7 GM/dL (11.7-16.9); LYMPH % 14.1 % (8-40); MCH 23.3 pg (25.7-33.7); MCHC 31.4 g/dl (32.0-35.9); MEAN CELL VOLUME 74.2 fl (80-96); MONO % 9.8 % (3.8-10.2); NEUT % 69.8 % (42.8-82.8); PLATELET COUNT 202 10^3/uL (134-434); RBC 3.73 M/mm3 (4.00-5.60); RDW 14.1 % (11.9-15.9)
[2023-09-04 08:24] LABS: POTASSIUM 4.2 mmol/L (3.5-5.1)
[2023-09-04 08:30] LABS: ALBUMIN 2.6 g/dl (3.4-5.0); BLOOD UREA NITROGEN 17.1 mg/dL (7-18); CALCIUM 8.7 mg/dL (8.5-10.1); MAGNESIUM 2.5 mg/dL (1.8-2.4)
[2023-09-04 08:33] LABS: CREATININE 0.8 mg/dL (0.55-1.3)
[2023-09-04 08:35] LABS: BILIRUBIN,TOTAL 0.6 mg/dL (0.2-1)
[2023-09-04] MEDS: ACETAMINOPHEN 325 MG TABLET (FP) PO PRN (17:12)
[2023-09-06 10:54] VITALS: RESP 18
[2023-09-07 05:06] VITALS: TEMP 97.6
[2023-09-07 13:34] VITALS: BP 126/68; PULSE 73
== END 2023-09-07 14:10 | DRG 481 ==
LOC: JER 13:31 → JERBED 23:44 → J6S 08-31 16:39
PROVIDERS: ADMIT Internal Medicine; ATTEND Nurse Practitioner Family
PROC: 0QS734Z Reposition Left Upper Femur with Internal Fixation Device, Percutaneous Approach (ICD-10-PCS; principal; 2023-09-03)
DX: S72.142A Displaced intertrochanteric fracture of left femur, initial encounter for closed fracture (principal); I50.30 Unspecified diastolic (congestive) heart failure; I11.0 Hypertensive heart disease with heart failure; F02.80 Dementia in other diseases classified elsewhere, unspecified severity, without behavioral disturbance, psychotic disturbance, mood disturbance, and anxiety; G20.A1 Parkinson's disease without dyskinesia, without mention of fluctuations; E78.5 Hyperlipidemia, unspecified; W19.XXXA Unspecified fall, initial encounter; Y93.9 Activity, unspecified; Y92.89 Other specified places as the place of occurrence of the external cause; Y99.9 Unspecified external cause status
CPT/HCPCS: 0241U-QW; 36415; 71045-TC-FY; 72170-TC-FY; 72192-TC; 73521-TC-FY; 76000-TC-FY; 80048; 80053; 83735; 84100; 84484; 85025; 85027; 85610; 85730; 86850; 86900; 86901; 87635; 93005; 93010; 94760; 97116-GP; 97162-GP; 99285-25; C1713

== ENCOUNTER 2024-08-30 16:35 | Observation (INO) | payer OTHER ==
[2024-08-30] MEDS ORDERED: ACETAMINOPHEN INJECTION 100 ML ONE (18:48)
[2024-08-30] MEDS: ACETAMINOPHEN 1000 MG/100 ML BAG IVPB ONE (18:50)
[2024-08-30 18:54] LABS: BASO % 0.5 % (0-2.0); EOS % 1.7 % (0-4.5); HEMATOCRIT 37.1 % (35.4-49); HEMOGLOBIN 11.7 GM/dL (11.7-16.9); LYMPH % 21.9 % (8-40); MCH 23.7 pg (25.7-33.7); MCHC 31.7 g/dl (32.0-35.9); MEAN CELL VOLUME 74.8 fl (80-96); MEAN PLT VOLUME 9.6 fl (7.5-11.1); MONO % 10.7 % (3.8-10.2); NEUT % 65.2 % (42.8-82.8); PLATELET COUNT 162 10^3/uL (134-434); RBC 4.96 M/mm3 (4.00-5.60); RDW 15.3 % (11.9-15.9); WHITE BLOOD COUNT 7.6 K/mm3 (4.0-10.0)
[2024-08-30 19:11] LABS: CHLORIDE 108 mmol/L (98-107); SODIUM 139 mmol/L (136-145)
[2024-08-30 19:16] LABS: ALBUMIN 3.3 g/dl (3.4-5.0); ANION GAP 0 mmol/L (4-13); BLOOD UREA NITROGEN 28.2 mg/dL (7-18); CALCIUM 8.5 mg/dL (8.5-10.1); CO2 32 mmol/L (21-32)
[2024-08-30 19:17] LABS: GLUCOSE,RANDOM 96 mg/dL (74-106)
[2024-08-30 19:19] LABS: SGPT/ALT 24 U/L (13-61)
[2024-08-30 19:20] LABS: CREATININE 0.9 mg/dL (0.55-1.3); SGOT/AST 73 U/L (15-37)
[2024-08-30 19:21] LABS: BILIRUBIN,TOTAL 0.4 mg/dL (0.2-1); TOT PROT 6.8 g/dl (6.4-8.2)
[2024-08-30 19:22] LABS: ALK PHOS 119 U/L (45-117)
[2024-08-30 22:53] LABS: EPI CELLS 1 /uL (0-25.1); HYALINE CASTS 2 /uL (0-3.1); PH,URINE 5.5 (5.0-8.0); URINE APPEARANCE CLEAR; URINE BACTERIA >9,000 /uL (0-1359); URINE BILIRUBIN NEGATIVE (NEGATIVE); URINE COLOR YELLOW; URINE GLUCOSE (UA) NEGATIVE (NEGATIVE); URINE KETONE TRACE (NEGATIVE); URINE LEUK ESTERASE 2+ (NEGATIVE); URINE NITRITE POSITIVE (NEGATIVE); URINE PROTEIN TRACE (NEGATIVE); URINE RBC 14 /uL (0-23.9); URINE UROBILINOGEN 0.2 mg/dL (0.2-1.0); URINE WBC 584 /uL (0-25.8)
[2024-08-30] MEDS ORDERED: CEFTRIAXONE 1 G/50 ML PREMIX 50 ML IVPB ONE (23:25)
[2024-08-31] MEDS ORDERED: MEROPENEM-0.9% SODIUM CHLORIDE 1 GM/50 ML BAG IVPB ONE ×2 (00:05→10:59)
[2024-08-31] MEDS: MEROPENEM 1 GM in SODIUM CHLORIDE 50 ML IVPB ONE (00:17)
[2024-08-31 05:52] LABS: HEMATOCRIT 36.8 % (35.4-49); HEMOGLOBIN 11.3 GM/dL (11.7-16.9); MCH 23.4 pg (25.7-33.7); MCHC 30.8 g/dl (32.0-35.9); MEAN CELL VOLUME 76.1 fl (80-96); MEAN PLT VOLUME 9.7 fl (7.5-11.1); PLATELET COUNT 157 10^3/uL (134-434); RBC 4.84 M/mm3 (4.00-5.60); RDW 14.9 % (11.9-15.9); WHITE BLOOD COUNT 8.5 K/mm3 (4.0-10.0)
[2024-08-31 06:07] LABS: POTASSIUM 3.9 mmol/L (3.5-5.1)
[2024-08-31 06:09] LABS: BLOOD UREA NITROGEN 19.5 mg/dL (7-18); CALCIUM 8.8 mg/dL (8.5-10.1)
[2024-08-31 06:13] LABS: CREATININE 0.7 mg/dL (0.55-1.3)
[2024-08-31] MEDS: CEFTRIAXONE 1 GM in DEXTROSE 5%-WATER - 100 ML IVPB ONE (07:36)
[2024-08-31] MEDS: MEROPENEM 1 GM in DEXTROSE 5%-WATER 100 ML IVPB ONE (07:37)
[2024-08-31] MEDS: MEROPENEM-0.9% SODIUM CHLORIDE 1 GM/50 ML BAG IVPB SCH (10:59)
[2024-08-31] MEDS ORDERED: ASPIRIN 81 MG CHEWABLE TABLETS ONE (15:06)
[2024-08-31] MEDS ORDERED: FOLIC ACID 1 MG TABLET (FP) ONE (15:06)
[2024-08-31] MEDS ORDERED: ATENOLOL 50 MG TABLET (FP) ONE (15:06)
[2024-08-31] MEDS ORDERED: LISINOPRIL 10 MG TABLET ONE (15:07)
[2024-08-31] MEDS ORDERED: ENOXAPARIN NA (PORCINE) 40 MG/0.4 ML DISP.SYRIN SQ ONE (15:07)
[2024-08-31] MEDS ORDERED: CARBIDOPA/LEVODOPA 25/100 TABLET (FP) ONE (15:07)
[2024-08-31] MEDS: DEXTROSE 5%-NORMAL SALINE 1,000 ML IV SCH (15:15)
[2024-08-31] MEDS: FOLIC ACID 1 MG TABLET (FP) PO SCH (15:35)
[2024-08-31] MEDS: ENOXAPARIN NA (PORCINE) 40 MG/0.4 ML DISP.SYRIN SQ SCH (15:35)
[2024-08-31] MEDS: CARBIDOPA/LEVODOPA 25/100 TABLET (FP) PO SCH (15:35)
[2024-08-31] MEDS: ATENOLOL 25 MG TABLET (FP) PO SCH (15:35)
[2024-08-31] MEDS: ASPIRIN 81 MG CHEWABLE TABLETS PO SCH (15:35)
[2024-08-31] MEDS: rOPINIRole HCL 0.5 MG TABLET PO SCH (15:38)
[2024-08-31] MEDS: LISINOPRIL 10 MG TABLET PO SCH (15:50)
[2024-08-31] MEDS ORDERED: CEFTRIAXONE 1 G/50 ML PREMIX 50 ML IVPB ONE (19:13)
[2024-08-31] MEDS: CEFTRIAXONE 1 G/50 ML PREMIX 50 ML IVPB SCH (19:17)
[2024-08-31] MEDS: MEROPENEM 1 GM in DEXTROSE 5%-WATER 100 ML IVPB SCH (20:06)
[2024-09-01] MEDS: TAMSULOSIN HCL 0.4 MG CAP PO SCH (09:04)
[2024-09-01] MEDS ORDERED: ALBUTEROL SO4 HFA INHALER IH PRN (17:42)
[2024-09-01] MEDS: ATORVASTATIN CA 10 MG TABLET (FP) PO SCH (21:46)
[2024-09-01] MEDS: AMANTADINE HCL 100 MG TABLET PO SCH (21:55)
[2024-09-01] MEDS: rOPINIRole HCL 0.25 MG TABLET PO SCH (22:41)
[2024-09-02 08:38] LABS: HEMOGLOBIN 10.3 GM/dL (11.7-16.9); MCH 23.6 pg (25.7-33.7); MCHC 31.1 g/dl (32.0-35.9); MEAN CELL VOLUME 75.9 fl (80-96); PLATELET COUNT 156 10^3/uL (134-434); RBC 4.34 M/mm3 (4.00-5.60); RDW 14.7 % (11.9-15.9); WHITE BLOOD COUNT 4.8 K/mm3 (4.0-10.0)
[2024-09-02 08:54] LABS: POTASSIUM 4.5 mmol/L (3.5-5.1)
[2024-09-02 08:56] LABS: CALCIUM 8.6 mg/dL (8.5-10.1)
[2024-09-02 09:00] LABS: CREATININE 0.8 mg/dL (0.55-1.3)
[2024-09-02] MEDS: FERROUS SO4 325 MG TABLET (FP) PO SCH (09:31)
[2024-09-02] MEDS: MEROPENEM-0.9% SODIUM CHLORIDE 1 GM/50 ML BAG IVPB SCH ×2 (12:23→23:27)
[2024-09-02] MEDS: rOPINIRole HCL 0.5 MG TABLET PO SCH (13:48)
[2024-09-02] MEDS: SODIUM CHLORIDE 500 ML IV STA (16:25)
[2024-09-02] MEDS ORDERED: MEROPENEM-0.9% SODIUM CHLORIDE 1 GM/50 ML BAG IVPB SCH (18:00)
[2024-09-02] MEDS: CARBIDOPA/LEVODOPA 25/100 TABLET (FP) PO SCH (23:27)
[2024-09-03 08:28] LABS: HEMATOCRIT 33.5 % (35.4-49); HEMOGLOBIN 10.4 GM/dL (11.7-16.9); MCH 23.4 pg (25.7-33.7); MCHC 31.1 g/dl (32.0-35.9); MEAN CELL VOLUME 75.3 fl (80-96); MEAN PLT VOLUME 10.1 fl (7.5-11.1); PLATELET COUNT 153 10^3/uL (134-434); RBC 4.45 M/mm3 (4.00-5.60); RDW 14.1 % (11.9-15.9); WHITE BLOOD COUNT 6.5 K/mm3 (4.0-10.0)
[2024-09-03 08:31] LABS: POTASSIUM 4.4 mmol/L (3.5-5.1)
[2024-09-03 08:37] LABS: BLOOD UREA NITROGEN 26.2 mg/dL (7-18); CALCIUM 8.8 mg/dL (8.5-10.1)
[2024-09-03 08:41] LABS: CREATININE 0.9 mg/dL (0.55-1.3)
[2024-09-04 08:35] LABS: POTASSIUM 4.3 mmol/L (3.5-5.1)
[2024-09-04 08:43] LABS: ALBUMIN 3.1 g/dl (3.4-5.0); BLOOD UREA NITROGEN 19.8 mg/dL (7-18); CALCIUM 8.7 mg/dL (8.5-10.1); MAGNESIUM 2.5 mg/dL (1.8-2.4)
[2024-09-04 08:44] LABS: BILIRUBIN,TOTAL 0.6 mg/dL (0.2-1)
[2024-09-04 08:46] LABS: TOT PROT 6.1 g/dl (6.4-8.2)
[2024-09-04 09:07] LABS: CREATININE 0.6 mg/dL (0.55-1.3)
[2024-09-04] MEDS: amLODIPine BESYLATE 10 MG TABLET (FP) PO SCH (10:00)
[2024-09-05 16:21] VITALS: BMI 19.3
[2024-09-06] MEDS: MEROPENEM-0.9% SODIUM CHLORIDE 1 GM/50 ML BAG IVPB SCH (08:54)
[2024-09-07] MEDS ORDERED: MORPHINE SULFATE/0.9% NACL/PF 100 MG/100 ML BAG ONE (15:19)
[2024-09-10] MEDS ORDERED: ACETAMINOPHEN 325 MG TABLET (FP) PO PRN (18:13)
[2024-09-10 22:08] VITALS: RESP 16
[2024-09-11 05:35] VITALS: TEMP 97.9
[2024-09-11 07:15] VITALS: BP 112/64; PULSE 82
== END 2024-09-11 10:54 | disposition home or self-care (01) ==
LOC: JER 16:35 → JERBED 20:09 → J4S 08-31 20:51
PROVIDERS: ADMIT Internal Medicine; ATTEND Internal Medicine
PROC: 3E033NZ Introduction of Analgesics, Hypnotics, Sedatives into Peripheral Vein, Percutaneous Approach (ICD-10-PCS; principal; 2024-08-30)
PROC: 3E033GC Introduction of Other Therapeutic Substance into Peripheral Vein, Percutaneous Approach (ICD-10-PCS; 2024-08-30)
PROC: 3E0337Z Introduction of Electrolytic and Water Balance Substance into Peripheral Vein, Percutaneous Approach (ICD-10-PCS; 2024-08-30)
PROC: 3E013VG Introduction of Insulin into Subcutaneous Tissue, Percutaneous Approach (ICD-10-PCS; 2024-08-30)
DX: N39.0 Urinary tract infection, site not specified (principal); Z16.12 Extended spectrum beta lactamase (ESBL) resistance; I10 Essential (primary) hypertension; G20.A1 Parkinson's disease without dyskinesia, without mention of fluctuations; R53.1 Weakness; I69.351 Hemiplegia and hemiparesis following cerebral infarction affecting right dominant side; F02.80 Dementia in other diseases classified elsewhere, unspecified severity, without behavioral disturbance, psychotic disturbance, mood disturbance, and anxiety; R29.6 Repeated falls; Z87.440 Personal history of urinary (tract) infections; W18.39XA Other fall on same level, initial encounter; Y93.89 Activity, other specified; Y92.009 Unspecified place in unspecified non-institutional (private) residence as the place of occurrence of the external cause; N40.0 Benign prostatic hyperplasia without lower urinary tract symptoms
CPT/HCPCS: 0241U-QW; 36415; 70450-TC; 71045-TC-FY; 72125-TC; 73110-TC-LT-FY; 73130-TC-LT-FY; 73200-TC-RT; 73560-TC-LT-FY; 73610-TC-LT-FY; 73700-TC-RT; 80048; 80053; 80307; 81003; 82962; 83735; 84100; 84132; 84484; 85025; 85027; 87086; 87186; 93005; 93010; 96361; 96365; 96366; 96367; 96372; 96375; 97116-GP; 99285-25; G0378; J0131